=== PATIENT | male | born 1985 | race Caucasian/White ===

== ENCOUNTER 2020-07-30 08:06 | Outpatient (REF) | payer OTHER, SELFPAY ==
[2020-07-30 09:03] LABS: MANUAL DIFF FLAG NO
[2020-07-30 09:11] LABS: Basophils Absolute Auto 0.1 X10*3/uL (0.0-0.2); Basophils Percent Auto 1.2 % (0-2); Eosinophils Absolute Auto 0.1 X10*3/uL (0.0-0.4); Eosinophils Percent Auto 2.1 % (0-4); Hemoglobin 14.8 g/dl (14.0-18.0); Imm Gran Abs Auto 0.01 X10*3/uL (0.00-0.03); Imm Gran Pct Auto 0.2 % (0.0-0.4); Lymphocytes Absolute Auto 1.9 X10*3/uL (1.2-4.9); Lymphocytes Percent Auto 37.1 % (20-40); Mean Corpuscular HGB Conc 32.9 g/dl (31.0-36.0); Mean Corpuscular Volume 85.2 fL (80-98); Mean Platelet Volume 11.3 fL (9.4-12.4); Monocytes Absolute Auto 0.3 X10*3/uL (0.1-1.2); Neutrophils Absolute Auto 2.8 X10*3/uL (2.0-8.3); Neutrophils Percent Auto 53.4 % (45-73); Platelet Count 279 X10*3/uL (160-400); Red Blood Count 5.28 X10*6/uL (4.60-5.80); Red Cell Distribution Width 12.1 % (11.0-16.0); White Blood Count 5.2 X10*3/uL (4.8-10.8)
[2020-07-30 09:27] LABS: Anion Gap 13 (12-20); Blood Urea Nitrogen 12 mg/dL (9-16); Calcium 9.5 mg/dL (8.4-10.2); Carbon Dioxide 28 mmol/L (22-29); Chloride 103 mmol/L (96-108); Cholesterol 197 mg/dL; Estimated Glomerular Filt Rate > 60; Glucose Fasting 99 mg/dL (60-99); HDL Cholesterol 41 mg/dL; LDL Cholesterol Calculated 138 mg/dl; Potassium 4.5 mmol/l (3.3-5.1); Sodium 139 mmol/L (135-145); Triglycerides 94 mg/dL
== END 2020-07-30 08:07 | disposition home or self-care (01) ==
LOC: HO.LAB 08:06
PROVIDERS: PCP Internal Medicine; Visit Provider Internal Medicine
DX: E78.9 Disorder of lipoprotein metabolism, unspecified (principal)
CPT/HCPCS: 36415; 80048; 80061; 85025

== ENCOUNTER 2021-07-15 07:23 | Outpatient (REF) | payer OTHER, SELFPAY ==
[2021-07-15 09:19] LABS: Alanine Aminotransferase 66 U/L (0-40); Albumin Level 4.5 g/dL (3.5-5.0); Alkaline Phosphatase 58 U/L (39-117); Anion Gap 12 (12-20); Aspartate Amino Transferase 39 U/L (5-37); Bilirubin Total 0.5 mg/dL (0.0-1.0); Blood Urea Nitrogen 12 mg/dL (9-16); Calcium 9.6 mg/dL (8.4-10.2); Carbon Dioxide 26 mmol/L (22-29); Chloride 106 mmol/L (96-108); Cholesterol 200 mg/dL; Estimated Glomerular Filt Rate > 60; Glucose Fasting 101 mg/dL (60-99); HDL Cholesterol 37 mg/dL; LDL Cholesterol Calculated 141 mg/dl; Potassium 4.4 mmol/L (3.3-5.1); Sodium 140 mmol/L (135-145); Total Protein 7.6 g/dL (6.5-8.0); Triglycerides 114 mg/dL
== END 2021-07-15 07:24 | disposition home or self-care (01) ==
LOC: HO.LAB 07:23
PROVIDERS: PCP Internal Medicine; Visit Provider Internal Medicine
DX: E78.9 Disorder of lipoprotein metabolism, unspecified (principal)
CPT/HCPCS: 36415; 80053; 80061

== ENCOUNTER 2024-03-10 10:05 | Outpatient (AMB) | payer OTHER, SELFPAY ==
[2024-03-10 10:13] VITALS: BP 140/80; PULSE 77; TEMP 36.7; O2SAT 98
--- NOTE | 2024-03-10 10:13 | AM.OFFWIN_ITS ---
Intake Vital Signs 03/10/24 10:13 Height 5 ft 7 in BP 140/80 H Blood Pressure Location Rt brachial Position Sitting Pulse 77 Pulse Source Pulse Oximeter Temp 98.0 F Temp Source Temporal Artery Scan Pulse Oximetry (%) 98 Oxygen Delivery Method Room Air Intake Visit Reasons: EP RT side neck/shoulder pain Intake Note: pt is here for right side neck and shoulder pain Patient Tobacco Use Status: Never used Tobacco Allergies penicillin V Allergy (Unknown, Verified 03/10/24 10:13) unknown - childhood reaction Penicillins [PENICILLINS] Allergy (Unknown, Verified 03/10/24 10:13) ? RXN - OCCURED CHILD Medication List - Last Reconciled 03/10/24 by Idania Pritchett MD No Known Home Meds Do you need a note to return to daycare/school/sports/work: Yes HPI EP RT side neck/shoulder pain HPI Details Patient is a 38-year-old gentleman came in today to be evaluated for neck pain radiating to right arm Patient says that at certain position he feels shooting pain going down his right arm When he is shaving and has to look up that is when his symptoms are worse There is no weakness in the arm On examination her hand hand endband cutter is strong bilateral and equal Patient has had similar problem couple of years ago which then resolved This time it has been happening for the past 1 and half month He is taking Motrin with some relief I am ordering x-ray of his cervical spine I have also sent in script for prednisone 20 mg once a day for 5 days And diclofenac 75 mg b.i.d. with food for 10 days Patient is to return in couple of weeks for follow-up appointment [facility] Medical History Lipid disorder Family History Father Smoker ETOH abuse History of splenectomy Substance use disorder Mother Smoker Maternal Grandmother No problems noted. Maternal Grandfather HTN (hypertension) Diabetes mellitus Paternal Grandmother No problems noted. Paternal Grandfather No problems noted. Brother No problems noted. Brother No problems noted. Brother No problems noted. Brother No problems noted. Sister No problems noted. Son No problems noted. Daughter No problems noted. Other Mental health disorder Social History Housing: Apartment Alcohol intake: never Patient Tobacco Use Status: Never used Tobacco Tobacco use type: Cigarette Current occupational status: employed Review of Systems Const All systems reviewed & are unremarkable except as noted in HPI and below Physical Exam Vital Signs: Last Vital Signs Temp 98.0 F 03/10/24 10:13 Pulse 77 03/10/24 10:13 BP 140/80 H 03/10/24 10:13 Pulse Ox 98 03/10/24 10:13 Oxygen Delivery Method Room Air 03/10/24 10:13 Const General: no acute distress Orientation/consciousness: patient oriented x3 Eyes General: appearance normal, both eyes and all related structures Neck Other: Limited range of motion in extension due to pain radiating to right shoulder Resp Effort & Inspection: normal respiratory effort and able to speak in complete sentences Neuro General: patient oriented x3 Psych Mental Status: mental status grossly normal Assessment & Plan Assessment & Plan (1) Cervical radiculitis: Code(s): M54.12 - Radiculopathy, cervical region Plan Patient is a 38-year-old gentleman came in today to be evaluated for neck pain radiating to right arm Patient says that at certain position he feels shooting pain going down his right arm When he is shaving and has to look up that is when his symptoms are worse There is no weakness in the arm On examination her hand hand endband cutter is strong bilateral and equal Patient has had similar problem couple of years ago which then resolved This time it has been happening for the past 1 and half month He is taking Motrin with some relief I am ordering x-ray of his cervical spine I have also sent in script for prednisone 20 mg once a day for 5 days And diclofenac 75 mg b.i.d. with food for 10 days Patient is to return in couple of weeks for follow-up appointment Orders: Orders XR cervical spine 2V Today M54.12 - Radiculopathy, cervical region Medications: New prednisone 20 mg PO DAILY 5 tabs 0RF 5 days diclofenac sodium 25 mg PO BID 20 tabs 0RF 10 days Coding Level of Care Code Est Pt Level 4 (20445) Diagnoses Cervical radiculitis M54.12
== END 2024-03-10 10:48 | disposition home or self-care (01) ==
PROVIDERS: PCP Internal Medicine; Visit Provider Internal Medicine
DX: M54.12 Radiculopathy, cervical region (principal)
CPT/HCPCS: 99214

== ENCOUNTER 2024-03-10 10:40 | Outpatient (REF) | payer OTHER, SELFPAY ==
--- NOTE | ~2024-03-10 | XR_ITS ---
EXAMINATION: XR CERVICAL SPINE CLINICAL INFORMATION: Radiculopathy cervical region. COMPARISON: None available. TECHNIQUE: 2 views of the cervical spine. FINDINGS: Straightening of the normal cervical lordosis. Limited visualization of C7 due to overlying bony and soft tissue structures. Mild multilevel cervical spondylosis with mild loss of disc space height at C5-C6. XR/XR cervical spine 2V IMPRESSION: Mild multilevel cervical spondylosis with mild loss of disc space height at C5-C6.
== END 2024-03-10 10:41 | disposition home or self-care (01) ==
LOC: HO.HMGCX 10:40
PROVIDERS: PCP Internal Medicine; Visit Provider Internal Medicine
DX: M54.12 Radiculopathy, cervical region (principal)
CPT/HCPCS: 72040

== ENCOUNTER 2024-04-09 08:30 | Outpatient (AMB) | payer OTHER, SELFPAY ==
--- NOTE | 2024-04-09 08:31 | A.OFFPC_ITS ---
Intake Visit Reasons: 3WK F/U [place] visit Allergies penicillin V Allergy (Unknown, Verified 04/09/24 08:31) unknown - childhood reaction Penicillins [PENICILLINS] Allergy (Unknown, Verified 04/09/24 08:31) ? RXN - OCCURED CHILD Medication List - Last Reconciled 04/09/24 by Idania Pritchett MD Tobacco use date assessed: 04/09/24 Dental Screening Dental Screen Date: 04/09/24 Did you have a dental visit in the last 12 months?: Yes Did you have a dental problem in the last 6 months where you did not have access to dental care?: No Was dental information given to patient?: Patient has dentist HPI 3WK F/U [place] visit HPI Details f.u neck pain he was seen in walk in clinic few days ago was treated with Prednison and diclofenic Xray was ordered which showed Mild multilevel cervical spondylosis with mild loss of disc space height at C5-C6 patient states he keep getting shooting pain right arm and meds didnt help him he continue to work i have placed ref to pain management for further evaluation [facility] Medical History Lipid disorder Family History Father Smoker ETOH abuse History of splenectomy Substance use disorder Mother Smoker Maternal Grandmother No problems noted. Maternal Grandfather HTN (hypertension) Diabetes mellitus Paternal Grandmother No problems noted. Paternal Grandfather No problems noted. Brother No problems noted. Brother No problems noted. Brother No problems noted. Brother No problems noted. Sister No problems noted. Son No problems noted. Daughter No problems noted. Other Mental health disorder Social History Housing: Apartment Alcohol intake: never Patient Tobacco Use Status: Never used Tobacco Tobacco use type: Cigarette e-Cigarette/Vaping Use: Never Used service: No Current occupational status: employed Cognitive needs: No Hearing needs: No Vision needs: No Questionnaire Thrive Questionnaire Date Thrive assessed: 07/18/21 AUDIT C Alcohol Use Questionnaire (AUDIT-C) 1. How often do you have a drink containing alcohol?: Never 3. How often do you have six or more drinks on one occasion?: Never Total Score: 0 Score Reviewed/Action Taken: Yes CARMELINA-7 AMB Questionnaire CARMELINA-7 Date CARMELINA - 7 assessed: 07/18/21 Source: Developed by Drs. Stevan Cabello, Jayleen Maldonado, Giovany Khan and colleagues, with an educational jim from [employer]. Review of Systems Const Denies chills and Denies fever(s) ENT Denies epistaxis and Denies nasal discharge Card Denies chest pain Resp Denies chest congestion, Denies cough and Denies hemoptysis GI Denies diarrhea and Denies nausea Skin/Breast Denies rash Neuro Reports no additional complaints Psych Reports no additional complaints Endo Reports no additional complaints Physical exam (Primary Care) Tobacco/Smoking Status: Tobacco use Status Tobacco use date assessed 04/09/24 04/09/24 08:32 Patient Tobacco Use Status Never used Tobacco 04/09/24 08:32 Tobacco use type Cigarette 04/09/24 08:32 e-Cigarette/Vaping Use Never Used 04/09/24 08:32 Thrive Assessment: Date of Thrive Assessment Date Thrive assessed 07/18/21 04/09/24 08:32 Telehealth Telehealth Telehealth Platform: [employer] Location of provider rendering services: practice address Location of patient: address on file Patient Identification confirmed using: Name, : Yes Telehealth method: video Patient verbally consented to treatment: Yes Patient verbally consented to billing insurance company: Yes Minutes spent on Phone/Video with Pt.: 13 Assessment and Plan Assessment & Plan (1) Cervical radiculitis: Code(s): M54.12 - Radiculopathy, cervical region (2) Arm paresthesia, right: Code(s): R20.2 - Paresthesia of skin Plan f.u neck pain he was seen in walk in clinic few days ago was treated with Prednison and diclofenic Xray was ordered which showed Mild multilevel cervical spondylosis with mild loss of disc space height at C5-C6 patient states he keep getting shooting pain right arm and meds didnt help him he continue to work i have placed ref to pain management for further evaluation Orders: Referrals Pain Management Referral M54.12 - Radiculopathy, cervical region, R20.2 - Par esthesia of skin Coding Level of Care Code Tele Est Pt Level 3 (49808) Diagnoses Cervical radiculitis M54.12 Arm paresthesia, right R20.2
== END 2024-04-09 08:45 | disposition home or self-care (01) ==
LOC: HO.HMGC 08:30
PROVIDERS: PCP Internal Medicine; Visit Provider Internal Medicine
DX: M54.12 Radiculopathy, cervical region (principal); R20.2 Paresthesia of skin
CPT/HCPCS: 99213

== ENCOUNTER 2024-04-29 10:01 | Outpatient (AMB) | payer OTHER, SELFPAY ==
[2024-04-29 10:09] VITALS: BP 154/86; PULSE 78; O2SAT 99; BMI 39.5
--- NOTE | 2024-04-29 10:09 | MHC.OFFVIS ---
Vital Signs 04/29/24 10:09 Height 5 ft 7 in Weight 252 lb BMI 39.5 BP 154/86 H Blood Pressure Location Rt brachial Position Sitting Pulse 78 Pulse Source Pulse Oximeter Pulse Oximetry (%) 99 Oxygen Delivery Method Room Air Intake Visit Reasons: Radiculopathy, cervical region Allergies penicillin V Allergy (Unknown, Verified 04/29/24 10:10) unknown - childhood reaction Penicillins [PENICILLINS] Allergy (Unknown, Verified 04/29/24 10:10) ? RXN - OCCURED CHILD HPI Comments Details: Devin is a very pleasant 38-year-old male who presents the office today for evaluation and management of his chronic neck pain. Patient reports he has been suffering with this pain for approximately 3 months. He is unsure if it is related to heavy workouts at the gym or sleeping position. He does deny any known trauma/fall/accident. Pain today is rated as a 2/10, constant worse in the evenings Endorses some tightness across the trapezius and up into the hairline on both sides. Worse at the end of the day in after he has worked a stressful day Patient originally was evaluated in the walk-in, he was given diclofenac and prednisone which did not improve his pain. He had a recent x-ray which was reviewed, results as per below In the past he has taken Flexeril in the evening which has helped with his pain. 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 or dropping objects from the end In terms of muscle damage condition is described as tugging, pulling, tingling, burning, numb, tingling, aching, pinching Pain is negatively impacting patient's enjoyment of life, general activity, working, recreational activities including weightlifting in gym exercises Denies current use of anticoagulants Denies implantable devices, pacemaker or defibrillator Denies current use of nicotine, tobacco, alcohol or illicit substances [facility] Medical History Lipid disorder Family History Father Smoker ETOH abuse History of splenectomy Substance use disorder Mother Smoker Maternal Grandmother No problems noted. Maternal Grandfather HTN (hypertension) Diabetes mellitus Paternal Grandmother No problems noted. Paternal Grandfather No problems noted. Brother No problems noted. Brother No problems noted. Brother No problems noted. Brother No problems noted. Sister No problems noted. Son No problems noted. Daughter No problems noted. Other Mental health disorder Social History Housing: Apartment Alcohol intake: never Patient Tobacco Use Status: Never used Tobacco Tobacco use type: Cigarette e-Cigarette/Vaping Use: Never Used service: No Current occupational status: employed Cognitive needs: No Hearing needs: No Vision needs: No Review of Systems Const All systems reviewed & are unremarkable except as noted in HPI and below Physical Exam Vital Signs: Last Vital Signs Pulse 78 04/29/24 10:09 BP 154/86 H 04/29/24 10:09 Pulse Ox 99 04/29/24 10:09 Oxygen Delivery Method Room Air 04/29/24 10:09 BMI result Body Mass Index 39.5 General: awake, alert, oriented. Answers questions appropriately. Fully engaged in examination. Skin: warm, dry, intact HEENT: Normocephalic. Hearing intact. Cardiac: External chest normal in appearance. Respiratory: No cough, audible wheezing or stridor. Abdomen: without gross distension. MS: No obvious swelling or deformities. Able to transition from sit to stand unassisted. Ambulates with bilaterally normal heel strike and toe off Cervical Spine: Visible inspection without gross abnormality Moderate tenderness throughout bilateral upper and middle trapezius muscles Minimally tender to palpation midline cervical vertebrae and cervical paraspinal muscles Cervical range of motion preserved Spurling compression test positive BUE strength 5/5 Elvey's tension test positive on the right Neurological: Oriented to person, place, time and situation. Thought process intact. No gait abnormalities appreciated. Psychiatric: Appropriate mood and affect. Good judgment and insight. Results Reviewed Results Reviewed: 03/10/24 XR/XR cervical spine 2V FINDINGS: Straightening of the normal cervical lordosis. Limited visualization of C7 due to overlying bony and soft tissue structures. Mild multilevel cervical spondylosis with mild loss of disc space height at C5-C6. IMPRESSION: Mild multilevel cervical spondylosis with mild loss of disc space height at C5-C6. Assessment & Plan Assessment & Plan (1) Cervical radiculitis: Code(s): M54.12 - Radiculopathy, cervical region Category: Medical Plan Devin is a very pleasant 30-year-old male who presented to the office today for evaluation management of his chronic right shoulder pain. MRI ordered for evaluation given patient's reported numbness and tingling of the right upper extremity. Order placed for PT eval and treat Continue with Tylenol and ibuprofen as needed New prescription for cyclobenzaprine 10 mg p.o. twice daily as needed. Patient advised on cautions for use. No driving while taking this medication. 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 All questions and concerns were answered, patient agrees with the plan. Follow up after MRI/PT, sooner if needed. Orders: Orders MR cervical spine wo con Today M54.12 - Radiculopathy, cervical region PT Evaluation and Treatment Today M54.12 - Radiculopathy, cervical region, M62.838 - Other muscle spasm, S16.1XXA - Strain of muscle, fascia and tendon at neck level, initial encounter Coding Level of Care Code New Pt Level 4 (01352) Complex EM visit Add On G2211 Diagnoses Cervical radiculitis M54.12
== END 2024-04-29 10:49 | disposition home or self-care (01) ==
PROVIDERS: PCP Internal Medicine; Visit Provider Registered Nurse Emergency
DX: M54.12 Radiculopathy, cervical region (principal)
CPT/HCPCS: 99204; G2211

== ENCOUNTER → 2024-04-29 10:01 | Outpatient (BNVA) | payer OTHER, SELFPAY | PROVIDERS: PCP Internal Medicine; Visit Provider Registered Nurse Emergency | DX: M54.12 Radiculopathy, cervical region (principal) | CPT/HCPCS: 99202 ==

== ENCOUNTER 2024-05-17 18:33 | Outpatient (REF) | payer OTHER, SELFPAY ==
--- NOTE | ~2024-05-17 | MR_ITS ---
EXAMINATION: MR CERVICAL SPINE WITHOUT CONTRAST CLINICAL INFORMATION: Right-sided neck pain, weakness and numbness. COMPARISON: No priors. Correlated with x-ray dated March 10, 2024. TECHNIQUE: MRI of the cervical spine was obtained using routine sequences without contrast. FINDINGS: Craniocervical junction is intact. No bone marrow STIR signal abnormality. Multilevel marginal osteophyte formation and decreased dislocation C4-5, C5-6 and to a lesser extent C6-7. The alignment is normal. Cervical spinal cord signal is normal. C2-3: No disc herniation. No cord compression. No neuroforamina stenosis. C3-4: Broad-based disc osteophyte complex formation. No cord compression. No neuroforamina stenosis. C4-5: Broad-based disc osteophyte complex formation. No cord compression. No neuroforamina stenosis. C5-6: Right subarticular and foraminal disc herniation resulting in ventral deformity of the spinal cord without cord signal abnormality. Right neural foramina stenosis encroaching the exiting nerve roots. C6-7: Broad-based disc osteophyte complex formation. No cord compression. No neuroforamina stenosis. C7-T1: No disc herniation. No neuroforamina stenosis. No prevertebral compartment hematoma, mass or fluid collection. Flow void signal within the mean vessels is normal. Codominant vertebral arteries. MR/MR cervical spine wo con IMPRESSION: Right subarticular and foraminal disc herniation, C5-6 likely compressing the exiting nerve root. No cord edema and or myelopathy Electronically signed by: Cory Puentes MD 06/22/2024 10:13 AM EDT
== END 2024-05-17 18:34 | disposition home or self-care (01) ==
LOC: HO.MRI 18:33
PROVIDERS: PCP Internal Medicine; Visit Provider Registered Nurse Emergency
DX: M54.12 Radiculopathy, cervical region (principal)
CPT/HCPCS: 72141

== ENCOUNTER → 2024-05-17 18:33 | Outpatient (BNV) | payer OTHER, SELFPAY | PROVIDERS: PCP Internal Medicine; Visit Provider Radiology Diagnostic Radiology | DX: M54.12 Radiculopathy, cervical region (principal); R53.1 Weakness | CPT/HCPCS: 72141 ==

== ENCOUNTER 2024-06-13 06:56 | Outpatient (REF) | payer OTHER, SELFPAY ==
[2024-06-13 08:45] LABS: Alanine Aminotransferase 45 U/L (0-40); Albumin Level 4.3 g/dL (3.5-5.0); Alkaline Phosphatase 67 U/L (39-117); Anion Gap 12 (12-20); Aspartate Amino Transferase 28 U/L (5-37); Bilirubin Total 0.6 mg/dL (0.0-1.0); Blood Urea Nitrogen 12 mg/dL (9-16); Calcium 9.4 mg/dL (8.4-10.2); Carbon Dioxide 29 mmol/L (22-29); Chloride 104 mmol/L (96-108); Cholesterol 336 mg/dL (<200); Estimated Glomerular Filt Rate > 60; Glucose Fasting 99 mg/dL (60-99); HDL Cholesterol 33 mg/dL (>40); LDL Cholesterol Calculated 236 mg/dL (<100); Potassium 4.1 mmol/L (3.3-5.1); Sodium 141 mmol/L (135-145); Total Protein 7.7 g/dL (6.5-8.0); Triglycerides 336 mg/dL (<150)
[2024-06-18 17:08] LABS: Testosterone, Total 347 ng/dL (250-1100)
== END 2024-06-13 06:57 | disposition home or self-care (01) ==
LOC: HO.LAB 06:56
PROVIDERS: PCP Internal Medicine; Visit Provider Internal Medicine
DX: R79.89 Other specified abnormal findings of blood chemistry (principal); E78.9 Disorder of lipoprotein metabolism, unspecified; R53.83 Other fatigue
CPT/HCPCS: 36415; 80053; 80061; 84403

== ENCOUNTER 2024-06-18 08:27 | Outpatient (AMB) | payer OTHER, SELFPAY ==
--- NOTE | 2024-06-18 09:34 | MHC.PC.OV ---
Vital Signs 06/18/24 09:35 Height 5 ft 7 in Weight 253 lb BMI 39.6 Intake Visit Reasons: Discuss Results~ Allergies penicillin V Allergy (Unknown, Verified 04/29/24 10:10) unknown - childhood reaction Penicillins [PENICILLINS] Allergy (Unknown, Verified 04/29/24 10:10) ? RXN - OCCURED CHILD Medication List - Last Reconciled 06/18/24 by Idania Pritchett MD cyclobenzaprine 10 mg PO BID lidocaine 5% 1 patch topical DAILY PRN Tobacco use date assessed: 04/09/24 Dental Screening Dental Screen Date: 04/09/24 HPI Discuss Results~ HPI Details Patient is 38-year-old gentleman this is a telemedicine visit to go over his labs His LDL came back above 200 Patient says that he used to take medication for high lipids but then he stopped taking it I have sent simvastatin 40 mg for the patient he is to restart that and repeat labs again in 6 weeks I would encourage diet-controlled as well Patient says that he is trying to lose weight but he has not been successful He would like to have a referral to weight loss program [facility] His testosterone level came back within normal range [facility] Medical History Lipid disorder Family History Father Smoker ETOH abuse History of splenectomy Substance use disorder Mother Smoker Maternal Grandmother No problems noted. Maternal Grandfather HTN (hypertension) Diabetes mellitus Paternal Grandmother No problems noted. Paternal Grandfather No problems noted. Brother No problems noted. Brother No problems noted. Brother No problems noted. Brother No problems noted. Sister No problems noted. Son No problems noted. Daughter No problems noted. Other Mental health disorder Social History Housing: Apartment Alcohol intake: never Patient Tobacco Use Status: Never used Tobacco Tobacco use type: Cigarette e-Cigarette/Vaping Use: Never Used service: No Current occupational status: employed Cognitive needs: No Hearing needs: No Vision needs: No Questionnaire Thrive Questionnaire Date Thrive assessed: 07/18/21 CARMELINA-7 AMB Questionnaire CARMELINA-7 Date CARMELINA - 7 assessed: 07/18/21 Source: Developed by Drs. Stevan Cabello, Jayleen Maldonado, Giovany Khan and colleagues, with an educational jim from [email or web address]. Review of Systems Const Denies chills and Denies fever(s) ENT Denies epistaxis and Denies nasal discharge Card Denies chest pain Resp Denies chest congestion, Denies cough and Denies hemoptysis GI Denies diarrhea and Denies nausea Skin/Breast Denies rash Neuro Reports no additional complaints Psych Reports no additional complaints Endo Reports no additional complaints Physical exam (Primary Care) BMI result Body Mass Index 39.6 Tobacco/Smoking Status: Tobacco use Status Tobacco use date assessed 04/09/24 06/18/24 09:36 Patient Tobacco Use Status Never used Tobacco 06/18/24 09:36 Tobacco use type Cigarette 06/18/24 09:36 e-Cigarette/Vaping Use Never Used 06/18/24 09:36 Thrive Assessment: Date of Thrive Assessment Date Thrive assessed 07/18/21 06/18/24 09:36 Telehealth Telehealth Telehealth Platform: [employer] Location of provider rendering services: practice address Location of patient: address on file Patient Identification confirmed using: Name, : Yes Telehealth method: voice only Patient verbally consented to treatment: Yes Patient verbally consented to billing insurance company: Yes Patient informed of any privacy concerns related to visit: Yes Minutes spent on Phone/Video with Pt.: 13 Coding Level of Care Code Tele Est Pt Level 3 (82342) Diagnoses Lipid disorder E78.9 Class 2 severe obesity due to excess calories with serious comorbidity and body mass index (BMI) of 39.0 to 39.9 in adult E66.812; E66.01; Z68.39 Serious obesity comorbidity presence: with serious comorbidity Body mass index: BMI 39.0-39.9 Obesity classification: adult class 2 (BMI 35 - 39.9) Assessment & Plan Assessment & Plan (1) Lipid disorder: Code(s): E78.9 - Disorder of lipoprotein metabolism, unspecified Category: Medical (2) Obesity due to excess calories: Code(s): E66.09 - Other obesity due to excess calories Category: Medical Qualifiers: Serious obesity comorbidity presence: with serious comorbidity Body mass index: BMI 39.0-39.9 Obesity classification: adult class 2 (BMI 35 - 39.9) Qualified Code(s): E66.812 - Obesity, class 2; E66.01 - Morbid (severe) obesity due to excess calories; Z68.39 - Body mass index [BMI] 39.0-39.9, adult Plan Patient is 38-year-old gentleman this is a telemedicine visit to go over his labs His LDL came back above 200 Patient says that he used to take medication for high lipids but then he stopped taking it I have sent simvastatin 40 mg for the patient he is to restart that and repeat labs again in 6 weeks I would encourage diet-controlled as well Patient says that he is trying to lose weight but he has not been successful He would like to have a referral to weight loss program [facility] His testosterone level came back within normal range Orders: Orders Lipid Panel 6 Weeks E78.9 - Disorder of lipoprotein metabolism, unspecified Comprehensive [place]. Panel Fast 6 Weeks E78.9 - Disorder of lipoprotein metabolism, unspecified Referrals Bariatric Surgery Referral E66.09 - Other obesity due to excess calories Medications: New simvastatin 40 mg PO QPM 90 tabs 0RF
[2024-06-18 09:35] VITALS: BMI 39.6
== END 2024-06-18 11:25 | disposition home or self-care (01) ==
PROVIDERS: PCP Internal Medicine; Visit Provider Internal Medicine
DX: E78.9 Disorder of lipoprotein metabolism, unspecified (principal); E66.812 Obesity, class 2; E66.01 Morbid (severe) obesity due to excess calories; Z68.39 Body mass index [BMI] 39.0-39.9, adult

== ENCOUNTER → 2024-06-18 08:27 | Outpatient (BNVA) | payer OTHER, SELFPAY | PROVIDERS: PCP Internal Medicine; Visit Provider Internal Medicine ==

== ENCOUNTER 2024-07-01 09:41 | Outpatient (AMB) | payer OTHER, SELFPAY ==
--- NOTE | 2024-07-01 10:18 | A.OFFVIS_ITS ---
Intake Visit Reasons: Discuss MRI results Allergies penicillin V Allergy (Unknown, Verified 04/29/24 10:10) unknown - childhood reaction Penicillins [PENICILLINS] Allergy (Unknown, Verified 04/29/24 10:10) ? RXN - OCCURED CHILD HPI Comments Details: Telephone visit completed today with Devin for follow-up, review of recent MRI MRI reviewed, results as per below Continues with neck pain that radiates down the right arm. denies numbness, tingling, weakness of the right upper extremity Prior: Devin is a very pleasant 38-year-old male who presents the office today for evaluation and management of his chronic neck pain. Patient reports he has been suffering with this pain for approximately 3 months. He is unsure if it is related to heavy workouts at the gym or sleeping position. He does deny any known trauma/fall/accident. Pain today is rated as a 2/10, constant worse in the evenings Endorses some tightness across the trapezius and up into the hairline on both sides. Worse at the end of the day in after he has worked a stressful day Patient originally was evaluated in the walk-in, he was given diclofenac and prednisone which did not improve his pain. He had a recent x-ray which was reviewed, results as per below In the past he has taken Flexeril in the evening which has helped with his pain. 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 strength or dropping objects from the end In terms of muscle damage condition is described as tugging, pulling, tingling, burning, numb, tingling, aching, pinching Pain is negatively impacting patient's enjoyment of life, general activity, working, recreational activities including weightlifting in gym exercises Denies current use of anticoagulants Denies implantable devices, pacemaker or defibrillator Denies current use of nicotine, tobacco, alcohol or illicit substances [facility] Medical History Lipid disorder Family History Father Smoker ETOH abuse History of splenectomy Substance use disorder Mother Smoker Maternal Grandmother No problems noted. Maternal Grandfather HTN (hypertension) Diabetes mellitus Paternal Grandmother No problems noted. Paternal Grandfather No problems noted. Brother No problems noted. Brother No problems noted. Brother No problems noted. Brother No problems noted. Sister No problems noted. Son No problems noted. Daughter No problems noted. Other Mental health disorder Social History Housing: Apartment Alcohol intake: never Patient Tobacco Use Status: Never used Tobacco Tobacco use type: Cigarette e-Cigarette/Vaping Use: Never Used service: No Current occupational status: employed Cognitive needs: No Hearing needs: No Vision needs: No Review of Systems Const All systems reviewed & are unremarkable except as noted in HPI and below Physical Exam Telephone visit only, vital signs and physical exam deferred Telehealth Telehealth Telehealth Platform: Telephone Location of provider rendering services: practice address Location of patient: address on file Patient Identification confirmed using: Name, : Yes Telehealth method: voice only Patient verbally consented to treatment: Yes Patient verbally consented to billing insurance company: Yes Patient informed of any privacy concerns related to visit: Yes Minutes spent on Phone/Video with Pt.: 8 Results Reviewed Results Reviewed: 04/2024 MR CS FINDINGS: Craniocervical junction is intact. No bone marrow STIR signal abnormality. Multilevel marginal osteophyte formation and decreased dislocation C4-5, C5-6 and to a lesser extent C6-7. The alignment is normal. Cervical spinal cord signal is normal. C2-3: No disc herniation. No cord compression. No neuroforamina stenosis. C3-4: Broad-based disc osteophyte complex formation. No cord compression. No neuroforamina stenosis. C4-5: Broad-based disc osteophyte complex formation. No cord compression. No neuroforamina stenosis. C5-6: Right subarticular and foraminal disc herniation resulting in ventral deformity of the spinal cord without cord signal abnormality. Right neural foramina stenosis encroaching the exiting nerve roots. C6-7: Broad-based disc osteophyte complex formation. No cord compression. No neuroforamina stenosis. C7-T1: No disc herniation. No neuroforamina stenosis. No prevertebral compartment hematoma, mass or fluid collection. Flow void signal within the mean vessels is normal. Codominant vertebral arteries. IMPRESSION: Right subarticular and foraminal disc herniation, C5-6 likely compressing the exiting nerve root. No cord edema and or myelopathy 03/10/24 XR/XR cervical spine 2V FINDINGS: Straightening of the normal cervical lordosis. Limited visualization of C7 due to overlying bony and soft tissue structures. Mild multilevel cervical spondylosis with mild loss of disc space height at C5-C6. IMPRESSION: Mild multilevel cervical spondylosis with mild loss of disc space height at C5-C6. Assessment & Plan Assessment & Plan (1) Cervical radiculitis: Code(s): M54.12 - Radiculopathy, cervical region Category: Medical (2) Cervical disc disorder: Code(s): M50.90 - Cervical disc disorder, unspecified, unspecified cervical region Category: Medical Plan Telephone visit completed today for follow-up, review recent MRI MRI reviewed, results as per above Patient has exhausted conservative therapy including PT, home exercise program, [id number] medications, nonsteroidal anti-inflammatory medications, muscle relaxers all without improvement of his symptoms Discussed options for treatment including diagnostic interventional testing, epidural steroid injections, peripheral nerve stimulation with Sprint, RFA and more permanent neuromodulation. Will schedule for fluoroscopy guided right C5-6 parasagittal epidural steroid injection with local anesthetic All questions and concerns were answered, patient agrees with the plan. Follow up after injection, sooner if needed. Coding Level of Care Code Tele Est Pt Level 3 (50990) Complex EM visit Add On G2211 Diagnoses Cervical radiculitis M54.12 Cervical disc disorder M50.90
== END 2024-07-01 10:44 | disposition home or self-care (01) ==
LOC: HO.PMC 09:41
PROVIDERS: PCP Internal Medicine; Visit Provider Registered Nurse Emergency
DX: M54.12 Radiculopathy, cervical region (principal); M50.90 Cervical disc disorder, unspecified, unspecified cervical region
CPT/HCPCS: 99213; G2211

== ENCOUNTER → 2024-07-01 09:41 | Outpatient (BNVA) | payer OTHER, SELFPAY | PROVIDERS: PCP Internal Medicine; Visit Provider Registered Nurse Emergency ==

== ENCOUNTER 2024-08-01 09:03 | Outpatient (AMB) | payer OTHER, SELFPAY ==
[2024-08-01 09:21] VITALS: BP 136/90; PULSE 99; TEMP 36.7; O2SAT 99; BMI 35.2
--- NOTE | 2024-08-01 09:21 | MHC.OFFWIV ---
Intake Vital Signs 08/01/24 09:21 Height 5 ft 7 in Weight 225 lb BMI 35.2 BP 136/90 H Blood Pressure Location Lt brachial Position Sitting Pulse 99 Pulse Source Pulse Oximeter Temp 98.0 F Temp Source Oral Pulse Oximetry (%) 99 Oxygen Delivery Method Room Air Intake Visit Reasons: EP- Medication sec. effects Intake Note: Pt is here today c/o side effect of simvastatin: dry mouth and burning sensation Patient Tobacco Use Status: Never used Tobacco Allergies penicillin V Allergy (Unknown, Verified 08/01/24 09:24) unknown - childhood reaction Penicillins [PENICILLINS] Allergy (Unknown, Verified 08/01/24 09:24) ? RXN - OCCURED CHILD simvastatin Adverse Reaction (Uncoded 08/01/24 09:24) dry mouth HPI EP- Medication sec. effects HPI Details Patient is concerned that he is having a side effect of simvastatin: dry mouth and burning sensation in his mild with a small white spot. Discontinued simvastatin 2 days ago. Patient has very high cholesterol. He also notes that he had been on gemfibrozil in the past for elevated lipids. [facility] Medical History Lipid disorder Family History Father Smoker ETOH abuse History of splenectomy Substance use disorder Mother Smoker Maternal Grandmother No problems noted. Maternal Grandfather HTN (hypertension) Diabetes mellitus Paternal Grandmother No problems noted. Paternal Grandfather No problems noted. Brother No problems noted. Brother No problems noted. Brother No problems noted. Brother No problems noted. Sister No problems noted. Son No problems noted. Daughter No problems noted. Other Mental health disorder Social History Housing: Apartment Alcohol intake: never Patient Tobacco Use Status: Never used Tobacco Tobacco use type: Cigarette e-Cigarette/Vaping Use: Never Used service: No Current occupational status: employed Cognitive needs: No Hearing needs: No Vision needs: No Review of Systems ENT Details: White spot in mouth and dry mouth/irritation. Physical Exam Vital Signs: Last Vital Signs Temp 98.0 F 08/01/24 09:21 Pulse 99 08/01/24 09:21 BP 136/90 H 08/01/24 09:21 Pulse Ox 99 08/01/24 09:21 Oxygen Delivery Method Room Air 08/01/24 09:21 BMI result Body Mass Index 35.2 Const Other: No acute distress. Patient appears well HEENT Other: Mild erythema of oral mucosa and small white spot which patient says he scrapped off Assessment & Plan Assessment & Plan (1) Thrush, oral: Code(s): B37.0 - Candidal stomatitis Plan: Patient appears to have oral thrush. Will give him nystatin swish and swallow Hydrate well Call or return to office if worsening or not improving (2) Lipid disorder: Code(s): E78.9 - Disorder of lipoprotein metabolism, unspecified Plan: Discussed with patient that he has a significant hyperlipidemia. May not have tolerated simvastatin but should consider another statin medication for LDL cholesterol over 200 Patient agrees to try atorvastatin. Will send script Advised he follow-up with his PCP Medications: New nystatin swish and swallow 5 mL PO DAILY 10 days 50 mL 1RF atorvastatin 40 mg PO BEDTIME 90 days 90 tabs 1RF Coding Level of Care Code Est Pt Level 3 (74109) Diagnoses Thrush, oral B37.0 Lipid disorder E78.9
== END 2024-08-01 12:00 | disposition home or self-care (01) ==
LOC: HO.HMCWIC 09:04
PROVIDERS: PCP Internal Medicine
DX: B37.0 Candidal stomatitis (principal); E78.9 Disorder of lipoprotein metabolism, unspecified

== ENCOUNTER → 2024-08-01 09:03 | Outpatient (BNVA) | payer OTHER, SELFPAY | PROVIDERS: PCP Internal Medicine | DX: B37.0 Candidal stomatitis (principal); E78.9 Disorder of lipoprotein metabolism, unspecified | CPT/HCPCS: 99212 ==

== ENCOUNTER 2024-08-04 06:06 | Outpatient (REF) | payer OTHER, SELFPAY ==
--- NOTE | ~2024-08-04 | FL_ITS ---
EXAMINATION: FLUORO GUIDANCE IN TREATMENT ROOM CLINICAL INFORMATION: Cervical disc disorder, unspecified, unspecified cervical region. COMPARISON: None available. TECHNIQUE: Fluoroscopy supervised by: Dr. Puma Eaton. Fluoroscopy time: 0.2 minutes. Cumulative Dose: 1.5 mGy. DAP: 0.0261 mGy-m2 (milligray-meter squared). Images: 2. FINDINGS: A needle is present in the epidural space on the right side in the cervical spine. It is difficult to ascertain the level from the provided images. Injected contrast appears to be in the epidural space. FL/FL guidance in treatment room IMPRESSION: Fluoroscopy during procedure. Please see procedure report for additional information. Electronically signed by: Salvatore Casas MD 09/23/2024 04:50 PM [facility]
== END 2024-08-04 06:07 | disposition home or self-care (01) ==
LOC: CF 06:06
PROVIDERS: Visit Provider Anesthesiology
DX: M50.90 Cervical disc disorder, unspecified, unspecified cervical region (principal); M54.12 Radiculopathy, cervical region
CPT/HCPCS: 62321; J1100; J2003; Q9967

== ENCOUNTER 2024-08-04 08:30 | Outpatient (AMB) | payer OTHER, SELFPAY ==
[2024-08-04 08:38] VITALS: BP 136/92; PULSE 99; RESP 15; O2SAT 99
--- NOTE | 2024-08-04 08:38 | MHC.OFFVIS ---
Vital Signs 08/04/24 08:38 08/04/24 09:18 BP 136/92 H 126/86 Blood Pressure Location Lt brachial Lt brachial Position Sitting Sitting Respiration 15 14 Pulse 99 93 Pulse Source Pulse Oximeter Pulse Oximeter Pulse Oximetry (%) 99 100 Oxygen Delivery Method Room Air Room Air Intake Visit Reasons: RIGHT C5, C6 PARASAGITTAL RADHA Allergies penicillin V Allergy (Unknown, Verified 08/04/24 08:39) unknown - childhood reaction Penicillins [PENICILLINS] Allergy (Unknown, Verified 08/04/24 08:39) ? RXN - OCCURED CHILD simvastatin Adverse Reaction (Uncoded 08/04/24 08:39) dry mouth Medication List - Last Reconciled 08/04/24 by Eliana Barnett LPN atorvastatin 40 mg PO BEDTIME 90 days cyclobenzaprine 10 mg PO BID lidocaine 5% 1 patch topical DAILY PRN nystatin 5 mL PO DAILY 10 days [facility] Medical History Lipid disorder Family History Father Smoker ETOH abuse History of splenectomy Substance use disorder Mother Smoker Maternal Grandmother No problems noted. Maternal Grandfather HTN (hypertension) Diabetes mellitus Paternal Grandmother No problems noted. Paternal Grandfather No problems noted. Brother No problems noted. Brother No problems noted. Brother No problems noted. Brother No problems noted. Sister No problems noted. Son No problems noted. Daughter No problems noted. Other Mental health disorder Social History Housing: Apartment Alcohol intake: never Patient Tobacco Use Status: Never used Tobacco Tobacco use type: Cigarette e-Cigarette/Vaping Use: Never Used service: No Current occupational status: employed Cognitive needs: No Hearing needs: No Vision needs: No Physical Exam Vital Signs: Last Vital Signs Pulse 93 08/04/24 09:18 Resp 14 08/04/24 09:18 BP 126/86 08/04/24 09:18 Pulse Ox 100 08/04/24 09:18 Oxygen Delivery Method Room Air 08/04/24 09:18 Assessment & Plan Assessment & Plan (1) Cervical radiculitis: Code(s): M54.12 - Radiculopathy, cervical region Category: Medical Plan Interlaminar C5-C6 epidural steroid injection more to the right, Informed consent was obtained delineating name and date of of the patient side and site of the procedure nature of the procedure. Risks and benefits were explained as bleeding infection peripheral nerve damage spinal cord damage headache and other undisclosed risks. Patient agreed to go for the procedure. Patient came to the operating room and he was positioned prone on operating table with a pillow under the chest. The the upper back in posterior neck of the patient's were prepped with ChloraPrep and draped with sterile utility self adhesive towels. C-arm was brought over the operating field and sq picture of C5 and C6 vertebra were demonstrated on the screen. Projection of the right lamina of C6 was chosen as the start of the injection. The projection of the right lamina of C6 very close to the spinous process to the skin was injected with lidocaine 2%. After that 20 gauge Touhy needle was inserted through the skin and advanced to were the C5-C6 epidural space on anterior posterior, contralateral oblique and lateral views. When on lateral view the needle went 1 mm beyond interlaminar line injection of the contrast was performed demonstrating epidural spread of the contrast. After the treatment solution of the normal saline preservative-free 4 mLs mixed with Decadron 10 mg with trace amount of preservative-free lidocaine was injected into the needle. The needle was withdrawn sterile Band-Aid was applied. Orders: Orders FL guidance in treatment room Today M50.90 - Cervical disc disorder, unspecified, unspecified cervical region Coding Level of Care Code Procedure Only Diagnoses Cervical radiculitis M54.12
[2024-08-04 09:18] VITALS: BP 126/86; PULSE 93; RESP 14; O2SAT 100
== END 2024-08-04 09:17 | disposition home or self-care (01) ==
LOC: HO.PMCPRC 08:30
PROVIDERS: PCP Internal Medicine; Visit Provider Anesthesiology
DX: M54.12 Radiculopathy, cervical region (principal)
CPT/HCPCS: 62321

== ENCOUNTER 2024-08-25 09:47 | Outpatient (AMB) | payer OTHER, SELFPAY ==
--- NOTE | 2024-08-25 10:03 | A.OFFVIS_ITS ---
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 RXN - OCCURED CHILD simvastatin Adverse Reaction (Uncoded 08/04/24 08:39) dry mouth HPI Comments Details: Patient presents the office today for follow-up, 3 weeks status post right C5-6 epidural steroid injection Denies any relief after the injection. Continues with shooting pain down the right arm and numbness tingling to the fingers when he looks to the left or when he looks up in slightly to the left. He also endorses muscle spasm around the right scapula. Tenderness to palpation. Pain today is rated as a 4/10 He has been using ice and topical with some improvement though short lasting. 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 denies numbness, tingling, weakness of the right upper extremity Prior: Devin is a very pleasant 38-year-old male who presents the office today for evaluation and management of his chronic neck pain. Patient reports he has been suffering with this pain for approximately 3 months. He is unsure if it is related to heavy workouts at the gym or sleeping position. He does deny any known trauma/fall/accident. Pain today is rated as a 2/10, constant worse in the evenings Endorses some tightness across the trapezius and up into the hairline on both sides. Worse at the end of the day in after he has worked a stressful day Patient originally was evaluated in the walk-in, he was given diclofenac and prednisone which did not improve his pain. He had a recent x-ray which was reviewed, results as per below In the past he has taken Flexeril in the evening which has helped with his pain. 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 Endorses with some positions of his head and right arm he will develop shooting tingling numbness down the arm into the hand to include the pinky and ring finger Denies weakness of the right hand, denies decreased internal communications specialist strength or dropping objects from the end In terms of muscle damage condition is described as tugging, pulling, tingling, burning, numb, tingling, aching, pinching Pain is negatively impacting patient's enjoyment of life, general activity, working, recreational activities including weightlifting in gym exercises Denies current use of anticoagulants Denies implantable devices, pacemaker or defibrillator Denies current use of nicotine, tobacco, alcohol or illicit substances [facility] Medical History Lipid disorder Family History Father Smoker ETOH abuse History of splenectomy Substance use disorder Mother Smoker Maternal Grandmother No problems noted. Maternal Grandfather HTN (hypertension) Diabetes mellitus Paternal Grandmother No problems noted. Paternal Grandfather No problems noted. Brother No problems noted. Brother No problems noted. Brother No problems noted. Brother No problems noted. Sister No problems noted. Son No problems noted. Daughter No problems noted. Other Mental health disorder Social History Housing: Apartment Alcohol intake: never Patient Tobacco Use Status: Never used Tobacco Tobacco use type: Cigarette e-Cigarette/Vaping Use: Never Used service: No Current occupational status: employed Cognitive needs: No Hearing needs: No Vision needs: No Review of Systems Const All systems reviewed & are unremarkable except as noted in HPI and below Physical Exam Vital Signs: Last Vital Signs Pulse 98 08/25/24 10:06 BP 144/82 H 08/25/24 10:06 Pulse Ox 100 08/25/24 10:06 Oxygen Delivery Method Room Air 12/31/24 10:06 BMI result Body Mass Index 39.8 General: awake, alert, oriented. Answers questions appropriately. Fully engaged in examination. Skin: warm, dry, intact HEENT: Normocephalic. Hearing intact. Cardiac: External chest normal in appearance. Respiratory: No cough, audible wheezing or stridor. Abdomen: without gross distension. MS: No obvious swelling or deformities. Cervical Spine: Visible inspection without gross abnormality Tenderness to right trapezius/suprascapular area. Palpable trigger points and taut bands. Nontender over midline cervical vertebrae pain cervical paraspinal muscles Cervical range of motion preserved, endorses shooting pain down right arm with numbness and tingling to the fingers with left rotation and extension with slight left rotation BUE strength 5/5 Elvey's tension test positive on the right Neurological: Oriented to person, place, time and situation. Thought process intact. No gait abnormalities appreciated. Psychiatric: Appropriate mood and affect. Good judgment and insight. Results Reviewed Results Reviewed: 04/2024 MR CS FINDINGS: Craniocervical junction is intact. No bone marrow STIR signal abnormality. Multilevel marginal osteophyte formation and decreased dislocation C4-5, C5-6 and to a lesser extent C6-7. The alignment is normal. Cervical spinal cord signal is normal. C2-3: No disc herniation. No cord compression. No neuroforamina stenosis. C3-4: Broad-based disc osteophyte complex formation. No cord compression. No neuroforamina stenosis. C4-5: Broad-based disc osteophyte complex formation. No cord compression. No neuroforamina stenosis. C5-6: Right subarticular and foraminal disc herniation resulting in ventral deformity of the spinal cord without cord signal abnormality. Right neural foramina stenosis encroaching the exiting nerve roots. C6-7: Broad-based disc osteophyte complex formation. No cord compression. No neuroforamina stenosis. C7-T1: No disc herniation. No neuroforamina stenosis. No prevertebral compartment hematoma, mass or fluid collection. Flow void signal within the mean vessels is normal. Codominant vertebral arteries. IMPRESSION: Right subarticular and foraminal disc herniation, C5-6 likely compressing the exiting nerve root. No cord edema and or myelopathy 03/10/24 XR/XR cervical spine 2V FINDINGS: Straightening of the normal cervical lordosis. Limited visualization of C7 due to overlying bony and soft tissue structures. Mild multilevel cervical spondylosis with mild loss of disc space height at C5-C6. IMPRESSION: Mild multilevel cervical spondylosis with mild loss of disc space height at C5-C6. Assessment & Plan Assessment & Plan (1) Cervical radiculitis: Code(s): M54.12 - Radiculopathy, cervical region Category: Medical (2) Cervical disc disorder: Code(s): M50.90 - Cervical disc disorder, unspecified, unspecified cervical region Category: Medical (3) Strain of cervical portion of right trapezius muscle: Code(s): S16.1XXA - Strain of muscle, fascia and tendon at neck level, initial encounter Category: Medical (4) Myofascial pain on right side: Code(s): M79.18 - Myalgia, other site Category: Medical Plan Patient presented to the office today for follow up, 3 weeks status post right C5-6 RADHA Denies improvement of his pain or radiculopathy since the procedure. Referral placed for neuro spine Will schedule for right trapezius muscle trigger point injections with local anesthetic. These will be done in office with Dr. Eaton Patient has exhausted conservative therapy including PT, home exercise program, [id number] medications, nonsteroidal anti-inflammatory medications, muscle relaxers all without improvement of his symptoms All questions and concerns were answered, patient agrees with the plan. Follow up after neuro spine, sooner if needed. Orders: Referrals Neuro Spine Referral M54.12 - Radiculopathy, cervical region Coding Level of Care Code Est Pt Level 3 (79013) Complex EM visit Add On G2211 Diagnoses Cervical radiculitis M54.12 Cervical disc disorder M50.90 Strain of cervical portion of right trapezius muscle S16.1XXA Myofascial pain on right side M79.18
[2024-08-25 10:06] VITALS: BP 144/82; PULSE 98; O2SAT 100; BMI 39.8
== END 2024-08-25 10:23 | disposition home or self-care (01) ==
PROVIDERS: PCP Internal Medicine; Visit Provider Registered Nurse Emergency
DX: M54.12 Radiculopathy, cervical region (principal); M50.90 Cervical disc disorder, unspecified, unspecified cervical region; S16.1XXA Strain of muscle, fascia and tendon at neck level, initial encounter; M79.18 Myalgia, other site
CPT/HCPCS: 99213; G2211

== ENCOUNTER → 2024-08-25 09:47 | Outpatient (BNVA) | payer OTHER, SELFPAY | PROVIDERS: PCP Internal Medicine; Visit Provider Registered Nurse Emergency | DX: M54.12 Radiculopathy, cervical region (principal); M50.90 Cervical disc disorder, unspecified, unspecified cervical region; M79.18 Myalgia, other site; S16.1XXD Strain of muscle, fascia and tendon at neck level, subsequent encounter | CPT/HCPCS: 99212 ==

== ENCOUNTER 2024-08-27 10:55 | Outpatient (AMB) | payer OTHER, SELFPAY ==
--- NOTE | 2024-08-27 11:02 | A.OFFVIS_ITS ---
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 RXN - OCCURED CHILD simvastatin Adverse Reaction (Uncoded 08/27/24 11:39) dry mouth Medication List - Last Reconciled 08/27/24 by TIA Reyna-HANNAH atorvastatin 40 mg PO BEDTIME 90 days cyclobenzaprine 10 mg PO BID lidocaine 5% 1 patch topical DAILY PRN HPI Comments Details: Devin is a very pleasant 39-year-old male patient of Dr. Pritchett. He has a past medical history of lipid disorder. He presents to the office today as a new patient for borderline low testosterone. In discussion with the patient today reports having followed up with his PCP in discussing ongoing issues he has been experiencing with attempting to lose weight, lack of sleep, and changes to his mood at which time his testosterone was ordered in recommendations were made for urology referral for further assessment evaluation. These results were reviewed with the patient today. 06/18 testosterone 347. When asked he denies any previous history of recreational drug use. He denies any previous trauma however he does report previously having surgical intervention for right-sided testicular/scrotal cyst removal approximately 11 years ago. He denies any previous opioid and or steroid exposure. We discussed potential causes of borderline low testosterone as well as further assessment with hypogonadal labs. He denies any bothersome urinary issues. He denies urinary urgency, urinary frequency, incontinence, nocturia, hematuria, dysuria, foul smelling urine, changes to urinary stream, flank pain, fever, and or chills. He is happy with his current voiding parameters. He otherwise offers no other issues or concerns at this time. [facility] Medical History Lipid disorder Family History Father Smoker ETOH abuse History of splenectomy Substance use disorder Mother Smoker Maternal Grandmother No problems noted. Maternal Grandfather HTN (hypertension) Diabetes mellitus Paternal Grandmother No problems noted. Paternal Grandfather No problems noted. Brother No problems noted. Brother No problems noted. Brother No problems noted. Brother No problems noted. Sister No problems noted. Son No problems noted. Daughter No problems noted. Other Mental health disorder Social History Housing: Apartment Alcohol intake: never Patient Tobacco Use Status: Never used Tobacco Tobacco use type: Cigarette e-Cigarette/Vaping Use: Never Used service: No Current occupational status: employed Cognitive needs: No Hearing needs: No Vision needs: No Review of Systems Const All systems reviewed & are unremarkable except as noted in HPI and below Physical Exam Const General: cooperative, healthy appearing, comfortable, no acute distress, well developed, alert and awake Nutritional Appearance: overweight Orientation/consciousness: patient oriented x3 Limitations: no limitations HEENT Head: Yes normal to inspection, Yes normocephalic and Yes atraumatic Ears: hearing grossly normal bilaterally Eyes General: appearance normal, both eyes and all related structures Neck Neck: Yes normal visual inspection and Yes trachea midline Chest Chest palpation & inspection: normal inspection of the chest Resp Effort & Inspection: normal respiratory effort and able to speak in complete sentences Cardio Rate: regular rate GI Inspection: Yes normal to inspection General: Yes no CVA tenderness Back/Spine/Pelvis Back: no CVA tenderness Skin General skin exam: no rashes or lesions noted Neuro General: patient oriented x3 Extrem General: Yes normal to inspection Psych Appearance: grossly normal and well kempt Mental Status: mental status grossly normal Speech and movement: Normal speech and movement present and Clear speech present Affect: normal affect Attitude: cooperative Thought process: Normal thought process present Thought content: Normal thought content present Insight: Fair insight present (Psych) Judgement: Fair judgement present (Psych) Results AMB Urinalysis, Automated UA Leukoctes 0 Konstantin/uL Last Edit by Maryana Clarke on 08/27/24 11:24 UA Nitrite Last Edit by Maryana Clarke on 08/27/24 11:24 UA Urobilinogen 0.2 mg/dL Last Edit by Maryana Clarke on 08/27/24 11:24 UA Protein 15 mg/dL Last Edit by Maryana Clarke on 08/27/24 11:24 UA pH 6.0 Last Edit by Maryana Kassandrabronson on 08/27/24 11:24 UA Blood 0 Anup/uL Last Edit by Maryana Clarke on 08/27/24 11:24 UA Specific [place] 1.020 Last Edit by Maryana Clarke on 08/27/24 11:24 UA Ketone Last Edit by Maryana Clarke on 08/27/24 11:24 UA Bilirubin 0 mg/dL Last Edit by Maryana Clarke on 08/27/24 11:24 UA Glucose 0 mg/dL Last Edit by Maryana Clarke on 08/27/24 11:24 Results Reviewed Results Reviewed: Laboratory Last Values Urine pH (Auto) 6.0 08/27/24 11:23 Specific [place] (Auto) 1.020 08/27/24 11:23 Urine Protein (Auto) 15 mg/dL 08/27/24 11:23 Glucose (UA)(Auto) 0 mg/dL 08/27/24 11:23 Urine Blood (Auto) 0 Anup/uL 08/27/24 11:23 Urine Bilirubin (Auto) 0 mg/dL 08/27/24 11:23 Urine Urobilinogen (Auto) 0.2 mg/dL 08/27/24 11:23 Leukocyte Esterase (Auto) 0 Konstantin/uL 08/27/24 11:23 Assessment & Plan Assessment & Plan (1) Low testosterone: Code(s): R79.89 - Other specified abnormal findings of blood chemistry Category: Medical Plan In office urinalysis results reviewed with the patient today; as noted above. Recent testosterone results reviewed the patient today; as noted above. We discussed at length potential causes of borderline low testosterone. Discussed obtaining SHBG, LH, PSA, FSH, prolactin, and estradiol for further assessment evaluation; we discussed obtaining these labs 1-2 hours upon wakening. Discussed lifestyle modifications to assist with borderline low testosterone. Patient currently denies any bothersome urinary issues. He reports be happy with current voiding parameters Follow-up in 1-3 months with labs to be completed prior; or sooner with any issues, concerns, and or questions. Orders: Orders Sex Hormone Binding Globulin Today R79.89 - Other specified abnormal findings of blood chemistry Testosterone, Free/Total Today R79.89 - Other specified abnormal findings of blood chemistry AMB Urinalysis Automated Today Z13.9 - Encounter for screening, unspecified Lutenizing Hormone Today R79.89 - Other specified abnormal findings of blood chemistry Prostate Specific Antigen Today R79.89 - Other specified abnormal findings of blood chemistry Follicle Stimulating Hormone Today R79.89 - Other specified abnormal findings of blood chemistry Prolactin Today R79.89 - Other specified abnormal findings of blood chemistry Estradiol Ultra Sensitive Today E29.1 - Testicular hypofunction Patient Instructions: The patient had an opportunity to ask questions regarding the treatment plan. All questions were answered. Physical exam, labs, and imaging were discussed and reviewed in detail. As well as risks, benefits, and discussion of treatment choices. No major barriers to understanding were identified. The patient expressed understanding and agreement with the above treatment plan. The patient was made aware they should contact our office by phone for worsening of their current condition, the appearance of new symptoms, or with any questions or concerns. Compliance is encouraged with any medications and follow up testing that is ordered. It is a privilege to be allowed the opportunity to participate in? your urological care.? Again, if you have any questions or concerns If you have any questions or concerns please do not hesitate to contact me. The office is [phone]. This note is constructed using voice recognition software. While every effort has been made to ensure accuracy lead generation representative errors may have been included. Yours sincerely, PRAVEEN Reyna Coding Level of Care Code New Pt Level 3 (10618) Diagnoses Low testosterone R79.89
== END 2024-08-27 11:41 | disposition home or self-care (01) ==
PROVIDERS: PCP Internal Medicine; Visit Provider Nurse Practitioner Family
DX: R79.89 Other specified abnormal findings of blood chemistry (principal); Z13.9 Encounter for screening, unspecified
CPT/HCPCS: 99203

== ENCOUNTER → 2024-08-27 10:55 | Outpatient (BNVA) | payer OTHER, SELFPAY | PROVIDERS: PCP Internal Medicine; Visit Provider Nurse Practitioner Family | DX: R79.89 Other specified abnormal findings of blood chemistry (principal) | CPT/HCPCS: 81003; 99202 ==

== ENCOUNTER 2024-08-29 07:08 | Outpatient (REF) | payer OTHER, SELFPAY ==
[2024-08-29 07:53] LABS: Alanine Aminotransferase 116 U/L (0-40); Albumin Level 4.1 g/dL (3.5-5.0); Alkaline Phosphatase 80 U/L (39-117); Anion Gap 11 (12-20); Aspartate Amino Transferase 58 U/L (5-37); Bilirubin Total 0.8 mg/dL (0.0-1.0); Blood Urea Nitrogen 11 mg/dL (9-16); Calcium 9.1 mg/dL (8.4-10.2); Carbon Dioxide 26 mmol/L (22-29); Chloride 109 mmol/L (96-108); Cholesterol 157 mg/dL (<200); Estimated Glomerular Filt Rate > 60; Glucose Fasting 96 mg/dL (60-99); HDL Cholesterol 37 mg/dL (>40); LDL Cholesterol Calculated 87 mg/dL (<100); Potassium 3.7 mmol/L (3.3-5.1); Sodium 142 mmol/L (135-145); Total Protein 7.4 g/dL (6.5-8.0); Triglycerides 169 mg/dL (<150)
[2024-08-29 08:13] LABS: Prostate Specific Antigen 0.26 ng/mL (<0.05-4.0)
[2024-08-31 07:03] LABS: Follicle Stimulating Hormone 1.2 mIU/mL (1.4-12.8); Lutenizing Hormone 2.8 mIU/mL (1.5-9.3); Prolactin 14.9 ng/mL (2.0-18.0); Sex Hormone Binding Globulin 19 nmol/L (10-50)
[2024-09-03 17:33] LABS: Testosterone, Free 55.7 pg/mL (35.0-155.0); Testosterone, Total 293 ng/dL (250-1100)
[2024-09-06 00:04] LABS: Estradiol Ultra Sensitive 48 pg/mL (< OR = 29)
== END 2024-08-29 07:09 | disposition home or self-care (01) ==
LOC: HO.LAB 07:08
PROVIDERS: Absent Provider Nurse Practitioner Family; PCP Internal Medicine; Visit Provider Internal Medicine
DX: E29.1 Testicular hypofunction (principal); R79.89 Other specified abnormal findings of blood chemistry
CPT/HCPCS: 36415; 80053; 80061; 82670; 83001; 83002; 84146; 84153; 84270; 84402; 84403

== ENCOUNTER 2024-08-31 10:26 | Outpatient (AMB) | payer OTHER, SELFPAY ==
--- NOTE | 2024-08-31 10:29 | HO.SPINEOV ---
Vital Signs 08/31/24 10:36 Height 5 ft 7 in Weight 250 lb BMI 39.2 Intake Visit Reasons: cervical radiculopathy Intake Note: Mr. Claire is here today c/o neck pain that radiates down to mid back with right arm tingling of fingers. 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 RXN - OCCURED CHILD simvastatin Adverse Reaction (Uncoded 08/27/24 11:39) dry mouth Assessment & Plan Assessment & Plan (1) Cervical radiculopathy: Code(s): M54.12 - Radiculopathy, cervical region Category: Medical Plan Dear LARRY Vazquez, Thank you for referring Devin to our office today. He is a pleasant 39 year old male who comes in today as a referral from our colleagues in pain management. He reports about 7 months of neck pain with shooting pain into his right upper extremity. He recently had a right C5-6 epidural steroid injection and reports no relief from this injection. Per pain management notes the patient has exhausted conservative therapy including PT, home exercise program, shqo-[id number] medications, nonsteroidal anti-inflammatory medications, muscle relaxers all without improvement of his symptoms. When describing the shooting pains into his right upper extremity he states that it starts on the right side of his neck, shoots over the dorsal surface of his forearm, and terminates in his right thumb. He does report that his thumb intermittently will become numb/tingle when he has flare-ups of pain. He identifies an inciting incident of using a cable machine with his right arm at the gym back in January 2024. He reports that when engaging the machine he quickly turned his neck to the right to say hello to one of his friends, when he felt a pop in his neck causing him to drop the weight. Since then, he has had this pain. He has been having some difficulty sleeping at night, and had to buy a contour pillow, and sleep in a certain position in order to alleviate his pain. He denies any muscle weakness associated with the pain, denies any issues with dexterity, and reports no gait disturbances. PMH: High cholesterol. Denies any surgical history. Social hx: The patient does not smoke, reports no substance use. Medications: Atorvastatin, cyclobenzaprine, lidocaine patches. Allergies: Penicillin, simvastatin. Physical exam: The patient has 5/5 strength in his upper and lower extremities. He reports intermittent sensational deficits over the right thumb. Sensation is otherwise intact. Reflexes are 3+ hyperactive and bilateral patella. Reflexes are 2+ normal elsewhere. He has 2 subtle beats of clonus bilaterally. (-) King's, (-) Babinski's, (-) bilateral straight leg raise. Imaging review: MRI of the cervical spine completed here at [facility] shows right-sided paracentral disc herniation at C5-6 effacing the right side of the ventral cord & compressing the right exiting nerve root at this level. No evidence of cord signal change or myelomalacia. Impression: Devin is a pleasant 39-year-old male who comes in today with a chief complaint of neck pain and shooting pains into his right upper extremity. He has been suffering from this for about 7 months. He reports that overall the pain is relatively manageable and can be mitigated by lifestyle changes and positioning. I do believe his cervical radiculopathy as a result of the disc herniation seen at C5-6, as his pain and intermittent numbness/tingling matches this dermatomal distribution. He is at the point where he was not severely symptomatic and feels he can manage his symptoms fairly well. I encouraged him to continue pursuing treatments with our pain management team and to reach out to our office in the future if his pain worsens to the point where he would like to consider surgery. He is agreeable to this. Thank you for allowing us to care for your patient. The total time spent with this visit with this patient was 45 minutes reviewing history, physical exam, MRI imaging review, and implementation of treatment plan or further diagnostic testing Jesús Naranjo MD,PhD [facility] Coding Level of Care Code New Pt Level 4 (41624) Diagnoses Cervical radiculopathy M54.12
[2024-08-31 10:36] VITALS: BMI 39.2
== END 2024-08-31 11:34 | disposition home or self-care (01) ==
PROVIDERS: PCP Internal Medicine; Referring Provider Registered Nurse Emergency; Visit Provider Physician Assistant
DX: M54.12 Radiculopathy, cervical region (principal)
CPT/HCPCS: 99204

== ENCOUNTER 2024-09-02 09:38 | Outpatient (AMB) | payer OTHER, SELFPAY ==
[2024-09-02 09:42] VITALS: BP 126/78; PULSE 104; O2SAT 98; BMI 40.1
--- NOTE | 2024-09-02 09:42 | MHC.PC.OV ---
Vital Signs 09/02/24 09:42 Height 5 ft 7 in Weight 256 lb 2 oz BMI 40.1 BP 126/78 Blood Pressure Location Rt brachial Position Sitting Pulse 104 H Pulse Source Pulse Oximeter Pulse Oximetry (%) 98 Oxygen Delivery Method Room Air Intake Visit Reasons: f/u labs / lipids Allergies penicillin V Allergy (Unknown, Verified 09/02/24 09:42) unknown - childhood reaction Penicillins [PENICILLINS] Allergy (Unknown, Verified 09/02/24 09:42) ? RXN - OCCURED CHILD simvastatin Adverse Reaction (Uncoded 08/27/24 11:39) dry mouth Medication List - Last Reconciled 09/02/24 by Idania Pritchett MD atorvastatin 40 mg PO BEDTIME 90 days cyclobenzaprine 10 mg PO BID lidocaine 5% 1 patch topical DAILY PRN Tobacco use date assessed: 09/02/24 Dental Screening Dental Screen Date: 09/02/24 Did you have a dental visit in the last 12 months?: No Did you have a dental problem in the last 6 months where you did not have access to dental care?: No Was dental information given to patient?: Patient has dentist HPI f/u labs / lipids HPI Details Patient is a 39-year-old gentleman who has developed allergy to simvastatin He was evaluated in walk-in clinic and was prescribed nystatin oral rinse As he presented with blisters in his mouth Blisters resolved His simvastatin was changed to atorvastatin which patient is currently taking He is tolerating medication however recent labs shows slightly worsening LFTs We will be repeating the labs again mid September and then decide whether to continue statin or switch him back to gemfibrozil Patient will return end september for follow-up appointment Meanwhile I would strongly advise for him to lose weight his BMI is 40.1 [facility] Medical History Lipid disorder Family History Father Smoker ETOH abuse History of splenectomy Substance use disorder Mother Smoker Maternal Grandmother No problems noted. Maternal Grandfather HTN (hypertension) Diabetes mellitus Paternal Grandmother No problems noted. Paternal Grandfather No problems noted. Brother No problems noted. Brother No problems noted. Brother No problems noted. Brother No problems noted. Sister No problems noted. Son No problems noted. Daughter No problems noted. Other Mental health disorder Social History Housing: Apartment Alcohol intake: never Patient Tobacco Use Status: Never used Tobacco Tobacco use type: Cigarette e-Cigarette/Vaping Use: Never Used service: No Current occupational status: employed Cognitive needs: No Hearing needs: No Vision needs: No Questionnaire PHQ-9 Over the last 2 weeks, how often have you been bothered by any of the following problems? 1. Little interest or pleasure in doing things: not at all 2. Feeling down, depressed, or hopeless: not at all 3. Trouble falling or staying asleep, or sleeping too much: not at all 4. Feeling tired or having little energy: not at all 5. Poor appetite or overeating: not at all 6. Feeling bad about yourself - or that you are a failure or have let yourself or your family down: not at all 7. Trouble concentrating on things, such as reading the newspaper or watching television: not at all 8. Moving or speaking so slowly that other people could have noticed. Or the opposite - being so fidgety or restless that you have been moving around a lot more than usual: not at all 9. Thoughts that you would be better off or of hurting yourself in some way: not at all Total score: 0 Depression Screening Interpretation: Negative Depression Screening Done: Yes 46833 - PHQ-9 Billing: Yes Source: Developed by Drs. Stevan Cabello, Jayleen Maldonado, Giovany Khan and colleagues, with an educational jim from [employer]. Thrive Questionnaire Date Thrive assessed: 09/02/24 I am a: Patient What is your living situation today?: I have a steady place to live Within the past 12 months, did the food you bought not last and you didn't have the money to get more?: Never true Within the past 12 months, did you worry whether your food would run out before you got money to buy more?: Never true Do you have trouble paying for medicines?: No Do you have trouble getting transportation to medical appointments?: No Do you have trouble paying your heating and electricity bill?: No Do you have trouble taking care of your child, family member or friend?: No Do you have trouble with day-to-day activities such as bathing, preparing meals, shopping, managing finances, etc.?: No Are you currently unemployed and looking for a job?: No Are you interested in more education?: No Please select the resources that you would like help with: None Currently or been in a relationship where the following occur: I choose not to answer THRIVE Score: 0 AUDIT C Alcohol Use Questionnaire (AUDIT-C) 1. How often do you have a drink containing alcohol?: Never 3. How often do you have six or more drinks on one occasion?: Never Total Score: 0 Score Reviewed/Action Taken: Yes CARMELINA-7 AMB Questionnaire CARMELINA-7 Date CARMELINA - 7 assessed: 09/02/24 Feeling nervous, anxious, or on edge: 0 = Not at all Not being able to stop or control worryin = Not at all Worrying too much about different things: 0 = Not at all Trouble relaxin = Not at all Being so restless that it is hard to sit still: 0 = Not at all Becoming easily annoyed or irritable: 0 = Not at all Feeling afraid as if something awful might happen: 0 = Not at all Total CARMELINA-7 score (0-4 normal; 5-9 mild; 10-14 moderate; 15-21 severe): 0 Source: Developed by Drs. Stevan Cabello, Jayleen Maldonado, Giovany Khan and colleagues, with an educational jim from [employer]. CARMELINA-7 Assessment Billing CARMELINA-7 Assessment Tool: CARMELINA-7 Assessment 81350 Review of Systems Const Denies chills and Denies fever(s) ENT Denies epistaxis and Denies nasal discharge Card Denies chest pain Resp Denies chest congestion, Denies cough and Denies hemoptysis GI Denies diarrhea and Denies nausea Skin/Breast Denies rash Neuro Reports no additional complaints Psych Reports no additional complaints Endo Reports no additional complaints Physical exam (Primary Care) Vital Signs: Last Vital Signs Pulse 104 H 09/02/24 09:42 BP 126/78 09/02/24 09:42 Pulse Ox 98 09/02/24 09:42 Oxygen Delivery Method Room Air 09/02/24 09:42 BMI result Body Mass Index 40.1 Tobacco/Smoking Status: Tobacco use Status Tobacco use date assessed 09/02/24 09/02/24 09:43 Patient Tobacco Use Status Never used Tobacco 09/02/24 09:42 Tobacco use type Cigarette 09/02/24 09:42 e-Cigarette/Vaping Use Never Used 09/02/24 09:42 PHQ-9: PHQ-9 Score PHQ-9: Total score 0 09/02/24 09:43 Depression Screening Interpretation: Negative Thrive Assessment: Date of Thrive Assessment Date Thrive assessed 09/02/24 09/02/24 09:43 Currently or been in a relationship where the following occur: I choose not to answer Const General: cooperative, comfortable and no acute distress Orientation/consciousness: patient oriented x3 HENMT Head: Yes normocephalic Eyes General: appearance normal, both eyes and all related structures Neck Neck: Yes supple Resp Effort & Inspection: normal respiratory effort, no cough and no stridor Cardio Rhythm: regular rhythm Heart sounds: S1 normal heart sound present and S2 normal heart sound present Skin General skin exam: turgor normal Neuro General: patient oriented x3, tone normal and moves all extremities Extrem Right lower extremity: no edema Left lower extremity: no edema Coding Level of Care Code Est Pt Level 3 (78724) Diagnoses LFT elevation R79.89 Class 2 severe obesity due to excess calories with serious comorbidity and body mass index (BMI) of 39.0 to 39.9 in adult E66.812; E66.01; Z68.39 Body mass index: BMI 39.0-39.9 Obesity classification: adult class 2 (BMI 35 - 39.9) Serious obesity comorbidity presence: with serious comorbidity Lipid disorder E78.9 Cervical radiculopathy M54.12 Additional Codes CARMELINA-7 Assessment Billing - CARMELINA-7 Assessment Tool: CARMELINA-7 Assessment 28861 ([id number]) PHQ-9 - 34410 - PHQ-9 Billing: Yes ([id number]) Assessment & Plan Assessment & Plan (1) LFT elevation: Code(s): R79.89 - Other specified abnormal findings of blood chemistry Category: Medical (2) Obesity due to excess calories: Code(s): E66.09 - Other obesity due to excess calories Category: Medical Qualifiers: Body mass index: BMI 39.0-39.9 Obesity classification: adult class 2 (BMI 35 - 39.9) Serious obesity comorbidity presence: with serious comorbidity Qualified Code(s): E66.812 - Obesity, class 2; E66.01 - Morbid (severe) obesity due to excess calories; Z68.39 - Body mass index [BMI] 39.0-39.9, adult (3) Lipid disorder: Code(s): E78.9 - Disorder of lipoprotein metabolism, unspecified Category: Medical (4) Cervical radiculopathy: Code(s): M54.12 - Radiculopathy, cervical region Category: Medical Plan Patient is a 39-year-old gentleman who has developed allergy to simvastatin He was evaluated in walk-in clinic and was prescribed nystatin oral rinse As he presented with blisters in his mouth Blisters resolved His simvastatin was changed to atorvastatin which patient is currently taking He is tolerating medication however recent labs shows slightly worsening LFTs We will be repeating the labs again mid September and then decide whether to continue statin or switch him back to gemfibrozil Patient will return end of September for follow-up appointment Meanwhile I would strongly advise for him to lose weight his BMI is 40.1 For his neck pain patient is established with Neurosurgery [facility] and is going to have a procedure soon He takes muscle relaxer as needed for muscle spasms in the neck Orders: Orders Lipid Panel Today E66.01 - Morbid (severe) obesity due to excess calories, E66.812 - Obesity, class 2, E78.9 - Disorder of lipoprotein metabolism, unspecified, M54.12 - Radiculopathy, cervical region, R79.89 - Other specified abnormal findings of blood chemistry, Z68.39 - Body mass index [BMI] 39.0-39.9, adult Complete Blood Count Auto Diff Today E66.01 - Morbid (severe) obesity due to excess calories, E66.812 - Obesity, class 2, E78.9 - Disorder of lipoprotein metabolism, unspecified, M54.12 - Radiculopathy, cervical region, R79.89 - Other specified abnormal findings of blood chemistry, Z68.39 - Body mass index [BMI] 39.0-39.9, adult Comprehensive [place]. Panel Fast Today E66.01 - Morbid (severe) obesity due to excess calories, E66.812 - Obesity, class 2, E78.9 - Disorder of lipoprotein metabolism, unspecified, M54.12 - Radiculopathy, cervical region, R79.89 - Other specified abnormal findings of blood chemistry, Z68.39 - Body mass index [BMI] 39.0-39.9, adult
== END 2024-09-02 10:15 | disposition home or self-care (01) ==
PROVIDERS: PCP Internal Medicine; Visit Provider Internal Medicine
DX: R79.89 Other specified abnormal findings of blood chemistry (principal); E66.812 Obesity, class 2; E66.01 Morbid (severe) obesity due to excess calories; Z68.39 Body mass index [BMI] 39.0-39.9, adult; E78.9 Disorder of lipoprotein metabolism, unspecified; M54.12 Radiculopathy, cervical region

== ENCOUNTER → 2024-09-02 09:38 | Outpatient (BNVA) | payer OTHER, SELFPAY | PROVIDERS: PCP Internal Medicine; Visit Provider Internal Medicine | DX: E66.812 Obesity, class 2 (principal); R79.9 Abnormal finding of blood chemistry, unspecified; E78.9 Disorder of lipoprotein metabolism, unspecified; M54.12 Radiculopathy, cervical region; Z68.39 Body mass index [BMI] 39.0-39.9, adult | CPT/HCPCS: 96127; 99212 ==

== ENCOUNTER 2024-10-13 06:13 | Outpatient (REF) | payer OTHER, SELFPAY ==
--- OUTSIDE RECORDS SUMMARY | 2024-10-13 06:16 | XMS_ITS | Clinical Summary ---
Author Organization [facility] ity Address [address] [place] [address] Care Team Providers Care Packing Supervisor Name Role Phone Idania Pritchett MD Primary Care Provider [phone] Social History Tobacco Use Types Packs/Day Years Used Date Smoking Tobacco: Never Assessed Sex and Gender Information Value Date Recorded Sex Assigned at Not on file Legal Sex Male 8:01 PM EDT Gender Identity Not on file Sexual Orientation Not on file Plan of Treatment Upcoming Encounters Date Type Department Care Team ([facility] st Contact Info) Description 04/27/2025 10:45 AM EDT Office Visit Bariatric Surgery - [place] [address] [place] [phone] Eli Jones MD [address] [place] [address] Health Maintenance Due Date Last Done Comments DTaP,Tdap,and Td Vaccines (1 - Tdap) 2004 Hepatitis B Vaccines (1 of 3 - 19+ 3-dose series) 2004 COVID-19 Vaccine ( - 2023-2 5 season) 2024 Influenza Vaccine (#1) 2024 Cholesterol Screening (Lipid Panel) 06/26/2024 Depression Screening 06/26/2024 HIV Screening 06/26/2024 Hepatitis C Screening 06/26/2024 Social Influencers of Health Screening 06/26/2024 HIB Vaccines Aged Out No longer eligi ble based on patient's age to complete this topic HPV Vaccines Aged Out No longer eligi ble based on patient's age to complete this topic Hepatitis A Vaccines Aged Out No long er eligible based on patient's age to complete this topic IPV Vaccines Aged Out No longer eligi ble based on patient's age to complete this topic MMR Vaccines Aged Out No longer eligi ble based on patient's age to complete this topic Meningococcal ACWY Vaccine Aged Out N o longer eligible based on patient's age to complete this topic Meningococcal B Vacine Aged Out No lo nger eligible based on patient's age to complete this topic Pneumococcal Vaccine: Pediat rics (0 to 5 Years) and At-Risk Patients (6 to 64 Years) Aged Out No longer eligible b ased on patient's age to complete this topic RSV Immunization Patients Un elvin 20 months Aged Out No longer eligible b ased on patient's age to complete this topic Varicella Vaccines Aged Out No longer eligible based on patient's age to complete this topic Insurance [facility] [address] Care Teams Packing Supervisor Relationship Specialty Start Date End Date Idania Pritchett MD [address] [place] [phone] PCP - General Internal Medicine 09/28/24
[2024-10-13 06:23] LABS: MANUAL DIFF FLAG NO
[2024-10-13 07:48] LABS: Basophils Absolute Auto 0.1 X10*3/uL (0.0-0.2); Basophils Percent Auto 1.1 % (0-2); Eosinophils Absolute Auto 0.1 X10*3/uL (0.0-0.4); Eosinophils Percent Auto 1.8 % (0-4); Hematocrit 46.1 % (42.0-52.0); Hemoglobin 15.2 g/dl (14.0-18.0); Imm Gran Abs Auto 0.02 X10*3/uL (0.00-0.03); Imm Gran Pct Auto 0.3 % (0.0-0.4); Lymphocytes Absolute Auto 2.9 X10*3/uL (1.2-4.9); Lymphocytes Percent Auto 40.5 % (20-40); Mean Corpuscular Hemoglobin 28.1 pg (27.0-33.0); Mean Corpuscular Volume 85.2 fL (80.0-98.0); Monocytes Absolute Auto 0.4 X10*3/uL (0.1-1.2); Monocytes Percent Auto 5.5 % (2-11); Neutrophils Absolute Auto 3.6 x10*3/uL (2.0-8.3); Neutrophils Percent Auto 50.8 % (45-73); Platelet Count 263 X10*3/uL (160-400); Red Blood Count 5.41 X10*6/uL (4.60-5.80); Red Cell Distribution Width 12.3 % (11.0-16.0); White Blood Count 7.1 X10*3/uL (4.8-10.8)
[2024-10-13 08:25] LABS: Albumin Level 4.3 g/dL (3.5-5.0); Alkaline Phosphatase 72 U/L (39-117); Anion Gap 15 (12-20); Aspartate Amino Transferase 46 U/L (5-37); Bilirubin Total 0.5 mg/dL (0.0-1.0); Blood Urea Nitrogen 14 mg/dL (9-16); Calcium 9.3 mg/dL (8.4-10.2); Carbon Dioxide 23 mmol/L (22-29); Chloride 105 mmol/L (96-108); Cholesterol 319 mg/dL (<200); Estimated Glomerular Filt Rate > 60; Glucose Fasting 94 mg/dL (60-99); HDL Cholesterol 38 mg/dL (>40); Potassium 3.7 mmol/L (3.3-5.1); Sodium 139 mmol/L (135-145); Total Protein 8.2 g/dL (6.5-8.0); Triglycerides 409 mg/dL (<150)
[2024-10-13 08:42] LABS: Alanine Aminotransferase 64 U/L (0-40)
[2024-10-14 03:59] LABS: Lutenizing Hormone 2.2 mIU/mL (1.5-9.3)
[2024-10-17 14:58] LABS: Testosterone, Free 74.4 pg/mL (35.0-155.0); Testosterone, Total 318 ng/dL (250-1100)
== END 2024-10-13 06:14 | disposition home or self-care (01) ==
LOC: HO.LAB 06:13
PROVIDERS: Nurse Practitioner Family; PCP Internal Medicine; Visit Provider Internal Medicine
DX: M54.12 Radiculopathy, cervical region (principal); E78.9 Disorder of lipoprotein metabolism, unspecified; Z68.39 Body mass index [BMI] 39.0-39.9, adult; E66.01 Morbid (severe) obesity due to excess calories; E66.812 Obesity, class 2; R79.89 Other specified abnormal findings of blood chemistry
CPT/HCPCS: 36415; 80053; 80061; 83002; 84402; 84403; 85025

== ENCOUNTER 2024-10-16 09:33 | Outpatient (AMB) | payer OTHER, SELFPAY ==
[2024-10-16 09:36] VITALS: BP 132/76; PULSE 93; RESP 18; TEMP 36.8; O2SAT 98; BMI 39.8
--- NOTE | 2024-10-16 09:36 | A.OFFPC_ITS ---
Vital Signs 10/16/24 09:36 Height 5 ft 7 in Weight 254 lb 6 oz BMI 39.8 BP 132/76 Blood Pressure Location Rt brachial Position Sitting Respiration 18 Pulse 93 Pulse Source Pulse Oximeter Temp 98.2 F Temp Source Oral Pulse Oximetry (%) 98 Oxygen Delivery Method Room Air Intake Visit Reasons: 1m follow up Allergies penicillin V Allergy (Unknown, Verified 10/16/24 09:37) unknown - childhood reaction Penicillins [PENICILLINS] Allergy (Unknown, Verified 10/16/24 09:37) ? RXN - OCCURED CHILD simvastatin Adverse Reaction (Uncoded 09/30/24 12:12) dry mouth Medication List - Last Reconciled 10/16/24 by Idania Pritchett MD clomiphene citrate 100 mg (2 x 50 mg) PO DAILY 7 days cyclobenzaprine 10 mg PO BID lidocaine 5% 1 patch topical DAILY PRN Tobacco use date assessed: 10/16/24 Dental Screening Dental Screen Date: 10/16/24 Did you have a dental visit in the last 12 months?: Yes Was dental information given to patient?: Patient has dentist HPI 1m follow up HPI Details The patient is a 39-year-old male presenting with evaluation of hypertriglyceridemia and LFT elevation - Discontinued atorvastatin due to abdom inal pain, with subsequent improvement in liver enzyme levels. - Hypertriglyceridemia is present with a level of 409 mg/dL; genetic predisposition to hypercholesterolemia acknowledged. - Secondary hypogonadism under investiga tion; a drop in testosterone levels noted, and Clomiphene therapy initiated. Through Urology - Pending surgery for cervical disc dise ase, opting for disc replacement to avoid reduced neck mobility associated with plating. 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) - Secondary Hypogonadism - Cervical Disc Disease - obesity Patient Instructions - cardiology referral placed for the man agement of lipid disorder - Schedule a physical examination around early December Review of Systems - General: No fever no chills - Neurological: No headaches no dizziness - Ear nose throat: No sore throat no hearing difficulty no ear pain - Cardiovascular: No syncope, no chest pain, no palpitations - Gastrointestinal: No nausea vomiting or diarrhea - Endocrine: No polyuria polydipsia no heat intolerance - Genitourinary: No dysuria , no blood in urine Physical Exam General: No acute distress HEENT: No acute findings Respiratory system: Able to talk in full sentences, no stridor cardiovascular: S1-S2 Extremities: No new findings PASTORAL COUNSELOR: Alert awake oriented x3 motor sensory intact Skin: Normal turgor [facility] Medical History Lipid disorder Family History Father Smoker ETOH abuse History of splenectomy Substance use disorder Mother Smoker Maternal Grandmother No problems noted. Maternal Grandfather HTN (hypertension) Diabetes mellitus Paternal Grandmother No problems noted. Paternal Grandfather No problems noted. Brother No problems noted. Brother No problems noted. Brother No problems noted. Brother No problems noted. Sister No problems noted. Son No problems noted. Daughter No problems noted. Other Mental health disorder Social History Housing: Apartment Alcohol intake: never Patient Tobacco Use Status: Never used Tobacco Tobacco use type: Cigarette e-Cigarette/Vaping Use: Never Used service: No Current occupational status: employed Cognitive needs: No Hearing needs: No Vision needs: No Questionnaire PHQ-9 Over the last 2 weeks, how often have you been bothered by any of the following problems? 1. Little interest or pleasure in doing things: not at all 2. Feeling down, depressed, or hopeless: not at all 3. Trouble falling or staying asleep, or sleeping too much: not at all 4. Feeling tired or having little energy: not at all 5. Poor appetite or overeating: not at all 6. Feeling bad about yourself - or that you are a failure or have let yourself or your family down: not at all 7. Trouble concentrating on things, such as reading the newspaper or watching television: not at all 8. Moving or speaking so slowly that other people could have noticed. Or the opposite - being so fidgety or restless that you have been moving around a lot more than usual: not at all 9. Thoughts that you would be better off or of hurting yourself in some way: not at all Total score: 0 Depression Screening Interpretation: Negative Depression Screening Done: Yes 55235 - PHQ-9 Billing: Yes Source: Developed by Drs. Stevan Cabello, Giovany Alarcon and colleagues, with an educational jim from [employer]. Thrive Questionnaire Date Thrive assessed: 10/16/24 I am a: Patient What is your living situation today?: I have a steady place to live Within the past 12 months, did the food you bought not last and you didn't have the money to get more?: Never true Within the past 12 months, did you worry whether your food would run out before you got money to buy more?: Never true Do you have trouble paying for medicines?: No Do you have trouble getting transportation to medical appointments?: No Do you have trouble paying your heating and electricity bill?: No Do you have trouble taking care of your child, family member or friend?: No Do you have trouble with day-to-day activities such as bathing, preparing meals, shopping, managing finances, etc.?: No Are you currently unemployed and looking for a job?: No Are you interested in more education?: No Please select the resources that you would like help with: None Currently or been in a relationship where the following occur: I choose not to answer THRIVE Score: 0 AUDIT C Alcohol Use Questionnaire (AUDIT-C) 1. How often do you have a drink containing alcohol?: Never 3. How often do you have six or more drinks on one occasion?: Never Total Score: 0 Score Reviewed/Action Taken: Yes CARMELINA-7 AMB Questionnaire CARMELINA-7 Date CARMELINA - 7 assessed: 10/16/24 Feeling nervous, anxious, or on edge: 0 = Not at all Not being able to stop or control worryin = Not at all Worrying too much about different things: 0 = Not at all Trouble relaxin = Not at all Being so restless that it is hard to sit still: 0 = Not at all Becoming easily annoyed or irritable: 0 = Not at all Feeling afraid as if something awful might happen: 0 = Not at all Total CARMELINA-7 score (0-4 normal; 5-9 mild; 10-14 moderate; 15-21 severe): 0 Source: Developed by Drs. Stevan Cabello, Giovany Alarcon and colleagues, with an educational jim from [employer]. CARMELINA-7 Assessment Billing CARMELINA-7 Assessment Tool: CARMELINA-7 Assessment 68916 Physical exam (Primary Care) Vital Signs: Last Vital Signs Temp 98.2 F 10/16/24 09:36 Pulse 93 10/16/24 09:36 Resp 18 10/16/24 09:36 BP 132/76 10/16/24 09:36 Pulse Ox 98 10/16/24 09:36 Oxygen Delivery Method Room Air 10/16/24 09:36 BMI result Body Mass Index 39.8 Tobacco/Smoking Status: Tobacco use Status Tobacco use date assessed 10/16/24 10/16/24 09:44 Patient Tobacco Use Status Never used Tobacco 10/16/24 09:44 Tobacco use type Cigarette 10/16/24 09:44 e-Cigarette/Vaping Use Never Used 10/16/24 09:44 PHQ-9: PHQ-9 Score PHQ-9: Total score 0 10/16/24 09:49 Depression Screening Interpretation: Negative Thrive Assessment: Date of Thrive Assessment Date Thrive assessed 10/16/24 10/16/24 09:44 Currently or been in a relationship where the following occur: I choose not to answer Coding Level of Care Code Est Pt Level 3 (69924) Diagnoses Lipid disorder E78.9 Additional Codes CARMELINA-7 Assessment Billing - CARMELINA-7 Assessment Tool: CARMELINA-7 Assessment 76851 ([id number]) PHQ-9 - 32003 - PHQ-9 Billing: Yes ([id number]) Assessment & Plan Assessment & Plan (1) Lipid disorder: Code(s): E78.9 - Disorder of lipoprotein metabolism, unspecified Category: Medical Plan The patient is a 39-year-old male presenting with evaluation of hypertriglyceridemia and LFT elevation - Discontinued atorvastatin due to abdominal pain, with subsequent improvement in liver enzyme levels. - Hypertriglyceridemia is present with a level of 409 mg/dL; genetic predisposition to hypercholesterolemia acknowledged. - Secondary hypogonadism under investigation; a drop in testosterone levels noted, and Clomiphene therapy initiated. Through Urology - Pending surgery for cervical disc disease, opting for disc replacement to avoid reduced neck mobility associated with plating. 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
--- OUTSIDE RECORDS SUMMARY | 2024-10-16 10:04 | XMS_ITS | Clinical Summary ---
Author Organization [facility] ity Address [address] [place] [address] Care Team Providers Care Hospitalist Name Role Phone Idania Pritchett MD Primary Care Provider [phone] Social History Tobacco Use Types Packs/Day Years Used Date Smoking Tobacco: Never Assessed Sex and Gender Information Value Date Recorded Sex Assigned at Not on file Legal Sex Male 8:01 PM EDT Gender Identity Not on file Sexual Orientation Not on file Plan of Treatment Upcoming Encounters Date Type Department Care Team ([facility] st Contact Info) Description 04/27/2025 10:45 AM EDT Office Visit Bariatric Surgery - [place] [address] [place] [phone] Eli Jones MD [address] [place] [address] Health Maintenance Due Date Last Done Comments [...] patient's age to complete this topic Insurance [facility] Care Teams Hospitalist Relationship Specialty Start Date End Date Idania Pritchett MD [address] [place] [phone] PCP - General Internal Medicine 09/28/24
== END 2024-10-16 10:02 | disposition home or self-care (01) ==
PROVIDERS: PCP Internal Medicine; Visit Provider Internal Medicine
DX: E78.9 Disorder of lipoprotein metabolism, unspecified (principal)

== ENCOUNTER → 2024-10-16 09:33 | Outpatient (BNVA) | payer OTHER, SELFPAY | PROVIDERS: PCP Internal Medicine; Visit Provider Internal Medicine | DX: E78.9 Disorder of lipoprotein metabolism, unspecified (principal) | CPT/HCPCS: 96127; 99212 ==

== ENCOUNTER 2024-11-02 10:41 | Outpatient (AMB) | payer OTHER, SELFPAY ==
--- NOTE | 2024-11-02 10:46 | A.SPINEOV_ITS ---
Intake Visit Reasons: discuss surgical options Intake Note: Mr. Claire is here today to discuss surgical options. Hvac Instructor Required: No Allergies penicillin V Allergy (Unknown, Verified 10/16/24 09:37) unknown - childhood reaction Penicillins [PENICILLINS] Allergy (Unknown, Verified 10/16/24 09:37) ? RXN - OCCURED CHILD simvastatin Adverse Reaction (Uncoded 09/30/24 12:12) dry mouth Assessment & Plan Assessment & Plan (1) Cervical radiculopathy: Code(s): M54.12 - Radiculopathy, cervical region Category: Medical Plan HPI: Devin is a pleasant 39 year old male who comes in today for a follow up visit after discussing potential treatment options with pain management. He reports that his posterior neck pain with shooting pains down his right arm continues to worsen. He identified an initial inciting incident of a gym-related injury last year when attempting to pull down heavy weight on a machine. He states the pain now radiates all the way down his arm into his right middle and ring finger. He also reports intermittent numbness and tingling that accompanies the pain. To recap he has tried a right C5-6 epidural steroid injection which did not provide him with pain relief, he has done PT, tried a home exercise program, has taken [id number] medications (including nonsteroidal anti- inflammatory medications), and has attempted to utilize muscle relaxers all without good symptom resolution. 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 He would prefer to have it address surgically if possible, as it has significantly afffected his ADLs and quality of life. Allergies: No changes from previous visit. Medications: No changes from previous visit. Imaging: Reviewed cervical spine MRI from April 2024. Right sided paracentric disc herniation. 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 Since then he has had shooting pain down his right upper extremity. Initially he stated this was radiating toward the thumb, but today he states it is radiating into his middle and ring finger on the right side. He has attempted nearly all forms of conservative management outside of narcotic pain control. He comes in today requesting a surgical solution for his pain. The dermatomal distribution of his pain matches the C6 nerve which is being impinged on MRI imaging. For this reason I believe he would be a good candidate for C5-6 artificial disc. I will discuss this case with Dr. Naranjo and update the patient based on his surgical decision making. We did discuss what this surgery would entail, and discussed potential risks / benefits related to the surgery if Dr. Narajno does decide to offer this. Devin was given risk and benefits of surgery including but not limited to infection, hematoma, nerve injury, durotomy, weakness, bowel/bladder injury, persistent pain, as well as the option to continue with conservative treatment and patient wishes to proceed with surgery. He is aware he should stop NSAIDs 7 days prior to surgery. All questions were answered to the best of our ability. If there is anything about this patients medical history that we have overlooked or concerns you have about us proceeding with surgery we would appreciate any input you can offer. Jesús Naranjo MD,PhD [facility] Coding Level of Care Code Est Pt Level 3 (63252) Diagnoses Cervical radiculopathy M54.12
--- OUTSIDE RECORDS SUMMARY | 2024-11-02 12:05 | XMS_ITS | Clinical Summary ---
Author Organization [facility] ity Address [address] [place] [address] Care Team Providers Care Authors Motivational Name Role Phone Idania Pritchett MD Primary Care Provider [phone] Social History Tobacco Use Types Packs/Day Years Used Date Smoking Tobacco: Never Assessed Sex and Gender Information Value Date Recorded Sex Assigned at Not on file Legal Sex Male 8:01 PM EDT Gender Identity Not on file Sexual Orientation Not on file Plan of Treatment Upcoming Encounters Date Type Department Care Team ([facility] st Contact Info) Description 04/27/2025 10:45 AM EDT Office Visit Bariatric Surgery - [place] [address] [place] [phone] Eli Jones MD [address] [place] [address] Health Maintenance Due Date Last Done Comments [...] patient's age to complete this topic Insurance [facility] Care Teams Authors Motivational Relationship Specialty Start Date End Date Idania Pritchett MD [address] [place] [phone] PCP - General Internal Medicine 09/28/24
== END 2024-11-02 11:10 | disposition home or self-care (01) ==
PROVIDERS: PCP Internal Medicine; Visit Provider Physician Assistant
DX: M54.12 Radiculopathy, cervical region (principal)
CPT/HCPCS: 99213

== ENCOUNTER → 2024-11-02 10:41 | Outpatient (BNVA) | payer OTHER, SELFPAY | PROVIDERS: PCP Internal Medicine; Visit Provider Physician Assistant | DX: M54.12 Radiculopathy, cervical region (principal) | CPT/HCPCS: 99212 ==

== ENCOUNTER 2024-11-07 07:04 | Outpatient (REF) | payer OTHER, SELFPAY ==
[2024-11-07 08:54] LABS: Prostate Specific Antigen 0.29 ng/mL (<0.05-4.0)
[2024-11-09 03:19] LABS: Follicle Stimulating Hormone 3.9 mIU/mL (1.4-12.8); Lutenizing Hormone 5.6 mIU/mL (1.5-9.3); Prolactin 9.2 ng/mL (2.0-18.0); Sex Hormone Binding Globulin 28 nmol/L (10-50)
[2024-11-14 01:49] LABS: Testosterone, Free 107.5 pg/mL (35.0-155.0); Testosterone, Total 611 ng/dL (250-1100)
[2024-11-16 04:13] LABS: Estradiol Ultra Sensitive 66 pg/mL (< OR = 29)
== END 2024-11-07 07:05 | disposition home or self-care (01) ==
LOC: HO.LAB 07:04
PROVIDERS: PCP Internal Medicine; Visit Provider Nurse Practitioner Family
DX: R79.89 Other specified abnormal findings of blood chemistry (principal)
CPT/HCPCS: 36415; 82670; 83001; 83002; 84146; 84153; 84270; 84402; 84403

== ENCOUNTER 2024-11-19 10:53 | Outpatient (AMB) | payer OTHER, SELFPAY ==
--- NOTE | 2024-11-19 11:03 | HO.SPINEOV ---
Intake Visit Reasons: has a few questions prior sx Intake Note: Mr. Claire is here today to discuss surgery. 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 RXN - OCCURED CHILD simvastatin Adverse Reaction (Uncoded 09/30/24 12:12) dry mouth Assessment & Plan Assessment & Plan (1) Cervical radiculopathy: Code(s): M54.12 - Radiculopathy, cervical region Category: Medical Plan Devin is a pleasant 39-year-old male who comes in today with some questions regarding proposed surgery. To recap his imaging was reviewed by Dr. Naranjo who noticed that he had a very straight neck and an almost complete loss of cervical lordosis. Because of this he would have very little articulation of an artificial disc, causing the artificial disc to essentially fuse in place, defeating the purpose of the disc. For this reason Dr. Naranjo suggested proceeding with a C5-6 anterior cervical discectomy & fusion. He is agreeable to this. We reviewed his images in office today and again discussed risks/benefits. The patient was given risk and benefits of surgery including but not limited to infection, hematoma, nerve injury, durotomy, weakness, trachea / esophageal injury, hoarseness, difficulty swallowing, persistent pain, as well as the option to continue with conservative treatment and patient wishes to proceed with surgery. They are aware they should stop NSAIDs 7 days prior to surgery. All questions were answered to the best of our ability. If there is anything about this patients medical history that we have overlooked or concerns you have about us proceeding with surgery we would appreciate any input you can offer. Jesús Naranjo MD,PhD [facility] Coding Level of Care Code Est Pt Level 2 (46121) Diagnoses Cervical radiculopathy M54.12
--- OUTSIDE RECORDS SUMMARY | 2024-11-19 14:26 | XMS_ITS | Clinical Summary ---
Author Organization [facility] ity Address [address] [place] [address] Care Team Providers Care Laborer Wharf Name Role Phone Idania Pritchett MD Primary Care Provider [phone] Social History Tobacco Use Types Packs/Day Years Used Date Smoking Tobacco: Never Assessed Sex and Gender Information Value Date Recorded Sex Assigned at Not on file Legal Sex Male 8:01 PM EDT Gender Identity Not on file Sexual Orientation Not on file Plan of Treatment Upcoming Encounters Date Type Department Care Team ([facility] st Contact Info) Description 04/27/2025 10:45 AM EDT Office Visit Bariatric Surgery - [place] [address] [place] [phone] Eli Jones MD [address] [place] [address] Health Maintenance Due Date Last Done Comments [...] topic Insurance [facility] [place] [address] Care Teams Laborer Wharf Relationship Specialty Start Date End Date Idania Pritchett MD [address] [place] [phone] PCP - General Internal Medicine 09/28/24
== END 2024-11-19 11:37 | disposition home or self-care (01) ==
LOC: HO.HNS 10:54
PROVIDERS: PCP Internal Medicine; Visit Provider Physician Assistant
DX: M54.12 Radiculopathy, cervical region (principal)
CPT/HCPCS: 99212

== ENCOUNTER → 2024-11-19 10:53 | Outpatient (BNVA) | payer OTHER, SELFPAY | PROVIDERS: PCP Internal Medicine; Visit Provider Physician Assistant | DX: M54.12 Radiculopathy, cervical region (principal) | CPT/HCPCS: 99212 ==

== ENCOUNTER 2024-11-23 11:20 | Outpatient (AMB) | payer OTHER, SELFPAY ==
--- NOTE | 2024-11-23 11:39 | A.OFFVIS_ITS ---
Intake Visit Reasons: 1m/labs(test pending) Intake Note: Patient presents today for follow up on low testosterone and labs Urology Med: None Antibiotic Allergy: Penicillins Blood Thinner: None Candy Spreader Required: No Accompanied by: Self / Same As Patient Allergies penicillin V Allergy (Unknown, Verified 11/23/24 12:08) unknown - childhood reaction Penicillins [PENICILLINS] Allergy (Unknown, Verified 11/23/24 12:08) ? RXN - OCCURED CHILD simvastatin Adverse Reaction (Uncoded 11/23/24 12:08) dry mouth Medication List - Last Reconciled 11/23/24 by TIA Reyna-HANNAH cyclobenzaprine 10 mg PO BID gemfibrozil 600 mg PO BID 90 days lidocaine 5% 1 patch topical DAILY PRN HPI Comments Details: Devin is a very pleasant 39-year-old male patient of Dr. Pritchett. He has a past medical history of lipid disorder. He presents to the office today for follow-up of his borderline hypogonadism. In discussion with the patient today he reports to be doing and feeling well. He reports having completed clomid as prescribed. Recent labs reviewed with the patient today as noted and trended below: PSA: 09/19 0., 11/17 0.3 Estradiol: 09/19 48, 11/17 66 FSH 09/19 1.2, FSH 3.9 LH 09/19 2.8, 11/17 5.6 Prolactin 09/19 14.9, 11/17 9.2 Total testosterone 05/29 347, 09/19 293, 11/17 611 Free testosterone 09/19 55.7, 11/17 107.5 SHBG 09/19 19, 11-17 28 We discussed increase in hypogonadism labs. We discussed continuing Clomid at a lower dose however patient discusses feeling while on medication he experienced issues with his erections. He reports feeling erections were adequate for penetration however not as firm as what he is accustomed to. He would like to continue with surveillance monitoring at this time. He discusses his ongoing issues with his lipidemia and having switch medications due to increase in liver enzymes. He is working with his PCP at this time regarding this issue. He otherwise denies any bothersome urinary issues or concerns. He denies any previous recreational drug use. He denies any previous trauma however he does report previously having surgical intervention for right-sided testicular/scrotal cyst removal approximately 11 years ago. He denies any previous opioid and or steroid exposure. We discussed potential causes of borderline low testosterone. He denies urinary urgency, urinary frequency, incontinence, nocturia, hematuria, dysuria, foul smelling urine, changes to urinary stream, flank pain, fever, and or chills. He is happy with his current voiding parameters. He otherwise offers no other issues or concerns at this time. [facility] Medical History Lipid disorder Family History Father Smoker ETOH abuse History of splenectomy Substance use disorder Mother Smoker Maternal Grandmother No problems noted. Maternal Grandfather HTN (hypertension) Diabetes mellitus Paternal Grandmother No problems noted. Paternal Grandfather No problems noted. Brother No problems noted. Brother No problems noted. Brother No problems noted. Brother No problems noted. Sister No problems noted. Son No problems noted. Daughter No problems noted. Other Mental health disorder Social History Housing: Apartment Alcohol intake: never Patient Tobacco Use Status: Never used Tobacco Tobacco use type: Cigarette e-Cigarette/Vaping Use: Never Used service: No Current occupational status: employed Cognitive needs: No Hearing needs: No Vision needs: No Review of Systems Const All systems reviewed & are unremarkable except as noted in HPI and below Physical Exam Const General: cooperative, healthy appearing, comfortable, no acute distress, well developed, alert and awake Nutritional Appearance: overweight Orientation/consciousness: patient oriented x3 Limitations: no limitations HEENT Head: Yes normal to inspection, Yes normocephalic and Yes atraumatic Ears: hearing grossly normal bilaterally Eyes General: appearance normal, both eyes and all related structures Neck Neck: Yes normal visual inspection and Yes trachea midline Chest Chest palpation & inspection: normal inspection of the chest Resp Effort & Inspection: normal respiratory effort and able to speak in complete sentences Cardio Rate: regular rate GI Inspection: Yes normal to inspection General: Yes no CVA tenderness Back/Spine/Pelvis Back: no CVA tenderness Skin General skin exam: no rashes or lesions noted Neuro General: patient oriented x3 Extrem General: Yes normal to inspection Psych Appearance: grossly normal and well kempt Mental Status: mental status grossly normal Speech and movement: Normal speech and movement present and Clear speech present Affect: normal affect Attitude: cooperative Thought process: Normal thought process present Thought content: Normal thought content present Insight: Fair insight present (Psych) Judgement: Fair judgement present (Psych) Results AMB Urinalysis, Automated UA Leukoctes 0 Konstantin/uL Last Edit by [employer] on 11/23/24 13:21 UA Nitrite Last Edit by [employer] on 11/23/24 13:21 UA Urobilinogen 0.2 mg/dL Last Edit by [employer] on 11/23/24 13:21 UA Protein 15 mg/dL Last Edit by [employer] on 11/23/24 13:21 UA pH 6.0 Last Edit by [employer] on 11/23/24 13:21 UA Blood 0 Anup/uL Last Edit by [employer] on 11/23/24 13:21 UA Specific [place] 1.020 Last Edit by [employer] on 11/23/24 13:21 UA Ketone Last Edit by [employer] on 11/23/24 13:21 UA Bilirubin 0 mg/dL Last Edit by [employer] on 11/23/24 13:21 UA Glucose 0 mg/dL Last Edit by [employer] on 11/23/24 13:21 Results Reviewed Results Reviewed: Laboratory Last Values Urine pH (Auto) 6.0 11/23/24 12:20 Specific [place] (Auto) 1.020 11/23/24 12:20 Urine Protein (Auto) 15 mg/dL 11/23/24 12:20 Glucose (UA)(Auto) 0 mg/dL 11/23/24 12:20 Urine Blood (Auto) 0 Anup/uL 11/23/24 12:20 Urine Bilirubin (Auto) 0 mg/dL 11/23/24 12:20 Urine Urobilinogen (Auto) 0.2 mg/dL 11/23/24 12:20 Leukocyte Esterase (Auto) 0 Konstantin/uL 11/23/24 12:20 Assessment & Plan Assessment & Plan (1) Low testosterone: Code(s): R79.89 - Other specified abnormal findings of blood chemistry Category: Medical (2) Erectile dysfunction: Code(s): N52.9 - Male erectile dysfunction, unspecified Category: Medical Plan In office urinalysis results reviewed with the patient today; as noted above. Recent hypogonadism labs reviewed with the patient today; as noted above. Will continue with surveillance monitoring at this time. We discussed lifestyle modifications to assist with erectile dysfunction as well as overall health and well-being. He currently denies any bothersome urinary issues. He reports be happy with current voiding parameters. Follow-up in 3 months with labs to be completed prior; or sooner with any issues, concerns, and or questions. Orders: Orders Lutenizing Hormone 3 Months R7 - Other specified abnormal findings of blood chemistry Testosterone, Free/Total 3 Months R7 - Other specified abnormal findings of blood chemistry AMB Urinalysis Automated Today Z13.9 - Encounter for screening, unspecified Patient Instructions: The patient had an opportunity to ask questions regarding the treatment plan. All questions were answered. Physical exam, labs, and imaging were discussed and reviewed in detail. As well as risks, benefits, and discussion of treatment choices. No major barriers to understanding were identified. The patient expres sed understanding and agreement with the above treatment plan. The patient was made aware they should contact our office by phone for worsening of their current condition, the appearance of new symptoms, or with any questions or concerns. Compliance is encouraged with any medications and follow up testing that is ordered. It is a privilege to be allowed the opportunity to participate in? your urological care.? Again, if you have any questions or concerns If you have any questions or concerns please do not hesitate to contact me. The office is [phone]. This note is constructed using voice recognition software. While every effort has been made to ensure accuracy medical transcription radiology errors may have been included. Yours sincerely, PRAVEEN Reyna Coding Level of Care Code Est Pt Level 3 (75578) Diagnoses Low testosterone R79.89 Erectile dysfunction N52.9
--- OUTSIDE RECORDS SUMMARY | 2024-11-23 12:59 | XMS_ITS | Clinical Summary ---
Author Organization [facility] ity Address [address] [place] [address] Care Team Providers Care Station Agent Name Role Phone Idania Pritchett MD Primary Care Provider [phone] Social History Tobacco Use Types Packs/Day Years Used Date Smoking Tobacco: Never Assessed Sex and Gender Information Value Date Recorded Sex Assigned at Not on file Legal Sex Male 8:01 PM EDT Gender Identity Not on file Sexual Orientation Not on file Plan of Treatment Upcoming Encounters Date Type Department Care Team ([facility] st Contact Info) Description 04/27/2025 10:45 AM EDT Office Visit Bariatric Surgery - [place] [address] [place] [phone] Eli Jones MD [address] [facility] [address] [place] [address] Health Maintenance Due Date Last Done Comments [...] patient's age to complete this topic Insurance [facility] [place] [address] Care Teams Station Agent Relationship Specialty Start Date End Date Idania Pritchett MD [address] [place] [phone] PCP - General Internal Medicine 09/28/24
== END 2024-11-23 12:05 | disposition home or self-care (01) ==
LOC: HO.HUSH 11:20
PROVIDERS: PCP Internal Medicine; Visit Provider Nurse Practitioner Family
DX: R79.89 Other specified abnormal findings of blood chemistry (principal); N52.9 Male erectile dysfunction, unspecified; Z13.9 Encounter for screening, unspecified
CPT/HCPCS: 99213

== ENCOUNTER → 2024-11-23 11:20 | Outpatient (BNVA) | payer OTHER, SELFPAY | PROVIDERS: PCP Internal Medicine; Visit Provider Nurse Practitioner Family | DX: R79.89 Other specified abnormal findings of blood chemistry (principal); N52.9 Male erectile dysfunction, unspecified | CPT/HCPCS: 81003; 99212 ==

== ENCOUNTER 2024-12-16 09:49 | Outpatient (AMB) | payer OTHER, SELFPAY ==
[2024-12-16 09:53] VITALS: BP 128/68; PULSE 81; BMI 37.6
--- NOTE | 2024-12-16 09:53 | MHC.OFFVIS ---
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 RXN - OCCURED CHILD simvastatin Adverse Reaction (Uncoded 11/23/24 12:08) dry mouth Medication List - Last Reconciled 12/16/24 by Fabiano Ewing MD cyclobenzaprine 10 mg PO BID PRN gemfibrozil 600 mg PO BID 90 days lidocaine 5% 1 patch topical DAILY PRN HPI Comments Details: Thank you for referring Devin in cardiology consultation today for management of hyperlipidemia. He is a pleasant 39-year-old male with longstanding history of hyperlipidemia. He had done very well for long time and was on atorvastatin therapy. That worked very well for him but then cause the rise in his liver enzymes to twice a baseline value and this was stopped. He also had developed mouth ulcers related to simvastatin therapy and that had to be stopped. He comes today after noticing elevated lipid panel with mixed hyperlipidemia with significant elevated total cholesterol as well as triglycerides consistent with familiar mixed hyperlipidemia syndrome. Patient has no cardiac symptoms. He is active although does not exercise on a regular basis. He is also looking to participate in weight loss program has not been able to lose much weight. He works many hours a day and says that he is very busy with his working can not find time to exercise. 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 Patient was started on gemfibrozil recently. He is tolerating that well although this is not an ideal regimen. He has never had any cardiac or vascular events. No family history of significant premature coronary artery disease although he says that high cholesterol runs on his mother's side. He denies smoking or significant alcohol use. Denies any other medical problems including high blood pressure diabetes. He is to undergo cervical spine surgery in near future for cervical radiculopathy [facility] Medical History Testicular cyst Lipid disorder Family History Father Smoker ETOH abuse History of splenectomy Substance use disorder Mother Smoker Maternal Grandmother No problems noted. Maternal Grandfather HTN (hypertension) Diabetes mellitus Paternal Grandmother No problems noted. Paternal Grandfather No problems noted. Brother No problems noted. Brother No problems noted. Brother No problems noted. Brother No problems noted. Sister No problems noted. Son No problems noted. Daughter No problems noted. Other Mental health disorder Social History Housing: Apartment Alcohol intake: never Patient Tobacco Use Status: Never used Tobacco Tobacco use type: Cigarette e-Cigarette/Vaping Use: Never Used service: No Current occupational status: employed Cognitive needs: No Hearing needs: No Vision needs: No Review of Systems Const Denies weakness ENT Denies dizziness Card Denies chest pain, Denies chest pain with activity, Denies syncope, Denies rapid heart rate, Denies pedal edema, Denies edema, Denies leg edema, Denies lightheadedness, Denies palpitations, Denies dyspnea, Denies dyspnea on exertion and Denies orthopnea Resp Denies cough, Denies dyspnea and Denies dyspnea on exertion GI Denies hematochezia and Denies change in stool character Musc Denies abnormal gait, Denies muscle cramps, Denies muscle weakness, Denies numbness, Denies radiating pain into limb and Denies tingling Neuro Denies abnormal gait, Denies dizziness, Denies syncope, Denies numbness, Denies tingling and Denies weakness Endo Denies palpitations Physical Exam Vital Signs: Last Vital Signs Pulse 81 12/16/24 09:53 BP 128/68 12/16/24 09:53 BMI result Body Mass Index 37.6 Const General: cooperative, comfortable, no acute distress, well developed, alert and awake Nutritional Appearance: well nourished and obese Orientation/consciousness: patient oriented x3 Limitations: no limitations HEENT Head: Yes normocephalic and Yes atraumatic Neck Neck: Yes trachea midline, Yes supple and Yes no JVD Resp Effort & Inspection: normal respiratory effort Auscultation: clear to auscultation bilaterally Cardio Jugular venous distension: no JVD Palpation: normal PMI Rate: regular rate Rhythm: regular rhythm Heart sounds: S1 normal heart sound present, S2 normal heart sound present, no click, no gallops and no murmurs GI Auscultation: normal bowel sounds Skin General skin exam: no rashes or lesions noted Neuro General: patient oriented x3 and no focal motor deficits Extrem General: Yes no clubbing, cyanosis or edema Psych Appearance: grossly normal Office Procedures EKG Details: EKG shows normal sinus rhythm normal EKG 55206-[id number], Complete Assessment & Plan Assessment & Plan (1) Hyperlipidemia, mixed: Code(s): E78.2 - Mixed hyperlipidemia Category: Medical Plan: Severe mixed hyperlipidemia in this young man with risk factor of obesity. Overall he was no current cardiovascular symptoms. No further cardiovascular testing is indicated at this point time although requires modifications lipid panel to improve his long-term atherosclerotic as well as cardiovascular outcomes. This was discussed with him. General fibrosis old generation fibrate is not the greatest therapy for his overall lipid management. At this point time I would switch his gemfibrozil therapy to Vascepa 2 g b.i.d. to target both triglycerides as well as LDL. This was discussed with him. We discussed about potentially doing coronary calcium score to assess for presence of coronary atherosclerosis that require more intense management of his lipid. He is agreeable. Will follow up with lipid parameters in 3 months on new therapy along with CRP as well as apolipoprotein B as well as lipoprotein a. Levels to further guide therapy. He would benefit from weight reduction therapy. Have taken the liberty to refer him for dietary consultation also refer him to bariatric for which she is interested. Follow up in the clinic in 4 months time, sooner p.r.n.. Thank you for allowing me to partake in his care Medications: Changed From cyclobenzaprine No driving while taking this medication, do not take with alcohol or other [employer] depressants. 10 mg PO BID 60 tabs 2RF To cyclobenzaprine No driving while taking this medication, do not take with alcohol or other [employer] depressants. 10 mg PO BID PRN Coding Level of Care Code New Pt Level 4 (28896) Complex EM visit Add On G2211 Diagnoses Hyperlipidemia, mixed E78.2 CPT Codes EKG - CPT: 39044-[id number], Complete ([id number])
--- OUTSIDE RECORDS SUMMARY | 2024-12-16 11:16 | XMS_ITS | Clinical Summary ---
Author Organization [facility] ity Address [address] [place] [address] Care Team Providers Care Manager It Training Name Role Phone Idania Pritchett MD Primary Care Provider [phone] Social History Tobacco Use Types Packs/Day Years Used Date Smoking Tobacco: Never Assessed Sex and Gender Information Value Date Recorded Sex Assigned at Not on file Legal Sex Male 8:01 PM EDT Gender Identity Not on file Sexual Orientation Not on file Plan of Treatment Upcoming Encounters Date Type Department Care Team ([facility] st Contact Info) Description 04/27/2025 10:45 AM EDT Office Visit Bariatric Surgery - [place] [address] [place] [phone] Eli Jones MD [address] [facility] [address] [place] [address] Health Maintenance Due Date Last Done Comments DTaP,Tdap,and Td Vaccines (1 - Tdap) 2004 Hepatitis B Vaccines (1 of 3 - 19+ 3-dose series) 2004 COVID-19 Vaccine ( - 2023-2 5 season) 2024 Cholesterol Screening (Lipid Panel) 06/26/2024 Depression Screening 06/26/2024 HIV Screening 06/26/2024 Hepatitis C Screening 06/26/2024 Social Influencers of Health Screening 06/26/2024 Influenza Vaccine (Season Ended) 2025 HIB Vaccines Aged Out No longer eligi [...] age to complete this topic Meningococcal B Vaccine Aged Out No l onger eligible based on patient's age to complete [...] patient's age to complete this topic Insurance [facility] [employer] Care Teams Manager It Training Relationship Specialty Start Date End Date Idania Pritchett MD [address] [place] [phone] PCP - General Internal Medicine 09/28/24
== END 2024-12-16 10:23 | disposition home or self-care (01) ==
LOC: HO.HCS 09:50
PROVIDERS: PCP Internal Medicine; Visit Provider Internal Medicine Cardiovascular Disease
DX: E78.2 Mixed hyperlipidemia (principal)
CPT/HCPCS: 93010; 99204; G2211

== ENCOUNTER → 2024-12-16 09:49 | Outpatient (BNVA) | payer OTHER, SELFPAY | PROVIDERS: PCP Internal Medicine; Visit Provider Internal Medicine Cardiovascular Disease | DX: E78.2 Mixed hyperlipidemia (principal) | CPT/HCPCS: 93005; 99202 ==

== ENCOUNTER 2024-12-25 08:12 | Outpatient (AMB) | payer OTHER, SELFPAY ==
[2024-12-25 08:16] VITALS: BP 128/80; PULSE 72; O2SAT 98; BMI 38.2
--- NOTE | 2024-12-25 08:16 | MHC.PC.OV ---
Vital Signs 12/25/24 08:16 Height 5 ft 7 in Weight 244 lb BMI 38.2 BP 128/80 Blood Pressure Location Lt brachial Position Sitting Pulse 72 Pulse Source Pulse Oximeter Pulse Oximetry (%) 98 Oxygen Delivery Method Room Air Intake Visit Reasons: Annual PE Allergies penicillin V Allergy (Unknown, Verified 12/25/24 08:16) unknown - childhood reaction simvastatin Adverse Reaction (Intermediate, Verified 12/25/24 09:48) dry mouth/sores on tongue Medication List - Last Reconciled 12/25/24 by Idania Pritchett MD cyclobenzaprine 10 mg PO BID PRN icosapent ethyl (Vascepa) 2 grams (2 x 1 gram) PO BID lidocaine 5% 1 patch topical DAILY PRN Tobacco use date assessed: 12/25/24 Dental Screening Dental Screen Date: 10/16/24 HPI Annual PE HPI Details History of Present Illness - The patient is a 39 year old male presenting for a physical exam. - The patient has a history of hyperlipidemia, for which he was prescribed Vascepa by his financial services agent. His health insurance denied coverage for the medication, prompting a plan to conduct additional labs ordered by the financial services agent to resubmit for approval. The patient was advised to stop taking Gemfibrozil. - The patient is scheduled for upcoming surgery addressing cervical radiculopathy, with pain localized to the right side but now centralized. - The patient reports a past issue of erectile dysfunction associated with testosterone replacement therapy, which was subsequently stopped. By urologist - The patient has an appointment for urological evaluation through telehealth planned for early January to assess testosterone levels. - The patient is aware of upcoming labs related to his cardiological care, which will be ordered by the financial services agent. Medications - Vascepa, prescribed for hyperlipidemia (patient unable to obtain due to insurance denial) - Gemfibrozil, previously used for hyperlipidemia, discontinued - Testosterone replacement, previously used, discontinued due to erectile dysfunction Patient Instructions - Follow up with your specialists, including attending scheduled appointments with urology and surgery. - Use 1% hydrocortisone cream at night for skin peeling if needed. - Aim to maintain a healthy diet and lifestyle. - try to lose weight BMI is 38.2 Review of Systems - General: No fever no chills - Neurological: No headaches no dizziness - Ear nose throat: No sore throat no hearing difficulty no ear pain - Cardiovascular: No syncope, no chest pain, no palpitations - Gastrointestinal: No nausea vomiting or diarrhea - Endocrine: No polyuria polydipsia no heat intolerance - Genitourinary: No dysuria - Skin: No new complaints Physical Exam General: Cooperative, healthy appearing, comfortable, no acute distress Orientation: Patient oriented x3 Head: Normal to inspection Ears: Within normal limit visually Nose: Normal external nose present Face and sinus: Normal facial exam Eyes: Appearance normal, extraocular movement intact pupils reactive Neck: Normal visual inspection and supple, upcoming surgery on the right side due to cervical radiculitis Respiratory: Normal respiratory effort and able to speak in complete sentences. Clear to auscultation, no stridor Cardiovascular: S1 and S2, regular in rate and rhythm GI: Normal to inspection. Soft to palpation and nontender Skin: Turgor normal, no acute findings, slight peeling noticed, left eye brow advised to use 1% hydrocortisone Neuro: Patient oriented x3, motor sensory intact, balance intact, tandem pass Extremities: Normal to inspection [facility] Medical History Cervical radiculopathy Testicular cyst Lipid disorder Surgical History History of testicular surgery Family History Father Smoker ETOH abuse History of splenectomy Substance use disorder Mother Smoker Maternal Grandmother No problems noted. Maternal Grandfather HTN (hypertension) Diabetes mellitus Paternal Grandmother No problems noted. Paternal Grandfather No problems noted. Brother No problems noted. Brother No problems noted. Brother No problems noted. Brother No problems noted. Sister No problems noted. Son No problems noted. Daughter No problems noted. Other Mental health disorder Social History Housing: Apartment Alcohol intake: never Patient Tobacco Use Status: Never used Tobacco Tobacco use type: Cigarette e-Cigarette/Vaping Use: Never Used service: No Current occupational status: employed Cognitive needs: No Hearing needs: No Vision needs: No Questionnaire PHQ-9 Over the last 2 weeks, how often have you been bothered by any of the following problems? 1. Little interest or pleasure in doing things: not at all 2. Feeling down, depressed, or hopeless: not at all 3. Trouble falling or staying asleep, or sleeping too much: not at all 4. Feeling tired or having little energy: not at all 5. Poor appetite or overeating: not at all 6. Feeling bad about yourself - or that you are a failure or have let yourself or your family down: not at all 7. Trouble concentrating on things, such as reading the newspaper or watching television: not at all 8. Moving or speaking so slowly that other people could have noticed. Or the opposite - being so fidgety or restless that you have been moving around a lot more than usual: not at all 9. Thoughts that you would be better off or of hurting yourself in some way: not at all Total score: 0 Depression Screening Interpretation: Negative Depression Screening Done: Yes 11168 - PHQ-9 Billing: Yes Source: Developed by Drs. Stevan Cabello, Jayleen Maldonado, Giovany Khan and colleagues, with an educational jim from [employer]. Thrive Questionnaire Date Thrive assessed: 12/25/24 I am a: Patient What is your living situation today?: I have a steady place to live Within the past 12 months, did the food you bought not last and you didn't have the money to get more?: Never true Within the past 12 months, did you worry whether your food would run out before you got money to buy more?: Never true Do you have trouble paying for medicines?: No Do you have trouble getting transportation to medical appointments?: No Do you have trouble paying your heating and electricity bill?: No Do you have trouble taking care of your child, family member or friend?: No Do you have trouble with day-to-day activities such as bathing, preparing meals, shopping, managing finances, etc.?: No Are you currently unemployed and looking for a job?: No Are you interested in more education?: No Please select the resources that you would like help with: None Currently or been in a relationship where the following occur: I choose not to answer THRIVE Score: 0 AUDIT C Alcohol Use Questionnaire (AUDIT-C) 1. How often do you have a drink containing alcohol?: Never 3. How often do you have six or more drinks on one occasion?: Never Total Score: 0 Score Reviewed/Action Taken: Yes CARMELINA-7 AMB Questionnaire CARMELINA-7 Date CARMELINA - 7 assessed: 12/25/24 Feeling nervous, anxious, or on edge: 0 = Not at all Not being able to stop or control worryin = Not at all Worrying too much about different things: 0 = Not at all Trouble relaxin = Not at all Being so restless that it is hard to sit still: 0 = Not at all Becoming easily annoyed or irritable: 0 = Not at all Feeling afraid as if something awful might happen: 0 = Not at all Total CARMELINA-7 score (0-4 normal; 5-9 mild; 10-14 moderate; 15-21 severe): 0 Source: Developed by Drs. Stevan Cabello, Jayleen Maldonado, Giovany Khan and colleagues, with an educational jim from [employer]. CARMELINA-7 Assessment Billing CARMELINA-7 Assessment Tool: CARMELINA-7 Assessment 79638 Physical exam (Primary Care) Vital Signs: Last Vital Signs Pulse 72 12/25/24 08:16 BP 128/80 12/25/24 08:16 Pulse Ox 98 12/25/24 08:16 Oxygen Delivery Method Room Air 12/25/24 08:16 BMI result Body Mass Index 38.2 Tobacco/Smoking Status: Tobacco use Status Tobacco use date assessed 12/25/24 12/25/24 08:20 Patient Tobacco Use Status Never used Tobacco 12/25/24 08:20 Tobacco use type Cigarette 12/25/24 08:20 e-Cigarette/Vaping Use Never Used 12/25/24 08:20 PHQ-9: PHQ-9 Score PHQ-9: Total score 0 12/25/24 08:37 Depression Screening Interpretation: Negative Thrive Assessment: Date of Thrive Assessment Date Thrive assessed 12/25/24 12/25/24 08:20 Currently or been in a relationship where the following occur: I choose not to answer Coding Level of Care Code Est Pt Level 3 (25552) Est Pt Prev Care 18-39y(58091) Diagnoses Encounter for general adult medical examination with abnormal findings Z00.01 Lipid disorder E78.9 Cervical paraspinal muscle spasm M62.838 Cervical radiculitis M54.12 LFT elevation R79.89 Class 2 severe obesity due to excess calories with serious comorbidity and body mass index (BMI) of 39.0 to 39.9 in adult E66.812; E66.01; Z68.39 Obesity classification: adult class 2 (BMI 35 - 39.9) Serious obesity comorbidity presence: with serious comorbidity Body mass index: BMI 39.0-39.9 Low testosterone R79.89 Facial rash R21 Additional Codes CARMELINA-7 Assessment Billing - CARMELINA-7 Assessment Tool: CARMELINA-7 Assessment 35595 ([id number]) PHQ-9 - 75983 - PHQ-9 Billing: Yes ([id number]) Assessment & Plan Assessment & Plan (1) Encounter for general adult medical examination with abnormal findings: Code(s): Z00.01 - Encounter for general adult medical examination with abnormal findings (2) Lipid disorder: Comment: gemfibrozil d/c by Dr. Ewing & Vascepa prescribed-has not yet been approved by insurance Code(s): E78.9 - Disorder of lipoprotein metabolism, unspecified Category: Medical (3) Cervical paraspinal muscle spasm: Code(s): M62.838 - Other muscle spasm Category: Medical (4) Cervical radiculitis: Code(s): M54.12 - Radiculopathy, cervical region Category: Medical (5) LFT elevation: Code(s): R79.89 - Other specified abnormal findings of blood chemistry Category: Medical (6) Obesity due to excess calories: Code(s): E66.09 - Other obesity due to excess calories Category: Medical Qualifiers: Obesity classification: adult class 2 (BMI 35 - 39.9) Serious obesity comorbidity presence: with serious comorbidity Body mass index: BMI 39.0-39.9 Qualified Code(s): E66.812 - Obesity, class 2; E66.01 - Morbid (severe) obesity due to excess calories; Z68.39 - Body mass index [BMI] 39.0-39.9, adult (7) Low testosterone: Code(s): R79.89 - Other specified abnormal findings of blood chemistry Category: Medical (8) Facial rash: Code(s): R21 - Rash and other nonspecific skin eruption Plan History of Present Illness - The patient is a 39 year old male presenting for a physical exam. - The patient has a history of hyperlipidemia, for which he was prescribed Vascepa by his financial services agent. His health insurance denied coverage for the medication, prompting a plan to conduct additional labs ordered by the financial services agent to resubmit for approval. The patient was advised to stop taking Gemfibrozil. - The patient is scheduled for upcoming surgery addressing cervical radiculopathy, with pain localized to the right side but now centralized. - The patient reports a past issue of erectile dysfunction associated with testosterone replacement therapy, which was subsequently stopped. By urologist - The patient has an appointment for urological evaluation through telehealth planned for early January to assess testosterone levels. - The patient is aware of upcoming labs related to his cardiological care, which will be ordered by the financial services agent. Medications - Vascepa, prescribed for hyperlipidemia (patient unable to obtain due to insurance denial) - Gemfibrozil, previously used for hyperlipidemia, discontinued - Testosterone replacement, previously used, discontinued due to erectile dysfunction Patient Instructions - Follow up with your specialists, including attending scheduled appointments with urology and surgery. - Use 1% hydrocortisone cream at night for skin peeling if needed. - Aim to maintain a healthy diet and lifestyle. - try to lose weight BMI is 38.2
--- OUTSIDE RECORDS SUMMARY | 2024-12-25 08:21 | XMS_ITS | Clinical Summary ---
Author Organization [facility] ity Address [address] [place] [address] Care Team Providers Care Flaker Operator Name Role Phone Idnaia Pritchett MD Primary Care Provider [phone] Social History Tobacco Use Types Packs/Day Years [...] AM EDT Office Visit Bariatric Surgery - [place] [address] [place] [phone] Eli Jones MD [address] [facility] [facility] [address] [place] [address] Health Maintenance Due Date Last Done Comments [...] patient's age to complete this topic Insurance [facility] Care Teams Flaker Operator Relationship Specialty Start Date End Date Idania Pritchett MD [address] [place] [phone] PCP - General Internal Medicine 09/28/24
== END 2024-12-25 08:38 | disposition home or self-care (01) ==
LOC: HO.HMCC 08:12
PROVIDERS: PCP Internal Medicine; Visit Provider Internal Medicine
DX: Z00.01 Encounter for general adult medical examination with abnormal findings (principal); E78.9 Disorder of lipoprotein metabolism, unspecified; Z68.39 Body mass index [BMI] 39.0-39.9, adult; E66.01 Morbid (severe) obesity due to excess calories; M62.838 Other muscle spasm; M54.12 Radiculopathy, cervical region; R79.89 Other specified abnormal findings of blood chemistry; R21 Rash and other nonspecific skin eruption

== ENCOUNTER → 2024-12-25 08:12 | Outpatient (BNVA) | payer OTHER, SELFPAY | PROVIDERS: PCP Internal Medicine; Visit Provider Internal Medicine | DX: Z00.01 Encounter for general adult medical examination with abnormal findings (principal); E78.9 Disorder of lipoprotein metabolism, unspecified; M62.838 Other muscle spasm; M54.12 Radiculopathy, cervical region; R79.89 Other specified abnormal findings of blood chemistry; E66.812 Obesity, class 2; E66.01 Morbid (severe) obesity due to excess calories; R21 Rash and other nonspecific skin eruption; Z68.39 Body mass index [BMI] 39.0-39.9, adult | CPT/HCPCS: 96127; 99395 ==

== ENCOUNTER 2025-01-09 06:58 | Outpatient (REF) | payer OTHER, SELFPAY ==
--- OUTSIDE RECORDS SUMMARY | 2025-01-09 07:02 | XMS_ITS | Clinical Summary ---
Author Organization [facility] ity Address [address] [place] [address] Care Team Providers Care Final Assembler Boat Name Role Phone Idania Pritchett MD Primary Care Provider [phone] Social History Tobacco Use Types Packs/Day Years Used Date Smoking Tobacco: Never Assessed Sex and Gender Information Value Date Recorded Sex Assigned at Not on file Legal Sex Male 8:01 PM EDT Gender Identity Not on file Sexual Orientation Not on file Plan of Treatment Upcoming Encounters Date Type Department Care Team ([facility] st Contact Info) Description 04/27/2025 10:45 AM EDT Office Visit Bariatric Surgery - [place] [address] [place] [phone] Eli Jones MD [address] [place] [address] Health Maintenance Due Date Last Done Comments [...] patient's age to complete this topic Insurance [facility] [employer] Care Teams Final Assembler Boat Relationship Specialty Start Date End Date Idania Pritchett MD [address] [place] [phone] PCP - General Internal Medicine 09/28/24
[2025-01-09 07:59] LABS: Cholesterol 319 mg/dL (<200); HDL Cholesterol 34 mg/dL (>40); LDL Cholesterol Calculated 227 mg/dL (<100); Triglycerides 292 mg/dL (<150)
[2025-01-11 02:34] LABS: Lutenizing Hormone 2.9 mIU/mL (1.5-9.3)
[2025-01-20 15:39] LABS: Testosterone, Free 87.1 pg/mL (35.0-155.0); Testosterone, Total 374 ng/dL (250-1100)
== END 2025-01-09 06:59 | disposition home or self-care (01) ==
LOC: HO.LAB 06:58
PROVIDERS: Absent Provider Nurse Practitioner Family; PCP Internal Medicine; Visit Provider Internal Medicine Cardiovascular Disease
DX: R79.89 Other specified abnormal findings of blood chemistry (principal); E78.2 Mixed hyperlipidemia
CPT/HCPCS: 36415; 80061; 83002; 84402; 84403

== ENCOUNTER → 2025-01-13 11:14 | Outpatient (BNVA) | payer OTHER, SELFPAY | PROVIDERS: PCP Internal Medicine; Visit Provider Physician Assistant Surgical ==

== ENCOUNTER 2025-01-14 05:43 | Day surgery (SDC) | payer OTHER, SELFPAY ==
--- OUTSIDE RECORDS SUMMARY | 2024-11-27 07:46 | XMS_ITS | Clinical Summary ---
Author Organization [facility] ity Address [address] [place] [address] Care Team Providers Care Sports Broadcasting Internship Name Role Phone Idania Pritchett MD Primary Care Provider [phone] Social History Tobacco Use Types Packs/Day Years Used Date Smoking Tobacco: Never Assessed Sex and Gender Information Value Date Recorded Sex Assigned at Not on file Legal Sex Male 8:01 PM EDT Gender Identity Not on file Sexual Orientation Not on file Plan of Treatment Upcoming Encounters Date Type Department Care Team (Late st Contact Info) Description 04/27/2025 10:45 AM EDT Office Visit Bariatric Surgery - [place] [address] [place] [phone] Eli Jones MD [address] [facility] [address] [place] [address] Health Maintenance Due Date Last Done Comments [...] patient's age to complete this topic Insurance [facility] PL[facility] Care Teams Sports Broadcasting Internship Relationship Specialty Start Date End Date Idania Pritchett MD [address] [place] [phone] PCP - General Internal Medicine 09/28/24
[2024-12-25 09:54] VITALS: BP 126/77; PULSE 78; RESP 20; O2SAT 98; BMI 38.4
[2025-01-14] VITALS (8 sets, daily range): BP systolic 92–128; BP diastolic 53–83; PULSE 84–105; RESP 16–18; TEMP 36.2–36.4; O2SAT 95–100; BMI 38.5
--- NOTE | ~2025-01-14 | FL_ITS ---
EXAMINATION: FL GUIDANCE ONLY HISTORY: c5-6 ACDF COMPARISON: None available. TECHNIQUE: Fluoroscopy time: X.5 seconds. Cumulative Dose: 0.9372 mGy. DAP: 0.3108 mGym2 Images: 2. FINDINGS: AP and lateral fluoroscopic spot films of the cervical spine demonstrate anterior cervical disc fusion at C5-6. FL/FL guidance in OR IMPRESSION: Fluoroscopy during procedure. Please see procedure report for additional information. Electronically signed by: Stevan Lares MD 01/14/2025 08:53 AM EDT
[2025-01-14] MEDS: Gabapentin 300 MG CAPSULE PO (06:26)
[2025-01-14] MEDS: methocarbamoL 750 MG TABLET PO (06:26)
[2025-01-14] MEDS: Lactated Ringers 1,000 ML 100 ML IVCONT (06:37)
[2025-01-14] MEDS: vancomycin/NS 2,000 MG/500 ML PLAST..BAG 250 MG IV (06:37)
--- NOTE | 2025-01-14 07:00 | MHC.SHP ---
Pre-Procedural Eval Section A - 24 Hr Update-Section A only Date of Service: 01/14/25 The patient is an INPATIENT: No Changes since office visit: No Cold of Flu in the past 2 weeks, No New Medical Problems, No Changes in Medication and No Patient answered all questions The patient has been examined within 24 hours of the surgical procedure. The History & Physical has been completed within 30 days and I have reviewed it.: No Section B - Complete if H&P > 30 days Chief Complaint: Radiculopathy, cervical region Allergies: Allergies Allergy/AdvReac Type Severity Reaction Status Date / Time penicillin V Allergy Unknown unknown - Verified 12/25/24 08:16 childhood reaction simvastatin AdvReac Intermediate dry Verified 12/25/24 09:48 mouth/sores on tongue Review of Systems Sugical H&P ROS: Negative: Constitution, Cardiovascular, Respiratory, Neurological, Psychiatric, Hem-Onc, Allergic/Immunologic, Gastrointestinal, Genitourinary, Musculoskeletal, Integumentary, Endocrine and Eyes/Ears/Nose/Throat Exam Surgical H&P Exam: Normal: HEENT, Normal: Heart, Normal: Lungs, Normal: Extremities, Normal: Abdomen, Normal: Skin and Normal: Neurological (awake, alert,oriented x 3 ) Plan Diagnosis/Plan: Unchanged C5-6 anterior cervical diskectomy and fusion Time Spent With Patient Time: Total time managing care of this patient today _6___ minutes.
--- NOTE | 2025-01-14 07:01 | P.DS_ITS ---
DS: Providers Provider Date of Service: 01/14/25 Date of discharge: 01/14/25 Primary care physician: Idania Pritchett MD Admitting clinician: Uzair Naranjo DS: Diagnosis Discharge Diagnosis (1) Cervical disc disorder: Status: Acute DS: Summary Time Attestation Discharge Coordination Time (in mins): 5 Quality: Safe Use of Opioids Does Pt have an Active Cancer Diagnosis on the Problem List?: No Quality: Stroke Does the patient have a stroke diagnosis?: No Physical Exam Vital Signs: Vital Signs: Last Vital Signs Temp 97.5 F 01/14/25 06:22 Pulse 98 01/14/25 06:22 Resp 16 01/14/25 06:22 BP 128/83 01/14/25 06:22 Pulse Ox 98 01/14/25 06:22 O2 Del Method Room Air 01/14/25 06:22 BMI result Body Mass Index 38.5 Discharge Plan Discharge Patient Disposition: Home, Self-Care Referrals: Idania Pritchett MD [Primary Care Provider] - 1 Week Discharge Medications: New oxycodone 5 mg tablet 5 mg PO Q4H PRN (Reason: pain) Qty: 20 0RF Rx Instructions: Partial Fill upon patient request. docusate sodium [Colace] 100 mg capsule 100 mg PO BID Qty: 20 0RF Continued lidocaine 5 % adhesive patch,medicated 1 patch topical DAILY PRN (Reason: pain) Qty: 30 3RF Rx Instructions: leave on most painful area for up to 12 hrs rosuvastatin 40 mg tablet 40 mg PO DAILY Qty: 30 5RF fenofibrate micronized 134 mg capsule 134 mg PO QPM Qty: 30 5RF cyclobenzaprine 10 mg tablet 10 mg PO BID PRN (Reason: Muscle Spasm) Rx Instructions: No driving while taking this medication, do not take with alcohol or other EXTENSION SERVICE AGENT depressants. icosapent ethyl [Vascepa] 1 gram capsule 2 g PO BID Qty: 120 3RF Discharge Orders: Discharge Order (Routine); Ordered 01/14/25 Ordered By: Baljinder Browning Diet: Advance to usual diet Activity on Discharge: As tolerated Activity Restrictions/Additional Instructions: After your spinal surgery we ask you to observe the following restrictions/guidelines: Activity: It is normal to feel some discomfort as you increase your activity, but that will improve with time. We ask you avoid heavy lifting or acitivities that cause pain. As a general rule, 8lbs is a safe limit for lifting right after surgery. Walk as much as you feel comfortable but not to exhaustion. You will feel extra tired the first few days after surgery. Stay well hydrated. It is OK to walk up and down stairs You may return to driving when you are off narcotics (such as vicodin, oxycodone, dilaudid, etc), and you are back to normal functional capacity. If you have any concerns please check with office before driving. Return to work is specific to each patient and each surgery, so please speak with your doctor/PA at first follow up. Please bring paperwork such as FMLA at that time if you need it filled out. Medications: For optimum pain control, it is best to start with a combination of 500 mg of Ty lenol every 4 hours with 600 mg of Motrin every 8 hours, and use narcotics as needed in between for breakthrough pain. We will give you a short supply of narcotics after surgery (usually one weeks w orth). If you need more please call the office but do not use more than prescribed. You will need to give our office 48 hours notice if you need narcotics refilled and we do not fill narcotics on weekends or evenings. If you are on a narcotic, it is a good idea to take a stool softener such as colace or senna to avoid constipation If you take blood thinner such as aspirin, Plavix, Coumadin, Effient, Eliquis etc for conditions such as Afib, DVT, Pulmonary embolus, coronary disease, stents etc please speak with your surgeon about specific details as to when you can resume these medications. You can resume NSAIDs on post op day 1 (eg: Motrin, Naproxen, etc). Follow up: Please call the office, , after surgery to arrange a 3 week follow up for wound check. Wound Care: You may remove your dressing on the first day after surgery. ?You may ?leave open to air. Please do not remove the steri strips underneath. they will fall off on their own in one week. IT IS NORMAL FOR THE WOUND TO OOZE OR BE BLOODY FOR A FEW DAYS AFTER SURGERY. ?IF THIS HAPPENS JUST PLACE NEW DRESSING OVER IT TO AVOID STAINING CLOTHES. You may shower on post op day # 1 We ask that you do not let the water soak the wound. If it does get wet, just towel dry lightly. Please do not scrub your incision or place any type of chemical/ointment on the wound. No tub baths, pools or jacuzzis for one month. If you have any leaking or redness from your wound, or fevers, please call office Print Language: Gibraltarian
--- NOTE | 2025-01-14 07:30 | P.CONAN_ITS ---
Documented by User: Leny Hawk NP 01/13/25 09:58 HPI - Anesthesia Eval Consult details Narrative: 39yo M for C5-6 Ant Cerv Discectomy w/ fusion PAT with Dr Perez 12/25/24 Follows [facility] [place]. No cardiac symptoms PMFSH Active Problems Active Problems: All Active Problems Hyperlipidemia, mixed (Acute) Erectile dysfunction (Acute) Cervical radiculopathy (Acute) Myofascial pain on right side (Acute) Thrush, oral (Acute) Cervical disc disorder (Acute) Low testosterone (Acute) Obesity due to excess calories (Acute) Fatigue (Acute) LFT elevation (Acute) Arm paresthesia, right (Acute) Cervical radiculitis (Acute) Strain of cervical portion of right trapezius muscle (Acute) Cervical paraspinal muscle spasm (Acute) Lipid disorder (Acute) Past Medical History Medical History (Updated 12/25/24 @ 09:52 by Michelle Bailey RN) Cervical radiculopathy Lipid disorder Family History Family History Father Smoker ETOH abuse History of splenectomy Substance use disorder Mother Smoker Maternal Grandmother No problems noted. Maternal Grandfather HTN (hypertension) Diabetes mellitus Paternal Grandmother No problems noted. Paternal Grandfather No problems noted. Brother No problems noted. Brother No problems noted. Brother No problems noted. Brother No problems noted. Sister No problems noted. Son No problems noted. Daughter No problems noted. Other Mental health disorder Surgical History Surgical History History of testicular surgery Social History Social History Housing: Apartment Are you a primary healthcare administration intern to a significant other at home: No Do you presently have visiting nurse or other home services: No Alcohol intake: never Patient Tobacco Use Status: Never used Tobacco Tobacco use type: Cigarette e-Cigarette/Vaping Use: Never Used Use of substances other than those prescribed or required for medical reasons: No Have you been hit, kicked, punched, or otherwise hurt by someone within the past year? If so, by whom?: No Spiritual Healthcare Practices: no Jehovah'S Witness Healthcare Practices: no Cultural Healthcare Practices: no Are you DNR?: No Advance Directives: No ( is primary contact) Advance Directives Information Provided: Yes (as abov enoted) Advance Directives on File: No Poor oral hygiene: No service: No Current occupational status: employed Cognitive needs: No Hearing needs: No Vision needs: No Meds Allergies Allergy/AdvReac Type Severity Reaction Status Date / Time penicillin V Allergy Unknown unknown - Verified 12/25/24 08:16 childhood reaction simvastatin AdvReac Intermediate dry Verified 12/25/24 09:48 mouth/sores on tongue Home Medications ?Medication ?Instructions ?Recorded ?Confirmed ?Last Taken ?Type cyclobenzaprine 10 mg tablet 10 mg PO BID PRN Muscle Spasm 12/16/24 12/25/24 Unknown History Exam Height,Weight and Vital Signs: Height 5 ft 7 in Weight 111.13 kg Last Vital Signs Pulse 78 12/25/24 09:54 Resp 20 12/25/24 09:54 BP 126/77 12/25/24 09:54 Pulse Ox 98 12/25/24 09:54 O2 Del Method Room Air 12/25/24 09:54 Pertinent Lab Results Pertinent Lab Results: Laboratory Tests 10/13/24 06:22 WBC 7.1 Hgb 15.2 Hct 46.1 Plt Count 263 Sodium 139 Potassium 3.7 Chloride 105 Carbon Dioxide 23 BUN 14 Creatinine 0.89 Narrative Narrative: EKG 11/2024 Details: EKG shows normal sinus rhythm normal EKG Assessment and Plan Assessment Anesthesia Assessment: Chart Reviewed Documented by User: Stephanie You DO 01/14/25 07:45 PMFSH Past Medical History Medical History (Updated 12/25/24 @ 09:52 by Michelle Bailey RN) Cervical radiculopathy Lipid disorder Family History Family History Father Smoker ETOH abuse History of splenectomy Substance use disorder Mother Smoker Maternal Grandmother No problems noted. Maternal Grandfather HTN (hypertension) Diabetes mellitus Paternal Grandmother No problems noted. Paternal Grandfather No problems noted. Brother No problems noted. Brother No problems noted. Brother No problems noted. Brother No problems noted. Sister No problems noted. Son No problems noted. Daughter No problems noted. Other Mental health disorder Family history of problems with anesthesia: No Surgical History Surgical History History of testicular surgery History of Problems with Anesthesia: No Social History Social History Housing: Apartment Are you a primary healthcare administration intern to a significant other at home: No Do you presently have visiting nurse or other home services: No Alcohol intake: never Patient Tobacco Use Status: Never used Tobacco Tobacco use type: Cigarette e-Cigarette/Vaping Use: Never Used Use of substances other than those prescribed or required for medical reasons: No Have you been hit, kicked, punched, or otherwise hurt by someone within the past year? If so, by whom?: No Spiritual Healthcare Practices: no Jehovah'S Witness Healthcare Practices: no Cultural Healthcare Practices: no Are you DNR?: No Advance Directives: No ( is primary contact) Advance Directives Information Provided: Yes (as abov enoted) Advance Directives on File: No Poor oral hygiene: No service: No Current occupational status: employed Cognitive needs: No Hearing needs: No Vision needs: No Meds Allergies Allergy/AdvReac Type Severity Reaction Status Date / Time penicillin V Allergy Unknown unknown - Verified 12/25/24 08:16 childhood reaction simvastatin AdvReac Intermediate dry Verified 12/25/24 09:48 mouth/sores on tongue Home Medications ?Medication ?Instructions ?Recorded ?Confirmed ?Last Taken ?Type cyclobenzaprine 10 mg tablet 10 mg PO BID PRN Muscle Spasm 12/16/24 12/25/24 Unknown History Exam Exam Date and Time: 01/14/25 0728 Height,Weight and Vital Signs: Height 5 ft 7 in Weight 111.13 kg Last Vital Signs Pulse 78 12/25/24 09:54 Resp 20 12/25/24 09:54 BP 126/77 12/25/24 09:54 Pulse Ox 98 12/25/24 09:54 O2 Del Method Room Air 12/25/24 09:54 Vital Signs Pulse Rate 78 12/25/24 09:54 Respiratory Rate 20 12/25/24 09:54 Blood Pressure 126/77 12/25/24 09:54 Pulse Oximetry 98 12/25/24 09:54 Oxygen Delivery Method Room Air 12/25/24 09:54 Temperature 97.5 F 01/14/25 06:22 Pulse Rate 98 01/14/25 06:22 Respiratory Rate 16 01/14/25 06:22 Blood Pressure 128/83 01/14/25 06:22 Pulse Oximetry 98 01/14/25 06:22 Oxygen Delivery Method Room Air 01/14/25 06:22 Airway Mallampati Class: I TM Dist: <=3cm Neck ROM: Limited Loose/Missing/Broken Teeth: No (patient denies any loose or broken teeth) Heart: S1S2 Lungs: CTAB Assessment and Plan Assessment Anesthesia Assessment: Anesthesia Plan Discussed and Chart Reviewed Final Anesthetic Review Family History of Problems with Anesthesia: No History of Problems with Anesthesia: No NPO: Yes ASA Class: II Final Preanesthetic Review: No Changes in Pt Med Stat, Meds/Allgs Chart Reviewed, Consent Obtained/Reviewed and Anes Risks/Benef Reviewed Patient Risk: Low Procedure Risk: Intermediate Anesthetic Plan Anesthetic Plan: GA and Agree w/ Assess. and Plan Disposition: Standard PACU
[2025-01-14] MEDS: Acetaminophen 1,000 MG/100 ML PIGGYBACK 400 MG IV (08:30)
--- NOTE | 2025-01-14 08:36 | P.OP_ITS ---
Operative Note Operative Note Date of Service: 01/14/25 Narrative: Preoperative Diagnosis: Cervical radiculopathy, right Procedure: C5-6 Anterior discectomy, arthrodesis and implantation cage ; C5-C6 anterior instrumentation ; local autograft; microscope Informed Consent was obtained for this operation. I have explained the nature, purpose and benefits of the operation. I have discussed the risks and benefit of the operation including possible complications or adverse events with p atient/family. Alternative(s) were discussed with the patient with their relative benefits and risks as well as the consequences of not accepting the operation were included in obtaining consent. Surgeon: HAYDEE BUTLER MD, PHD Procedure Assisted By: pasquale Page Description of Procedure: This 39-year-old male suffering from a right cervical radiculopathy due to a disc herniation C5-6 compressing the right C6 nerve root. He was offered an anterior diskectomy and fusion of the level. The procedure complications were explained. The patient was consented. The patient was brought to the operating room and endotracheally intubated. The patient was put in supine position with slight extension of the neck. Prep and drape was done followed by timeout. A mid cervical incision was made followed by opening of the platysma. The prevertebral fascia was reached following the natural planes while the physician geological survey field assistant provided manual retraction. The prevertebral fascia was opened to expose the disc space. A spinal needle was placed in the disk space to confirm the correct level with xray. The longus colli muscles were released bilaterally and a self retaining retractor was inserted. Two [place] pins were placed in the C5 and C6 vertebral bodies and distraction was give over the interspace. The discectomy was completed toward the posterior annulus of the disc. The microscope was brought in. The remainder of the discectomy was completed. The posterior ligament was opened and resected to expose the underlying dura. Osteophytes were resected from the body of C5 and C6 and saved for autograft. Bilateral foraminotomies were done, which include removal of the disc material from the right C6 foramen. A nerve hook could be passed into the foramen without resistance. The endplates were prepared after which a 6 mm cage filled with autograft was inserted into the disc space. A separate attached plate was locked down with 2 x 14 mm screws as anterior instrumentation. Final x-rays in AP and lateral projection showed a satisfactory position of the implant. The physician geological survey field assistant took over. The [place] pin was removed. Hemostasis was done. He closed the incision in 2 layers with a 3-0 Vicryl. Steri-Strips used to approximate incision. An OpSite with Tegaderm was used to cover the incision. All sponge and needle counts were correct. Patient was extubated and transported in stable is to recovery room. Anesthesia: General Estimated Blood Loss (ml): 10 Duration of Surgery: 45 minutes Postoperative Plan: Discharge home Complications: None
== END 2025-01-14 10:18 | disposition home or self-care (01) ==
PROVIDERS: PCP Internal Medicine; Visit Provider Neurological Surgery
PROC: (CPT 22551; principal; 2025-01-14 07:30)
DX: M50.122 Cervical disc disorder at C5-C6 level with radiculopathy (principal); R29.3 Abnormal posture; M54.6 Pain in thoracic spine; M79.631 Pain in right forearm; R20.0 Anesthesia of skin; E78.00 Pure hypercholesterolemia, unspecified; Z79.899 Other long term (current) drug therapy; Z88.0 Allergy status to penicillin; Z88.8 Allergy status to other drugs, medicaments and biological substances
CPT/HCPCS: 22551; 22853; 22845; 20936; C1713; C1889; J0131; J1171; J2003; J2250; J2371; J2704; J3010; J3370

== ENCOUNTER → 2025-01-14 05:43 | Outpatient (BNV) | payer OTHER, SELFPAY | PROVIDERS: PCP Internal Medicine; Visit Provider Neurological Surgery | DX: M54.12 Radiculopathy, cervical region (principal) | CPT/HCPCS: 20936; 22551; 22845; 22853 ==

== ENCOUNTER 2025-01-22 07:57 | Outpatient (AMB) | payer OTHER, SELFPAY ==
--- OUTSIDE RECORDS SUMMARY | 2025-01-22 07:58 | XMS_ITS | Clinical Summary ---
Author Organization [facility] ity Address [address] [place] [address] Care Team Providers Care Kit Planner Name Role Phone Idania Pritchett MD Primary Care Provider [phone] Social History Tobacco Use Types Packs/Day Years Used Date Smoking Tobacco: Never Assessed Sex and Gender Information Value Date Recorded Sex Assigned at Not on file Legal Sex Male 8:01 PM EDT Gender Identity Not on file Sexual Orientation Not on file Plan of Treatment Upcoming Encounters Date Type Department Care Team ([facility] st Contact Info) Description 04/27/2025 10:45 AM EDT Office Visit Bariatric Surgery - [place] [address] [place] [id number] Eli Jones MD [address] [facility] [address] [place] [address] Health Maintenance Due Date Last Done Comments [...] patient's age to complete this topic Insurance [facility] Care Teams Kit Planner Relationship Specialty Start Date End Date Idania Pritchett MD [address] [place] [id number] PCP - General Internal Medicine 09/28/24
--- NOTE | 2025-01-22 08:54 | MHC.OFFVISWM ---
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 BMI 38.2 Allergies penicillin V Allergy (Unknown, Verified 01/22/25 08:54) unknown - childhood reaction simvastatin Adverse Reaction (Intermediate, Verified 01/22/25 08:54) dry mouth/sores on tongue Medication List - Last Reconciled 01/22/25 by Kiran Man MD cyclobenzaprine 10 mg PO BID PRN docusate sodium (Colace) 100 mg PO BID fenofibrate micronized 134 mg PO QPM icosapent ethyl (Vascepa) 2 grams (2 x 1 gram) PO BID lidocaine 5% 1 patch topical DAILY PRN oxycodone 5 mg PO Q4H PRN rosuvastatin 40 mg PO DAILY HPI HPI 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 BMI 38.2: Details: Start time: 8.46am, End time: 9.31am ?I spent 40 minutes speaking with the patient on the phone plus an additional 5 minutes reviewing and updating records for a total of 45 minutes HPI Comments Details: Previous weight loss efforts: self diet and exercise Wakes up: 4.15am, Sleeps: 10pm Breakfast: 9am (yogurts, fruits, waffles, vietnamese toast) Lunch: 12.30pm (chicken with protein bars) Dinner: 5pm (rice, chicken, beef, pasta) Snacks: 11am (apple), 3-4pm (bars), 7pm (grapes, banana) Exercise: none Beverages: Coffee/tea: none, soda: none, juice: none, ETOH: none PFSH Medical History (Updated 01/22/25 @ 09:23 by Kiran Man MD) BMI 38.0-38.9,adult Obesity Cervical radiculopathy Lipid disorder Surgical History History of testicular surgery Family History Father Smoker ETOH abuse History of splenectomy Substance use disorder Mother Smoker Maternal Grandmother No problems noted. Maternal Grandfather HTN (hypertension) Diabetes mellitus Paternal Grandmother No problems noted. Paternal Grandfather No problems noted. Brother No problems noted. Brother No problems noted. Brother No problems noted. Brother No problems noted. Sister No problems noted. Son No problems noted. Daughter No problems noted. Other Mental health disorder Social History Housing: Apartment Are you a primary career coordinator to a significant other at home: No Do you presently have visiting nurse or other home services: No Alcohol intake: never Comment: COUNTS CORRECT Patient Tobacco Use Status: Never used Tobacco Tobacco use type: Cigarette e-Cigarette/Vaping Use: Never Used service: No Current occupational status: employed Cognitive needs: No Hearing needs: No Vision needs: No Telehealth Telehealth Telehealth Platform: Telephone Location of provider rendering services: practice address Location of patient: address on file Patient Identification confirmed using: Name, : Yes Telehealth method: voice only Patient verbally consented to treatment: Yes Patient verbally consented to billing insurance company: Yes Patient informed of any privacy concerns related to visit: Yes Minutes spent on Phone/Video with Pt.: 45 Assessment & Plan Assessment & Plan (1) Obesity: Code(s): E66.9 - Obesity, unspecified Category: Medical Qualifiers: Obesity type: due to excess calories Obesity classification: adult class 2 (BMI 35 - 39.9) Serious obesity comorbidity presence: with serious comorbidity Body mass index: BMI 38.0-38.9 Qualified Code(s): E66.812 - Obesity, class 2; E66.01 - Morbid (severe) obesity due to excess calories; Z68.38 - Body mass index [BMI] 38.0-38.9, adult Plan: 1. Start the Phentermine at 10am every day. We discussed the potential side-effects of the Phentermine such as irritability, dry mouth, difficulty sleeping, dizziness, numbness in feet and high blood pressure. I asked her to get a blood pressure monitor and measure the blood pressure daily in the morning and evening. He needs to send the blood pressure readings daily and to call the office for blood pressure over 140/80 and she understands that. 2. You will receive a link of our software traci to generate an individualized nutritional and exercise plan specific for you. Please send me a screenshot of the plans you will generate Meal to include lean meat (beef, fish, pork, turkey, chicken), or kyrgyz yogurt, or egg whites, or beans with a salad with olive oil and fruits (berries, pears, apples, kiwi). Avoid salt, breads, potatoes, rice, pasta, desserts. ?3. If you choose shakes, each shake would be drunk slowly, like coffee in a period of 2 hours. ?4. If you choose bars, cut each bar in 4 pieces and eat each piece in 30min ?to make each bar last 2 hours. ?5. I emphasized the importance of measuring accurately the food portion and measure it when serving the food in plate ?6. The meal portions include a specific number of forks of meat and salad. You always eat the meat portion but you can replace up to half of salad/vegetables portion with rice, potatoes or pasta, or a fruit ?if you like. The less you do it the better weight loss will be. ?7. One full-size fork is what it can be scooped on the fork without falling aside and not what can be bit with the fork. Use regular forks like those you find in a typical restaurant. ?8.? Please buy the body composition scale we discussed and send me weight measurements as soon as possible and then once a week. Always include your diet and exercise plan. 9. The best choice would be to purchase a stationary bike, elliptical or treadmill at home that can track calories. You can create and exercise plan with the [employer] traci. ?10.?Goal is to lose at least 1.5-2lbs per week ?11. Goal to lose at least 10% of your weight, which is about 23lbs. Minimum weight goal: 220lbs 12. Please follow the diet plan exactly without any change. If you don't like something about the plan or you feel hungry you need to communicate with me so I can help you revise the plan. You should not change the plan yourself. Medications: New phentermine must administer 30 minutes before or 1-2 hours after breakfast 37.5 mg PO DAILY 30 caps 0RF E66.01 - Morbid (severe) obesity due to excess calories, E66.812 - Obesity, class 2, Z68.38 - Body mass index [BMI] 38.0-38.9, adult
[2025-01-22 09:04] VITALS: BMI 38.1
== END 2025-01-22 09:32 | disposition home or self-care (01) ==
LOC: HO.HBS 07:57
PROVIDERS: PCP Internal Medicine; Visit Provider Surgery
DX: E66.812 Obesity, class 2 (principal); E66.01 Morbid (severe) obesity due to excess calories; Z68.38 Body mass index [BMI] 38.0-38.9, adult
CPT/HCPCS: 99204

== ENCOUNTER 2025-01-25 12:11 | Outpatient (AMB) | payer OTHER, SELFPAY ==
--- NOTE | 2025-01-25 12:11 | A.OFFVIS_ITS ---
Intake Visit Reasons: 2m/Testo Intake Note: Patient presents today for tele visit follow up on low testosterone and labs Testosterone: 374; Free Testosterone: 87.1; LH: 2.9 Urology Med: None Antibiotic Allergy: Penicillins Blood Thinner: None Industrial Cleaner Required: No Accompanied by: Self / Same As Patient Allergies penicillin V Allergy (Unknown, Verified 01/25/25 16:42) unknown - childhood reaction simvastatin Adverse Reaction (Intermediate, Verified 01/25/25 16:42) dry mouth/sores on tongue Medication List - Last Reconciled 01/25/25 by PRAVEEN Reyna cyclobenzaprine 10 mg PO BID PRN docusate sodium (Colace) 100 mg PO BID fenofibrate micronized 134 mg PO QPM lidocaine 5% 1 patch topical DAILY PRN oxycodone 5 mg PO Q4H PRN phentermine 37.5 mg PO DAILY rosuvastatin 40 mg PO DAILY tadalafil (Cialis) 5 mg PO DAILY 90 days HPI Comments Details: Devin is a very pleasant 39-year-old male patient of Dr. Pritchett. He has a past medical history of lipid disorder. He is being followed up on today via video telehealth for his borderline hypogonadism. Discussion with the patient today he discusses having had his recent surgical procedure for his cervical radiculopathy here at [facility] with our spine surgeon. He reports to be recovering well. Of note, patient had previously underwent stimulation testing with Clomid at which time recommendations were made for continuation of low-dose Clomid as testosterone and LH levels had improved however patient wished to proceed without medication. Recent labs were reviewed with the patient today as noted and trended below: PSA: 09/19 0., 11/17 0.3 Estradiol: 09/19 48, 11/17 66 FSH 09/19 1.2, FSH 3.9 LH 09/19 2.8, 11/17 5.6, 01/17 2.9 Prolactin 09/19 14.9, 11/17 9.2 Total testosterone 05/29 347, 09/19 293, 11/17 611, 01/17 374 Free testosterone 09/19 55.7, 11/17 107.5, 01/17 87.1 SHBG 09/19 19, 11-17 28 We discussed borderline low testosterone. We discussed further treatment options to include Clomid at lower dose 3 times per week verses trial of Cialis 5 mg daily versus surveillance monitoring. Risks and benefits of these interventions were discussed. Will trial low-dose Cialis and further assess labs. He otherwise denies any bothersome urinary issues. He denies urinary urgency, urinary frequency, incontinence, nocturia, hematuria, dysuria, foul smelling urine, changes to urinary stream, flank pain, fever, and or chills. He is happy with his current voiding parameters. He denies any previous recreational drug use. He denies any previous trauma however he does report previously having surgical intervention for right-sided testicular/scrotal cyst removal approximately 11 years ago. He denies any previous opioid and or steroid exposure. All questions were answered. He otherwise offers no other issues or concerns at this time. [facility] Medical History BMI 38.0-38.9,adult Obesity Cervical radiculopathy Lipid disorder Surgical History History of testicular surgery Family History Father Smoker ETOH abuse History of splenectomy Substance use disorder Mother Smoker Maternal Grandmother No problems noted. Maternal Grandfather HTN (hypertension) Diabetes mellitus Paternal Grandmother No problems noted. Paternal Grandfather No problems noted. Brother No problems noted. Brother No problems noted. Brother No problems noted. Brother No problems noted. Sister No problems noted. Son No problems noted. Daughter No problems noted. Other Mental health disorder Social History Housing: Apartment Are you a primary career development coordinator/teacher to a significant other at home: No Do you presently have visiting nurse or other home services: No Alcohol intake: never Comment: COUNTS CORRECT Patient Tobacco Use Status: Never used Tobacco Tobacco use type: Cigarette e-Cigarette/Vaping Use: Never Used service: No Current occupational status: employed Cognitive needs: No Hearing needs: No Vision needs: No Review of Systems Const All systems reviewed & are unremarkable except as noted in HPI and below Physical Exam Const General: cooperative, healthy appearing, comfortable, no acute distress, well developed, alert and awake Orientation/consciousness: patient oriented x3 Resp Effort & Inspection: normal respiratory effort and able to speak in complete sentences Neuro General: patient oriented x3 Psych Appearance: grossly normal and well kempt Speech and movement: Clear speech present Affect: normal affect Attitude: cooperative Thought process: Normal thought process present Thought content: Normal thought content present Insight: Fair insight present (Psych) Judgement: Fair judgement present (Psych) Telehealth Telehealth Telehealth Platform: [employer] Location of provider rendering services: practice address Location of patient: address on file Patient Identification confirmed using: Name, : Yes Telehealth method: video Patient verbally consented to treatment: Yes Patient verbally consented to billing insurance company: Yes Patient informed of any privacy concerns related to visit: Yes Minutes spent on Phone/Video with Pt.: 20 Assessment & Plan Assessment & Plan (1) Erectile dysfunction: Code(s): N52.9 - Male erectile dysfunction, unspecified Category: Medical (2) Low testosterone: Code(s): R79.89 - Other specified abnormal findings of blood chemistry Category: Medical Plan Recent labs were reviewed with the patient today; as noted above. We discussed further treatment options and risks and benefits of these treatment options All questions were answered. Start Cialis 5 mg daily as discussed and prescribed. He currently denies any bothersome urinary issues. Reports be happy with current voiding parameters. We discussed lifestyle modifications. Will obtain testosterone lab values in 3-6 months. Follow-up in 3-6 months with labs to be completed prior; or sooner with any issues, concerns, and or questions Orders: Orders Testosterone, Free/Total 3 Months N52.9 - Male erectile dysfunction, unspecified Medications: New tadalafil (Cialis) [id number] [facility] [id number] Member [id number] 5 mg PO DAILY 90 days 90 tabs 2RF Patient Instructions: The patient had an opportunity to ask questions regarding the treatment plan. All questions were answered. Physical exam, labs, and imaging were discussed and reviewed in detail. As well as risks, benefits, and discussion of treatment choices. No major barriers to understanding were identified. The patient expressed understanding and agreement with the above treatment plan. The patient was made aware they should contact our office by phone for worsening of their current condition, the appearance of new symptoms, or with any questions or concerns. Compliance is encouraged with any medications and follow up testing that is ordered. It is a privilege to be allowed the opportunity to participate in? your urological care.? Again, if you have any questions or concerns If you have any questions or concerns please do not hesitate to contact me. The office is [phone]. This note is constructed using voice recognition software. While every effort has been made to ensure accuracy cyber defense incident responder errors may have been included. Yours sincerely, PRAVEEN Reyna Coding Level of Care Code Tele Est Pt Level 4 (31169) Diagnoses Erectile dysfunction N52.9 Low testosterone R79.89
--- OUTSIDE RECORDS SUMMARY | 2025-01-25 13:17 | XMS_ITS | Clinical Summary ---
Author Organization [facility] ity Address [address] [place] [address] Care Team Providers Care Document Imaging Specialist Name Role Phone Idania Pritchett MD Primary Care Provider [phone] Social History Tobacco Use Types Packs/Day Years Used Date Smoking Tobacco: Never Assessed Sex and Gender Information Value Date Recorded Sex Assigned at Not on file Legal Sex Male 8:01 PM EDT Gender Identity Not on file Sexual Orientation Not on file Plan of Treatment Upcoming Encounters Date Type Department Care Team ([facility] st Contact Info) Description 04/27/2025 10:45 AM EDT Office Visit Bariatric Surgery - [place] [address] [place] [phone] Eli Jones MD [address] [facility] [address] [place] [address] Health Maintenance Due Date Last Done Comments [...] patient's age to complete this topic Insurance [facility] PLAN Care Teams Document Imaging Specialist Relationship Specialty Start Date End Date Idania Pritchett MD [address] [place] [phone] PCP - General Internal Medicine 09/28/24
== END 2025-01-25 14:19 | disposition home or self-care (01) ==
LOC: HO.HUSH 12:11
PROVIDERS: PCP Internal Medicine; Visit Provider Nurse Practitioner Family
DX: N52.9 Male erectile dysfunction, unspecified (principal); R79.89 Other specified abnormal findings of blood chemistry
CPT/HCPCS: 99214

== ENCOUNTER → 2025-01-25 12:11 | Outpatient (BNVA) | payer OTHER, SELFPAY | PROVIDERS: PCP Internal Medicine; Visit Provider Nurse Practitioner Family ==

== ENCOUNTER 2025-02-04 11:19 | Outpatient (AMB) | payer OTHER, SELFPAY ==
--- NOTE | 2025-02-04 11:41 | A.SPINEOV_ITS ---
Intake Visit Reasons: 1st post op Intake Note: Mr. Claire is here for his 1st post op. Certified Teacher Assistant Required: No Allergies penicillin V Allergy (Unknown, Verified 01/25/25 16:42) unknown - childhood reaction simvastatin Adverse Reaction (Intermediate, Verified 01/25/25 16:42) dry mouth/sores on tongue Assessment & Plan Assessment & Plan (1) Cervical radiculopathy: Code(s): M54.12 - Radiculopathy, cervical region Category: Medical Plan Procedure: C5-6 ACDF Devin is a pleasant 39-year-old male who comes in today for his 1st postoperative visit after having a C5-[address] Naranjo. To recap he was initially evaluated in clinic for posterior neck pain and shooting pains down his right arm. He reports that his shooting right-sided arm pain has completely resolved since the surgery. He also experiences no numbness on the right-hand side since his surgery. So he is very happy about that. Unfortunately, he is still experiencing quite a bit of posterior neck pain. He states that it feels like there is a pulling sensation in the back of his neck. We discussed the postoperative healing course, and I answered all questions that he had. No new neurological deficits. The patient ambulates well and rises from a seated position without difficulty. His anterior incision site is closed and well healing. I would like to follow up with Devin again in 6 weeks and obtain a set of x-rays for his 2nd postoperative visit. Jesús Naranjo MD,PhD [facility] Coding Level of Care Code Global (03643) Diagnoses Cervical radiculopathy M54.12
--- OUTSIDE RECORDS SUMMARY | 2025-02-04 13:20 | XMS_ITS | Clinical Summary ---
Author Organization [facility] ity Address [address] [place] [address] Care Team Providers Care Apprentice Painter Brush Name Role Phone Idania Pritchett MD Primary Care Provider [phone] Social History Tobacco Use Types Packs/Day Years [...] AM EDT Office Visit Bariatric Surgery - [place] [address] [place] [phone] Eli Jones MD [address] [facility] [address] [place] [address] Health Maintenance Due Date Last Done Comments [...] patient's age to complete this topic Insurance [facility] PLAN Care Teams Apprentice Painter Brush Relationship Specialty Start Date End Date Idania Pritchett MD [address] [place] [phone] PCP - General Internal Medicine 09/28/24
== END 2025-02-04 11:52 | disposition home or self-care (01) ==
LOC: HO.HNS 11:20
PROVIDERS: PCP Internal Medicine; Visit Provider Physician Assistant
DX: M54.12 Radiculopathy, cervical region (principal)
CPT/HCPCS: 99024

== ENCOUNTER → 2025-02-04 11:19 | Outpatient (BNVA) | payer OTHER, SELFPAY | PROVIDERS: PCP Internal Medicine; Visit Provider Physician Assistant | DX: M54.12 Radiculopathy, cervical region (principal) | CPT/HCPCS: 99212 ==

== ENCOUNTER 2025-02-08 08:14 | Outpatient (AMB) | payer OTHER, SELFPAY ==
[2025-02-08 08:17] VITALS: BP 122/90; PULSE 81; TEMP 36.7; O2SAT 98; BMI 36.8
--- NOTE | 2025-02-08 08:17 | MHC.OFFWIV ---
Intake Vital Signs 02/08/25 08:17 Height 5 ft 7 in Weight 235 lb BMI 36.8 BP 122/90 H Blood Pressure Location Lt brachial Position Sitting Pulse 81 Pulse Source Pulse Oximeter Temp 98.1 F Temp Source Oral Pulse Oximetry (%) 98 Oxygen Delivery Method Room Air Intake Visit Reasons: EP Stye inside LT eye Intake Note: Pt presents to the office today for c/o a stye inside of his left eye. Pt states he has had this for about 3 weeks. Patient Tobacco Use Status: Never used Tobacco Allergies penicillin V Allergy (Unknown, Verified 02/08/25 08:19) unknown - childhood reaction simvastatin Adverse Reaction (Intermediate, Verified 02/08/25 08:19) dry mouth/sores on tongue HPI HPI Comments History of Present Illness Details History - The patient is a 39-year-old male presenting with a sty on the left upper eyelid. - The sty has been present for approximately three weeks, with warm compresses applied without significant improvement. - Discomfort noted on the inside of the eyelid, with the white sty appearing to want to pop underneath. - Continued use of warm compresses, with concern for a possible bacterial infection. - No changes in vision or pain but it is occasionally uncomfortable. Physical Exam General: Cooperative, healthy appearing, comfortable, no acute distress and well developed Orientation: Patient oriented x3 Limitations: No limitations Head: Normal to inspection Ears: Hearing grossly normal bilaterally Nose: Normal External nose present Face and sinus: Normal facial exam Mouth: normal, moist oral mucosa Eyes: Appearance normal, both eyes and all related structures except for a sty on the left upper inner eyelid Neck: Normal visual inspection and Yes full ROM Respiratory: Normal respiratory effort and able to speak in complete sentences. Neuro: Patient oriented x3 Extremities: moving all extremities normally [facility] Medical History BMI 38.0-38.9,adult Obesity Cervical radiculopathy Lipid disorder Surgical History History of testicular surgery Family History Father Smoker ETOH abuse History of splenectomy Substance use disorder Mother Smoker Maternal Grandmother No problems noted. Maternal Grandfather HTN (hypertension) Diabetes mellitus Paternal Grandmother No problems noted. Paternal Grandfather No problems noted. Brother No problems noted. Brother No problems noted. Brother No problems noted. Brother No problems noted. Sister No problems noted. Son No problems noted. Daughter No problems noted. Other Mental health disorder Social History Housing: Apartment Are you a primary manager critical care unit to a significant other at home: No Do you presently have visiting nurse or other home services: No Alcohol intake: never Comment: COUNTS CORRECT Patient Tobacco Use Status: Never used Tobacco Tobacco use type: Cigarette e-Cigarette/Vaping Use: Never Used service: No Current occupational status: employed Cognitive needs: No Hearing needs: No Vision needs: No Review of Systems Const All systems reviewed & are unremarkable except as noted in HPI and below Physical Exam Vital Signs: Last Vital Signs Temp 98.1 F 02/08/25 08:17 Pulse 81 02/08/25 08:17 BP 122/90 H 02/08/25 08:17 Pulse Ox 98 02/08/25 08:17 Oxygen Delivery Method Room Air 02/08/25 08:17 BMI result Body Mass Index 36.8 Assessment & Plan Assessment & Plan (1) Hordeolum externum left upper eyelid: Code(s): H00.014 - Hordeolum externum left upper eyelid Plan: 1. Hordeolum (Sty) On The Left Upper Eyelid - Continue warm compresses to aid in resolution of the clogged duct. - Initiate erythromycin ophthalmic ointment application four times daily while awake to address potential bacterial infection. - Apply ointment to the inner eyelid to avoid corneal abrasion and potential vision blurriness. - Prescription sent to [facility] for patient convenience. Medications: New erythromycin Apply to left eye 4 times a day while awake 0.5 inches ophthalmic (eye) QID 3.5 grams 0RF Coding Level of Care Code Est Pt Level 3 (47640) Diagnoses Hordeolum externum left upper eyelid H00.014
== END 2025-02-08 09:04 | disposition home or self-care (01) ==
PROVIDERS: PCP Internal Medicine; Visit Provider Physician Assistant
DX: H00.014 Hordeolum externum left upper eyelid (principal)

== ENCOUNTER → 2025-02-08 08:14 | Outpatient (BNVA) | payer OTHER, SELFPAY | PROVIDERS: PCP Internal Medicine; Visit Provider Physician Assistant | DX: H00.014 Hordeolum externum left upper eyelid (principal) | CPT/HCPCS: 99212 ==

== ENCOUNTER 2025-03-11 10:22 | Outpatient (REF) | payer OTHER, SELFPAY ==
--- NOTE | ~2025-03-11 | XR_ITS ---
EXAMINATION: XR CERVICAL SPINE 4-5 VIEWS HISTORY: M54.12 - Radiculopathy, cervical region COMPARISON: Comparison is made with the prior examination dated 03/10/2024. FINDINGS: AP, and neutral, flexion, and extension lateral views of the cervical spine are submitted. Osseous mineralization is normal. The patient is status post anterior cervical disc fusion at C5-6. The fusion hardware is intact. Seven cervical vertebral bodies are identified maintaining normal height and alignment without evidence of fracture or subluxation. The intervertebral disc spaces are preserved. There is no abnormal motion with flexion or extension. There is no prevertebral soft tissue swelling. XR/XR cervical spine 4V IMPRESSION: Status post anterior cervical disc fusion at C5-6. There is no abnormal motion with flexion or extension. Electronically signed by: Stevan Lares MD 03/11/2025 12:46 PM EDT
--- OUTSIDE RECORDS SUMMARY | 2025-03-12 10:42 | XMS_ITS | Clinical Summary ---
Author Organization [facility] ity Address [address] [place] [address] Care Team Providers Care Generator Switchboard Operator Name Role Phone Idania Pritchett MD Primary Care Provider [phone] Social History Tobacco Use Types Packs/Day Years Used Date Smoking Tobacco: Never Assessed Sex and Gender Information Value Date Recorded Sex Assigned at Not on file Legal Sex Male 8:01 PM EDT Gender Identity Not on file Sexual Orientation Not on file Plan of Treatment Upcoming Encounters Date Type Department Care Team ([facility] st Contact Info) Description 04/27/2025 10:45 AM EDT Office Visit Bariatric Surgery - [place] [address] [place] [phone] lEi Jones MD [address] [facility] [address] [place] [address] Health Maintenance Due Date Last Done Comments [...] Insurance [facility] PLAN Care Teams Generator Switchboard Operator Relationship Specialty Start Date End Date Idania Pritchett MD [address] [place] [phone] PCP - General Internal Medicine 09/28/24
== END 2025-03-11 10:23 | disposition home or self-care (01) ==
LOC: HO.HOSX 10:22
PROVIDERS: Visit Provider Physician Assistant
DX: M54.12 Radiculopathy, cervical region (principal)
CPT/HCPCS: 72050; 99212

== ENCOUNTER 2025-03-11 10:36 | Outpatient (AMB) | payer OTHER, SELFPAY ==
--- NOTE | 2025-03-11 11:09 | HO.SPINEOV ---
Intake Visit Reasons: 2nd post op with Xrays Intake Note: Mr. Claire is here today for his 2nd post op with xrays. Court Recorder Required: No Allergies penicillin V Allergy (Unknown, Verified 03/11/25 11:10) unknown - childhood reaction simvastatin Adverse Reaction (Intermediate, Verified 03/11/25 11:10) dry mouth/sores on tongue Assessment & Plan Assessment & Plan (1) Cervicalgia: Code(s): M54.2 - Cervicalgia Category: Medical Plan Devin is a pleasant 39-year-old male who comes in today for a follow up appointment after having C5-[address] Naranjo a couple of months ago. Thankfully, he continues to report that his shooting radicular concerns prior to surgery have resolved. Unfortunately he still does have some difficulty swallowing very dense foods, and is continuing to have some posterior neck pain. However overall he seems satisfied with the surgery. 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 I believe this is completely reasonable given his willingness to return to work this soon after surgery. He reports that they are willing to accommodate whatever needs he has. We reviewed his x-ray images taken during this visit which shows stable placement of his surgical construct with no changes from fluoroscopy. No new neurological deficits. The patient ambulates well and rises from a seated position without difficulty. His anterior incision site is closed and well healed. There is no need for continued routine follow up with Devin, however if he calls the office and states that he would like to be seen again for physical therapy referral we may do this for him depending on how he does after returning to work. Jesús Naranjo MD,PhD [facility] Orders: Orders XR cervical spine 4V Today M54.12 - Radiculopathy, cervical region Coding Level of Care Code Global (91189) Diagnoses Cervicalgia M54.2
--- OUTSIDE RECORDS SUMMARY | 2025-03-11 11:10 | XMS_ITS | Clinical Summary ---
Author Organization [facility] ity Address [address] [place] [address] Care Team Providers Care Label Maker Name Role Phone Idania Pritchett MD Primary Care Provider [phone] Social History Tobacco Use Types Packs/Day Years Used Date Smoking Tobacco: Never Assessed Sex and Gender Information Value Date Recorded Sex Assigned at Not on file Legal Sex Male 8:01 PM EDT Gender Identity Not on file Sexual Orientation Not on file Plan of Treatment Upcoming Encounters Date Type Department Care Team ([facility] st Contact Info) Description 04/27/2025 10:45 AM EDT Office Visit Bariatric Surgery - [place] [address] [place] [phone] Eli Jones MD [address] [facility] [address] [place] [address] Health Maintenance Due Date Last Done Comments DTaP,Tdap,and Td Vaccines (1 - Tdap) 2004 Hepatitis B Vaccines (1 of 3 - 19+ 3-dose series) 2004 COVID-19 Vaccine ( - 2023-2 5 season) 2024 Cholesterol Screening (Lipid Panel) 06/26/2024 Depression Screening 06/26/2024 HIV Screening 06/26/2024 Hepatitis C Screening 06/26/2024 Social Influencers of Health Screening 06/26/2024 Influenza Vaccine (#1) 2025 HIB Vaccines Aged Out No longer [...] 5 Years) and At-Risk Patients (6 to 49 Years) Aged Out No longer eligible b ased on patient's age to complete this topic RSV Immunization Patients Un elvin 20 months Aged Out No longer eligible b ased on patient's age to complete this topic Varicella Vaccines Aged Out No longer eligible based on patient's age to complete this topic Insurance [facility] PLAN Care Teams Label Maker Relationship Specialty Start Date End Date Idania Pritchett MD [address] [place] [phone] PCP - General Internal Medicine 09/28/24
== END 2025-03-11 11:36 | disposition home or self-care (01) ==
LOC: HO.HNS 10:37
PROVIDERS: PCP Internal Medicine; Visit Provider Physician Assistant
DX: M54.2 Cervicalgia (principal)
CPT/HCPCS: 99024

== ENCOUNTER → 2025-03-11 10:47 | Outpatient (BNV) | payer OTHER, SELFPAY | PROVIDERS: Visit Provider Radiology Diagnostic Radiology | DX: M54.12 Radiculopathy, cervical region (principal); Z98.1 Arthrodesis status | CPT/HCPCS: 72050 ==

== ENCOUNTER 2025-04-05 06:02 | Outpatient (REF) | payer OTHER, SELFPAY ==
--- OUTSIDE RECORDS SUMMARY | 2025-04-05 06:05 | XMS_ITS | Clinical Summary ---
Author Organization [facility] ity Address [address] [place] [address] Care Team Providers Care Cafeteria Manager Name Role Phone Idania Pritchett MD Primary Care Provider [phone] Social History Tobacco Use Types Packs/Day Years [...] AM EDT Office Visit Bariatric Surgery - [place] [address] [place] [phone] Eli Jones MD [address] [facility] [address] [place] [address] Health Maintenance Due Date Last Done Comments DTaP,Tdap,and Td Vaccines (1 - Tdap) 2004 Hepatitis B Vaccines (1 of 3 - 19+ 3-dose series) 2004 COVID-19 Vaccine ( - 2023-2 5 season) 2024 Cholesterol Screening (Lipid Panel) 06/26/2024 HIV Screening 06/26/2024 Hepatitis C Screening 06/26/2024 Social Influencers of Health Screening 06/26/2024 Depression Screening 08/26/2024 Influenza Vaccine (#1) 2025 HIB Vaccines Aged [...] patient's age to complete this topic Insurance [facility] PLAN Care Teams Cafeteria Manager Relationship Specialty Start Date End Date Idania Pritchett MD [address] [place] [phone] PCP - General Internal Medicine 09/28/24
[2025-04-05 08:17] LABS: Cholesterol 111 mg/dL (<200); HDL Cholesterol 42 mg/dL (>40); Triglycerides 99 mg/dL (<150)
== END 2025-04-05 06:03 | disposition home or self-care (01) ==
LOC: HO.LAB 06:02
PROVIDERS: PCP Internal Medicine; Visit Provider Internal Medicine Cardiovascular Disease
DX: E78.2 Mixed hyperlipidemia (principal)
CPT/HCPCS: 36415; 80061

== ENCOUNTER 2025-04-13 14:58 | Outpatient (AMB) | payer OTHER, SELFPAY ==
[2025-04-13 15:03] VITALS: BP 120/80; PULSE 92; BMI 33.5
--- NOTE | 2025-04-13 15:03 | MHC.OFFVIS ---
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 He is very motivated. Since I last saw him he has lost about 30 lb. He underwent a coronary calcium score which showed calcium score of 0. He is currently on dual therapy with Crestor and fenofibrate with significantly improved lipid profile. He feels well. He said his shortness of breath has improved. He feels more energetic. [facility] Medical History BMI 38.0-38.9,adult Obesity Cervical radiculopathy Lipid disorder Surgical History History of testicular surgery Family History Father Smoker ETOH abuse History of splenectomy Substance use disorder Mother Smoker Maternal Grandmother No problems noted. Maternal Grandfather HTN (hypertension) Diabetes mellitus Paternal Grandmother No problems noted. Paternal Grandfather No problems noted. Brother No problems noted. Brother No problems noted. Brother No problems noted. Brother No problems noted. Sister No problems noted. Son No problems noted. Daughter No problems noted. Other Mental health disorder Social History Housing: Apartment Are you a primary nanny caregiver to a significant other at home: No Do you presently have visiting nurse or other home services: No Alcohol intake: never Comment: COUNTS CORRECT Patient Tobacco Use Status: Never used Tobacco Tobacco use type: Cigarette e-Cigarette/Vaping Use: Never Used service: No Current occupational status: employed Cognitive needs: No Hearing needs: No Vision needs: No Review of Systems Const Denies chills, Denies fatigue, Denies fever(s), Denies frequent falls, Denies weakness, Denies weight gain and Denies weight loss ENT Denies dizziness Card Denies chest pain, Denies leg edema, Denies lightheadedness, Denies palpitations, Denies dyspnea, Denies dyspnea on exertion, Denies orthopnea and Denies other (loss of consciousness) Resp Denies cough, Denies dyspnea and Denies dyspnea on exertion GI Denies hematochezia and Denies change in stool character Musc Denies abnormal gait, Denies muscle weakness, Denies numbness, Denies radiating pain into limb and Denies tingling Neuro Denies abnormal gait, Denies dizziness, Denies frequent falls, Denies numbness, Denies tingling and Denies weakness Endo Denies fatigue and Denies palpitations Physical Exam Vital Signs: Last Vital Signs Pulse 92 04/13/25 15:03 BP 120/80 04/13/25 15:03 BMI result Body Mass Index 33.5 Const General: cooperative, comfortable, no acute distress, well developed, alert and awake Nutritional Appearance: well nourished and obese Orientation/consciousness: patient oriented x3 Limitations: no limitations HEENT Head: Yes normocephalic and Yes atraumatic Neck Neck: Yes trachea midline, Yes supple and Yes no JVD Resp Effort & Inspection: normal respiratory effort Auscultation: clear to auscultation bilaterally Cardio Jugular venous distension: no JVD Palpation: normal PMI Rate: regular rate Rhythm: regular rhythm Heart sounds: S1 normal heart sound present, S2 normal heart sound present, no click, no gallops and no murmurs GI Auscultation: normal bowel sounds Skin General skin exam: no rashes or lesions noted Neuro General: patient oriented x3 and no focal motor deficits Extrem General: Yes no clubbing, cyanosis or edema Psych Appearance: grossly normal Assessment & Plan Assessment & Plan (1) Hyperlipidemia, mixed: Code(s): E78.2 - Mixed hyperlipidemia Category: Medical Plan: Severe mixed hyperlipidemia in this young man with family history with 0 coronary calcium score. He has lost 30 lb and then current therapy with Crestor and fenofibrate his lipid panel is extremely well improved with LDL of 50 and HDL of 42. His triglycerides have reduced to 99 mg per dL. Overall excellent results. As he continues to lose weight we can continue to reassess his lipid panel and then gradually back off on his fibrate therapy as he loses weight and if his triglycerides remain controlled. Continue with statin therapy. Advise at least annual lipid panel and liver panel. Encouraged to continue to participate in good lifestyle modification which she is currently doing. Coronary calcium score can be repeated at age 45. Will follow up in the clinic if need be. Thank you for allowing me to partake in his care Medications: Changed From baclofen 10 mg PO BEDTIME 14 tabs 0RF muscle spasms To baclofen 10 mg PO BEDTIME PRN Coding Level of Care Code Est Pt Level 3 (76368) Complex EM visit Add On G2211 Diagnoses Hyperlipidemia, mixed E78.2
--- OUTSIDE RECORDS SUMMARY | 2025-04-13 16:20 | XMS_ITS | Clinical Summary ---
Author Organization [facility] ity Address [address] [place] [address] Care Team Providers Care Technology Methodology Consultant Name Role Phone Idania Pritchett MD Primary Care Provider [phone] Social History Tobacco Use Types Packs/Day Years Used Date Smoking Tobacco: Never Assessed Sex and Gender Information Value Date Recorded Sex Assigned at Not on file Legal Sex Male 8:01 PM EDT Gender Identity Not on file Sexual Orientation Not on file Plan of Treatment Upcoming Encounters Date Type Department Care Team ([facility] st Contact Info) Description 04/27/2025 10:45 AM EDT Office Visit Bariatric Surgery - [place] [address] [place] [id number] Eli Jones MD [address] [place] [address] Health Maintenance Due Date Last Done Comments [...] patient's age to complete this topic Insurance [facility] [address] Care Teams Technology Methodology Consultant Relationship Specialty Start Date End Date Idania Pritchett MD [address] [place] [phone] PCP - General Internal Medicine 09/28/24
== END 2025-04-13 15:28 | disposition home or self-care (01) ==
LOC: HO.HCS 14:59
PROVIDERS: PCP Internal Medicine; Visit Provider Internal Medicine Cardiovascular Disease
DX: E78.2 Mixed hyperlipidemia (principal)
CPT/HCPCS: 99213

== ENCOUNTER → 2025-04-13 14:58 | Outpatient (BNVA) | payer OTHER, SELFPAY | PROVIDERS: PCP Internal Medicine; Visit Provider Internal Medicine Cardiovascular Disease | DX: E78.2 Mixed hyperlipidemia (principal) | CPT/HCPCS: 99212 ==

== ENCOUNTER 2025-07-31 07:08 | Outpatient (REF) | payer OTHER, SELFPAY | END 2025-07-31 07:09 | disposition home or self-care (01) | LOC: HO.LAB 07:08 | PROVIDERS: PCP Internal Medicine; Visit Provider Nurse Practitioner Family | DX: N52.9 Male erectile dysfunction, unspecified (principal) | CPT/HCPCS: 36415; 84402; 84403 ==

== ENCOUNTER 2025-08-23 11:48 | Outpatient (AMB) | payer OTHER, SELFPAY ==
--- NOTE | 2025-08-23 11:48 | A.OFFVIS_ITS ---
Intake Visit Reasons: 6M/TESTO Intake Note: Patient presents today for Telehealth for erectile dysfunction Urology Med: Tadalafil Antibiotic Allergy: Penicillins Blood Thinner: None Labs done : 07/31/25 Total Testosterone 524, Fr Testosterone 99.6 Eyeglass Maker Required: No Accompanied by: Self / Same As Patient Allergies penicillin V Allergy (Unknown, Verified 08/23/25 12:15) unknown - childhood reaction simvastatin Adverse Reaction (Intermediate, Verified 08/23/25 12:15) dry mouth/sores on tongue Medication List - Last Reconciled 08/23/25 by YONNY Reyna baclofen 10 mg PO BEDTIME PRN cyclobenzaprine 10 mg PO BID PRN fenofibrate micronized 134 mg PO QPM lidocaine 5% 1 patch topical DAILY PRN phentermine 37.5 mg PO DAILY phentermine 37.5 mg PO DAILY phentermine 37.5 mg PO DAILY phentermine 37.5 mg PO DAILY rosuvastatin 40 mg PO DAILY tadalafil (Cialis) 5 mg PO DAILY 90 days HPI Comments Details: Devin is a very pleasant 39-year-old male patient of Dr. Pritchett. He has a past medical history of lipid disorder. He is being followed up on today via video telehealth for his borderline hypogonadism. In discussion with the patient today he reports to be doing and feeling well. He discusses his recent trip to [place]. He also discusses his intentional weight loss over the last few months and how well he has been feeling. He reports compliance with daily dosing of tadalafil daily. He also discusses how helpful he feels this has been. Of note, patient had previously underwent stimulation testing with Clomid at which time recommendations were made for continuation of low-dose Clomid as testosterone and LH levels had improved however patient wished to proceed without medication. Recent labs were reviewed with the patient today as noted and trended below: PSA: 09/19 0.3, 11/17 0.3 Estradiol: 09/19 48, 11/17 66 FSH 09/19 1.2, FSH 3.9 LH 09/19 2.8, 11/17 5.6, 01/17 2.9 Prolactin 09/19 14.9, 11/17 9.2 Total testosterone 05/29 347, 09/19 293, 11/17 611, 01/17 374, 08/19 524 Free testosterone 09/19 55.7, 11/17 107.5, 01/17 87.1, 08/19 99.6 SHBG 09/19 19, 11-17 28 We discussed increase in testosterone levels over the last 6 months. He would like to continue with low-dose Cialis as prescribed. He otherwise denies any bothersome urinary issues. He denies urinary urgency, urinary frequency, incontinence, nocturia, hematuria, dysuria, foul smelling urine, changes to urinary stream, flank pain, fever, and or chills. He is happy with his current voiding parameters. He denies any previous recreational drug use. He denies any previous trauma however he does report previously having surgical intervention for right-sided testicular/scrotal cyst removal approximately 12 years ago. He denies any previous opioid and or steroid exposure. All questions were answered. He otherwise offers no other issues or concerns at this time. [facility] Medical History BMI 29.0-29.9,adult Overweight BMI 30.0-30.9,adult BMI 38.0-38.9,adult Obesity Cervical radiculopathy Lipid disorder Surgical History History of testicular surgery Family History Father Smoker ETOH abuse History of splenectomy Substance use disorder Mother Smoker Maternal Grandmother No problems noted. Maternal Grandfather HTN (hypertension) Diabetes mellitus Paternal Grandmother No problems noted. Paternal Grandfather No problems noted. Brother No problems noted. Brother No problems noted. Brother No problems noted. Brother No problems noted. Sister No problems noted. Son No problems noted. Daughter No problems noted. Other Mental health disorder Social History Housing: Apartment Are you a primary career developer to a significant other at home: No Do you presently have visiting nurse or other home services: No Alcohol intake: never Comment: COUNTS CORRECT Patient Tobacco Use Status: Never used Tobacco Tobacco use type: Cigarette e-Cigarette/Vaping Use: Never Used service: No Current occupational status: employed Cognitive needs: No Hearing needs: No Vision needs: No Review of Systems Const All systems reviewed & are unremarkable except as noted in HPI and below Physical Exam Const General: cooperative, healthy appearing, comfortable, no acute distress, well developed, alert and awake Orientation/consciousness: patient oriented x3 Resp Effort & Inspection: normal respiratory effort and able to speak in complete sentences Neuro General: patient oriented x3 Psych Appearance: grossly normal and well kempt Speech and movement: Clear speech present Affect: normal affect Attitude: cooperative Thought process: Normal thought process present Thought content: Normal thought content present Insight: Fair insight present (Psych) Judgement: Fair judgement present (Psych) Telehealth Telehealth Telehealth Platform: Luminescent Location of provider rendering services: practice address Location of patient: address on file Patient Identification confirmed using: Name, : Yes Telehealth method: video Patient verbally consented to treatment: Yes Patient verbally consented to billing insurance company: Yes Patient informed of any privacy concerns related to visit: Yes Minutes spent on Phone/Video with Pt.: 15 Assessment & Plan Assessment & Plan (1) Erectile dysfunction: Code(s): N52.9 - Male erectile dysfunction, unspecified Category: Medical (2) Fatigue: Code(s): R53.83 - Other fatigue Category: Medical Plan Most recent lab results reviewed with the patient today; as noted above. He currently denies any bothersome urinary issues or concerns. He reports be happy with current voiding parameters. Will continue low-dose Cialis as discussed and prescribed. All questions were answered. Will continue with surveillance monitoring. Will obtain testosterone, free testosterone, and PSA in 6 months. We did discussed the importance of continue with lifestyle modifications to assist with urological health as well as overall health and well-being. Follow-up in 6 months with labs to be completed prior; or sooner with any issues, concerns, and or questions. Orders: Orders Testosterone, Free/Total 6 Months N52.9 - Male erectile dysfunction, unspecified Prostate Specific Antigen 6 Months N52.9 - Male erectile dysfunction, unspecified Medications: Refilled tadalafil (Cialis) [id number] [facility] [id number] Member [id number] 5 mg PO DAILY 90 tabs 2RF 90 days Patient Instructions: The patient had an opportunity to ask questions regarding the treatment plan. All questions were answered. Physical exam, labs, and imaging were discussed and reviewed in detail. As well as risks, benefits, and discussion of treatment choices. No major barriers to understanding were identified. The patient expressed understanding and agreement with the above treatment plan. The patient was made aware they should contact our office by phone for worsening of their current condition, the appearance of new symptoms, or with any questions or concerns. Compliance is encouraged with any medications and follow up testing that is ordered. It is a privilege to be allowed the opportunity to participate in? your urological care.? Again, if you have any questions or concerns If you have any questions or concerns please do not hesitate to contact me. The office is [phone]. This note is constructed using voice recognition software. While every effort has been made to ensure accuracy territory sales consultant errors may have been included. Yours sincerely, PRAVEEN Reyna Coding Level of Care Code Tele Est Pt Level 3 (20349) Diagnoses Erectile dysfunction N52.9 Fatigue R53.83
== END 2025-08-23 13:29 | disposition home or self-care (01) ==
LOC: HO.HUSH 11:48
PROVIDERS: PCP Internal Medicine; Visit Provider Nurse Practitioner Family
DX: N52.9 Male erectile dysfunction, unspecified (principal); R53.83 Other fatigue
CPT/HCPCS: 99213